=== PATIENT | female | born 1980 | race Caucasian/White ===

== ENCOUNTER 2024-11-29 12:34 | Emergency (ER) | payer OTHER, SELFPAY ==
[2024-11-29 12:44] VITALS: BP 145/87; PULSE 89; RESP 20; TEMP 36.3; O2SAT 100
--- NOTE | 2024-11-29 12:49 | ED.ABDPAIN ---
HPI - Abdominal Pain General Chief Complaint: Abdominal Pain Stated Complaint: Back pain, constipation, vomiting Source: patient and RN notes reviewed Mode of arrival: ambulatory Limitations: no limitations History of Present Illness HPI narrative: [age] old with a history of Crohn's disease presented for complaint nausea vomiting, and LLQ abdominal pain; onset today. Describes the LLQ pain as stabbing. Also reports constipation which she described as small hard BMs over the past few days. Endorses pressure to the mid low back and stomach burning sensation. Pt was diagnosed with cyclical vomiting in Sep, which she says has improved for about 2 weeks. During that time she has had little appetite. Did not try Zofran today, stating it no longer works and everything makes her vomit. Unable to keep any food down today. Pt has hx lumbar fusion for DDD with anterior approach (2016). Has been taking Percocet over the past few days for back pain after moving. Related Data Allergies Allergy/AdvReac Type Severity Reaction Status Date / Time prochlorperazine Allergy Intermediate RACING Verified 11/29/24 12:50 HEART, JITTERY, ANXIETY sulfasalazine Allergy Intermediate RACING Verified 11/29/24 12:50 HEART, SOB Review of Systems Review of Systems: CONSTITUTIONAL: Denies body aches, fever, chills ENT: Denies rhinorrhea, congestion CARDIOVASCULAR: Denies chest pain, palpitations, or edema. RESPIRATORY: Denies cough or dyspnea. GASTROINTESTINAL: Endorses LLQ abdominal pain, nausea, vomiting, constipation. Denies diarrhea, hematochezia, melena, hematemesis GENITOURINARY: Denies dysuria, hematuria, or CVA tenderness. MUSCULOSKELETAL: reports low back pain, denies joint pain, or myalgia. NEUROLOGIC: Denies headache, numbness, tingling, or weakness. All systems reviewed & are unremarkable except as noted in HPI and below PMFSH Past Medical History Medical History (Updated 11/29/24 @ 13:16 by Bev Crook, BHAKTI) Fusion of lumbar spine Rheumatoid arthritis Crohn disease Comments At time of signature, I have reviewed and agree with nursing past medical, surgical, social and family history unless otherwise noted. Please see nursing chart for further information. There is no relevant family history pertinent to the presenting complaint Exam Narrative: GENERAL: ill-appearing, nontoxic and in no acute distress. ENT: Mucous membranes pink and moist. CHEST: No respiratory distress. Clear to auscultation. HEART: Regular rate and rhythm. No murmur appreciated. Normal peripheral pulses. ABDOMEN: abd soft, nondistended, decreased bowel sounds. Body habitus limits exam. Tender abdomen LLQ; No guarding, rebound tenderness, asymmetry EXTREMITIES: Normal range of motion. No edema. SKIN: Warm, dry, no rash. Capillary refill normal. Normal skin turgor. NEURO: No focal deficits. Alert and oriented x3. PSYCH: Normal affect. Course Course Emergency Course: Patient is aware of diagnosis, understands and agrees to treatment plan. Anticipatory guidance given. Patient agrees to follow-up as directed and is aware of reasons to seek care at the emergency department. Portions of this record may have been created with voice recognition software Level of Care: Express Care Visit Vital Signs Vital signs: Vital Signs Temperature 97.4 F L 11/29/24 12:44 Pulse Rate 89 11/29/24 12:44 Respiratory Rate 20 11/29/24 12:44 Blood Pressure 145/87 H 11/29/24 12:44 Pulse Oximetry 100 11/29/24 12:44 Oxygen Delivery Room Air 11/29/24 12:44 Temperature 97.4 F L 11/29/24 12:44 Pulse Rate 89 11/29/24 12:44 Respiratory Rate 20 11/29/24 12:44 Blood Pressure 145/87 H 11/29/24 12:44 Pulse Oximetry 100 11/29/24 12:44 Oxygen Delivery Room Air 11/29/24 12:44 Transfer Transfered to: [facility] Transportation: Other (Private vehicle) Transfer rationale: Pt is agreeable to transfer. Requests transfer to [facility] via private vehicle. Risks of transportation reviewed with pt including injury, worsening of condition and . v/u. Mother will be driving pt; Report called to hospital, spoke with Dr Carrasco, accepting physician. Pt is in stable condition at time of transfer. Advised to remain NPO and go directly to the hospital. MDM - Abdominal Pain MDM Narrative Medical decision making narrative: Pt presented with n/v, constipation and LLQ abdominal pain. Pt with frequent dry heaves in clinic. Offered Zofran, pt declined stating it no longer works and everything makes her vomit. Advised ER transfer. Requests [facility]. Differential Diagnosis Differential diagnosis: Likely abdominal pain, acute appendicitis, calculus of kidney, constipation, diverticulitis, gastroenteritis, pancreatitis and small bowel obstruction Discharge Plan Discharge Clinical Impression: Vomiting Patient Disposition: Acute Care Hospital Condition: Stable Patient Language: Italian Follow-up/Referrals: UNKNOWN,DOCTOR [Primary Care Provider] - Time of Disposition: 13:05
--- NOTE | 2024-11-29 13:10 | PC.NURSE ---
PT REPORTS SHE IS UNABLE TO TAKE ZOFRAN IT DOESN'T WORK, IT MAKES ME PUKE.
== END 2024-11-29 13:15 | disposition short-term general hospital (02) ==
PROVIDERS: Emergency Provider Nurse Practitioner Family
DX: R11.10 Vomiting, unspecified (principal); K50.90 Crohn's disease, unspecified, without complications; M06.9 Rheumatoid arthritis, unspecified; M51.369 Other intervertebral disc degeneration, lumbar region without mention of lumbar back pain or lower extremity pain
CPT/HCPCS: 99202; 99213; G0463

== ENCOUNTER 2024-11-29 13:38 | Emergency (ER) | payer OTHER, SELFPAY ==
--- NOTE | ~2024-11-29 | CT_ITS ---
EXAMINATION: CT abdomen pelvis w con DATE: 11/29/2024 16:21 INDICATION: n/v/constipation. hx crohns TECHNIQUE: Computed tomography (CT) of the abdomen and pelvis was performed with 100 mL Omnipaque-350 intravenous contrast. Automated exposure control and iterative reconstruction technique were employe d. The dose-length product was 1432.13 mGy-cm. COMPARISON: 02/09/2019. FINDINGS: Lower thorax: Unremarkable Liver: Normal. Biliary/Gallbladder: Gallbladder is normal. No bile duct dilation. Pancreas: No mass or duct dilation. Spleen: Normal. Adrenals:No mass. Kidneys: No suspicious mass, obstructing stone, or hydronephrosis. Punctate bilateral nonobstructing calcifications. GI tract: Large hiatal hernia containing approximately two thirds of the stomach, with organoaxial po sitioning. No abnormal wall thickening, pneumatosis, significant gastric distention, or surrounding i nflammatory change/fluid. No small or large bowel dilation. Normal appendix. Mesentery/Peritoneum: No ascites, mass, or free air. Retroperitoneum: No mass. Pelvis: Normal urinary bladder. IUD, the left limb extends to the uterine margin which is focally out pouching. Exophytic fundal uterine fibroid. Normal bilateral ovaries. Soft Tissues: Small uncomplicated acute fat-containing umbilical hernia Bones: No acute osseous finding. Uncomplicated appearing anterior lumbar fusion hardware. IMPRESSION: Large hiatal hernia containing two thirds of the stomach, no CT evidence of gastric inflammation, obs truction, or ischemia to suggest gastric volvulus. Punctate bilateral nephrolithiasis without evidence of obstructive uropathy. IUD with near perforation at the tip of the left limb. Reviewed, dictated and finalized at location K. IMPRESSION: Large hiatal hernia containing two thirds of the stomach, no CT evidence of gas tric inflammation, obstruction, or ischemia to suggest gastric volvulus. Punctate bilateral nephrolithiasis without evidence of obstructive uropathy. IUD with near perforation at the tip of the left limb.
[2024-11-29 13:40] VITALS: BP 146/84; PULSE 86; RESP 20; TEMP 36.5; O2SAT 100
[2024-11-29 14:42] VITALS: BP 143/86; PULSE 84; RESP 20; O2SAT 97
[2024-11-29 14:45] LABS: BEDSIDEPREGUCG Negative (Negative)
[2024-11-29 14:56] LABS: Basophils Percent Auto 0.4 % (0.2-1.2); Eosinophils Percent Auto 0.2 % (0-4.4); Hematocrit 25.8 % (37.0-47.0); Hemoglobin 7.2 g/dL (12.0-15.0); Immature Granulocyte Absolute 0.05 K/mm3 (0.00-0.031); Immature Granulocyte Percent A 0.5 % (0-0.5); Lymphocytes Absolute Auto 0.98 K/mm3 (0.9-3.2); Lymphocytes Percent Auto 9.3 % (18.3-44.2); Mean Corpuscular HGB Conc 27.9 g/dl (32-36); Mean Corpuscular Hemoglobin 21.8 pg (26-34); Mean Corpuscular Volume 77.9 fl (80-100); Mean Platelet Volume 11.9 fl (7.4-10.4); Monocytes Absolute Auto 0.4 K/mm3 (0.1-0.6); Monocytes Percent Auto 3.3 % (2.6-8.5); Neutrophils Absolute Auto 9.1 K/mm3 (1.3-6.7); Neutrophils Percent Auto 86.3 % (45.5-73.1); Platelet Count Result 297 k/mm3 (150-375); Red Blood Count 3.31 M/mm3 (4.2-5.4); Red Cell Distribution Width 19.3 % (11.5-14.5); White Blood Count 10.5 K/mm3 (4.5-10.0)
[2024-11-29 15:00] LABS: Add Urine Microscopic? YES; Appearance Urine Cloudy (Clear); Bacteria Urine None Seen /hpf; Bilirubin Urine Negative (Negative); Blood Urine Negative (Negative); Color Urine Yellow (Yellow); Glucose Urine UA Negative (Negative); Ketones Urine 3+ mg/dL (Negative); Leukocyte Esterase Ur Negative LEU/UL (Negative); Nitrate Urine Negative (Negative); Non Pathogenic Casts 0-2; Protein Urine Trace mg/dL (Negative); RBC Urine 0-2 /hpf (0-2); Squamous Epithelial Cell Urine None Seen /hpf (Few); Urobilinogen Urine 0.2 mg/dL (<2.0); WBC Urine 0-5 /hpf (0-3); pH Urine 7.5 (5.0-9.0)
[2024-11-29 15:13] LABS: Alanine Aminotransferase 20 U/L (6-35); Albumin Level 4.5 g/dL (3.5-5.1); Alkaline Phosphatase 87 U/L (38-126); Anion Gap 14 mmol/L (4-12); Aspartate Amino Transferase 33 U/L (14-36); Bilirubin,Total 0.6 mg/dL (0.2-1.3); Blood Urea Nitrogen 12 mg/dL (7-17); Carbon Dioxide 22 mmol/L (22-30); Chloride 105 mmol/L (98-107); Estimated CRCL calculation 114 ml/min; Estimated Glomerular Filt Rate > 60; Glucose 145 mg/dL (65-110); Lipase 50 U/L (23-300); Potassium 4.4 mmol/L (3.4-5.0); Sodium 141 mmol/L (137-145)
[2024-11-29 15:27] LABS: Platelet Estimate Adequate (Adequate); Schistocytes None Seen
[2024-11-29 15:28] LABS: Anisocytosis 3+; Hypochromasia 1+
--- NOTE | 2024-11-29 15:28 | ED_ITS ---
HPI - Abdominal Pain General Chief Complaint: Abdominal Pain Stated Complaint: Abdominal, Back pain/constipation and vomiting Time Seen by Provider: 11/29/24 14:30 History of Present Illness HPI narrative: 44-year-old female with a past medical history including Crohn's, rheumatoid arthritis, cyclic vomiting syndrome. Patient has had multiple evaluations by GI in the past and has had imaging studies and multiple biologic agent treatments. She has been stating she has had nausea vomiting for several days and not able to tolerate p.o. intake. She states she has been down with some chronic back pain, took Percocet at home for this and had a last bowel movement yesterday. Reports nausea vomiting and retching today. Denies any fever, chills, chest pain, shortness a breath. No injury or trauma. Was otherwise in her normal state of health. Related Data Allergies Allergy/AdvReac Type Severity Reaction Status Date / Time prochlorperazine Allergy Intermediate RACING Verified 11/29/24 14:44 HEART, JITTERY, ANXIETY sulfasalazine Allergy Intermediate RACING Verified 11/29/24 14:44 HEART, SOB Review of Systems 2 Review of Systems: As reviewed above in HPI [facility] Past Medical History Medical History Fusion of lumbar spine Rheumatoid arthritis Crohn disease Exam 2 Narrative: GENERAL: Retching and vomiting, not any acute physical distress, answering questions appropriately HEAD: [Normocephalic, atraumatic.] EYES: [PERRLA and EOMI.] ENT: Nares clear, no rhinorrhea or epistaxis. Mucous membranes moist. NECK: Supple. CHEST: [Clear to auscultation. No respiratory distress.] HEART: [Regular rate and rhythm]. No murmur heard. [Normal peripheral pulses.] ABDOMEN: Obese but nondistended, [nontender], [No rigidity or guarding] EXTREMITIES: Normal range of motion. [No edema.] SKIN: Warm, dry, no rash. NEURO: [No focal deficits]. Alert and oriented [x3.] PSYCH: [Normal mood and affect.] Course Vital Signs Vital signs: Vital Signs Temperature 36.5 C 11/29/24 13:40 Pulse Rate 86 11/29/24 13:40 Respiratory Rate 20 11/29/24 13:40 Blood Pressure 146/84 H 11/29/24 13:40 Pulse Oximetry 100 11/29/24 13:40 Oxygen Delivery Room Air 11/29/24 13:40 Temperature 36.5 C 11/29/24 13:40 Pulse Rate 92 11/29/24 18:24 Respiratory Rate 25 H 11/29/24 18:24 Blood Pressure 148/85 H 11/29/24 18:24 Pulse Oximetry 99 11/29/24 18:24 Oxygen Delivery Room Air 11/29/24 13:40 MDM - Abdominal Pain MDM Narrative Medical decision making narrative: 44-year-old female with a past medical history including cyclic vomiting syndrome, Crohn's disease, rheumatoid arthritis. She is on several a biologic agents and has had 3 episodes of cyclic vomiting since this last year. She has not had any antiemetic therapy at home. Endorses some constipation but last bowel movement was yesterday. She has an obese abdomen that is soft and nontender, retching throughout the examination with spit up without any vomiting. States this feels like her normal cyclic vomiting syndrome. Has had multiple GI evaluations previously. She is not any acute distress. Has a otherwise reassuring set of vitals with stable hypertension. Considerations presently are for gastroenteritis, gastritis, cyclic vomiting syndrome, cannabis hyperemesis, less likely intra-abdominal process such as bowel obstruction or Crohn's flare. Workup was ordered this time including CBC, CMP, lipase, test, urinalysis. A CT of the abdomen pelvis was ordered she was given a fluid bolus with D5 LR, Haldol and Benadryl was ordered for vomiting. Patient was frequent re-evaluated with significant improvement her nausea and vomiting. She states she was no longer nauseous or retching but had some restless legs likely secondary to the Haldol. She is given Atarax additional Benadryl which resolved this. Patient's workup shows no leukocytosis, anemia 7.2 which is largely worse than her baseline but not severe. Not requiring blood transfusion. Normal platelet count. No active bleeding. Electrolytes show no derangements, normal renal function, normal glucose and LFTs. Normal lipase. Urinalysis shows some ketones likely secondary to starvation ketosis from her nausea vomiting. No signs of infection the urine. Negative test. CT scan shows a large hiatal hernia containing 2/3 of the stomach, patient knows that she has a hiatal hernia but did not notice this severe. No evidence of gastric inflammation obstruction or ischemia. There is also evidence of an IUD with left limb extending to the uterine margin concerning for focal outpouching. I discussed the CT findings with the OBGYN on-call Dr. Mazariegos who was not concerned based on the imaging and the read and patient can follow- up outpatient with either her her regular OBGYN for removal. Patient was made aware of the diagnosis here as well as the CT findings. She has been symptomatic improved and hemodynamically stable. She is safe and comfortable for discharge home at this time with regular PCP follow-up. She will be sent home with OBGYN and PCP follow-up. Medical Records Attestation: I reviewed the patient's medical records. Lab Data Attestation: I reviewed the patient's lab results. 11/29/24 14:45 11/29/24 14:45 Labs: Lab Results 11/29/24 11/29/24 Range/Units 14:42 14:45 WBC 10.5 H (4.5-10.0) K/mm3 RBC 3.31 L (4.2-5.4) M/mm3 Hgb 7.2 L (12.0-15.0) g/dL Hct 25.8 L (37.0-47.0) % MCV 77.9 L (80-100) fl MCH 21.8 L (26-34) pg MCHC 27.9 L (32-36) g/dl RDW 19.3 H (11.5-14.5) % Plt Count 297 (150-375) k/mm3 MPV 11.9 H (7.4-10.4) fl Immature Gran % (Auto) 0.5 (0-0.5) % Neut % (Auto) 86.3 H (45.5-73.1) % Lymph % (Auto) 9.3 L (18.3-44.2) % [place] % (Auto) 3.3 (2.6-8.5) % Eos % (Auto) 0.2 (0-4.4) % Baso % (Auto) 0.4 (0.2-1.2) % Lymph # (Auto) 0.98 (0.9-3.2) K/mm3 [place] # (Auto) 0.4 (0.1-0.6) K/mm3 Eos # (Auto) 0.0 (0-0.3) K/mm3 Baso # (Auto) 0.0 (0.0-0.1) K/mm3 Abs Immat Gran (auto) 0.05 H (0.00-0.031) K/mm3 Absolute Neuts (auto) 9.1 H (1.3-6.7) K/mm3 Absolute Nucleated RBC 0.000 (0.0-0.012) K/mm3 Band Neutrophils % 0 (0-6) % Nucleated RBC % 0.0 (0.0-0.2) % Platelet Estimate Adequate (Adequate) Clumped Platelets Present Hypochromasia 1+ Anisocytosis 3+ Microcytosis 1+ (NORMAL) Schistocytes None seen Sodium 141 (137-145) mmol/L Potassium 4.4 (3.4-5.0) mmol/L Chloride 105 (98-107) mmol/L Carbon Dioxide 22 (22-30) mmol/L Anion Gap 14 H (4-12) mmol/L BUN 12 (7-17) mg/dL Creatinine 0.73 (0.7-1.0) mg/dL Estim Creat Clear Calc 114 ml/min Estimated GFR > 60 (59 - ) Glucose 145 H (65-110) mg/dL Calcium 9.0 (8.4-10.2) mg/dL Total Bilirubin 0.6 (0.2-1.3) mg/dL AST 33 (14-36) U/L ALT 20 (6-35) U/L Alkaline Phosphatase 87 (38-126) U/L Total Protein 8.0 (6.3-8.2) g/dL Albumin 4.5 (3.5-5.1) g/dL Lipase 50 (23-300) U/L Urine Color Yellow (Yellow) Urine Appearance Cloudy H (Clear) Urine pH 7.5 (5.0-9.0) Ur Specific [place] 1.020 (1.001-1.035) Urine Protein Trace (Negative) mg/dL Urine Glucose (UA) Negative (Negative) mg/dL Urine Ketones 3+ H (Negative) mg/dL Ur Blood (Man) Negative (Negative) Urine Nitrate Negative (Negative) Urine Bilirubin Negative (Negative) Urine Urobilinogen 0.2 (<2.0) mg/dL Leukocyte Esterase Rfl Negative (Negative) IVAN/UL Urine RBC 0-2 (0-2) /hpf Urine WBC 0-5 (0-3) /hpf Ur Squamous Epith Cells None seen (Few) /hpf Urine Bacteria None seen /hpf Urine Casts 0-2 POC Urine HCG, Qual Negative (Negative) Imaging Data Attestation: I personally reviewed and interpreted this imaging study as follows: My impression: Impressions Abdomen/Pelvis CT 11/29/24 16:29 IMPRESSION: Large hiatal hernia containing two thirds of the stomach, no CT evidence of gastric inflammation, obstruction, or ischemia to suggest gastric volvulus. Punctate bilateral nephrolithiasis without evidence of obstructive uropathy. IUD with near perforation at the tip of the left limb. Radiologist's impression: ITS Impressions Abdomen/Pelvis CT 11/29/24 16:29 IMPRESSION: Large hiatal hernia containing two thirds of the stomach, no CT evidence of gastric inflammation, obstruction, or ischemia to suggest gastric volvulus. Punctate bilateral nephrolithiasis without evidence of obstructive uropathy. IUD with near perforation at the tip of the left limb. Discharge Plan Discharge Clinical Impression: Cyclic vomiting syndrome, Large hiatal hernia, Malpositioned IUD Patient Disposition: Home, Self-Care Condition: Stable Instructions: Antibiotic Form, Hiatal Hernia (DC), Cyclic Vomiting Syndrome (ED) Additional Instructions: Your CT scan shows a large hiatal hernia containing 2/3 of your stomach which is likely worsening your cyclic vomiting syndrome. Will refer you to a general surgeon to evaluate you outpatient for this and potentially offer treatment regimens or surgery to fix this. Your IUD is also malposition and which requires removal on outpatient basis. We have provided you an OBGYN they can call and see on a short-term basis or follow-up with your regular OBGYN for this. Return if you have any new or worsening concerns such as intractable nausea, vomiting abdominal or pelvic pain, fever chills or any other concerns. We will head you home with some medications to control cyclic vomiting if it recurs at home. Patient Language: [place] Prescriptions: New metoclopramide HCl [Reglan] 10 mg tablet 10 mg PO Q6H PRN (Reason: nausea and vomiting) Qty: 20 0RF diphenhydramine HCl 50 mg capsule 50 mg PO HS PRN (Reason: nausea and vomiting) Qty: 20 0RF Follow-up/Referrals: Prelutskdemarcus,Len Harrison [Other] Neisha Mazariegos MD [Physician] - 3 Days (IUD removal) Kelby Echavarria DO [Physician] - 1 Week (Hiatal hernia eval for surgery) Time of Disposition: 19:05
[2024-11-29 15:30] LABS: Microcytosis 1+ (NORMAL)
[2024-11-29 15:31] LABS: Band Neutrophils Percent 0 % (0-6); Platelet Clumps Present
[2024-11-29] MEDS: diphenhydrAMINE HCl INJ 50 MG/ML VIAL 25 MG IV PUSH ×2 (15:34→18:24)
[2024-11-29] MEDS: HALOPERIDOL LACTATE 5 MG/ML VIAL IV PUSH (15:36)
[2024-11-29] MEDS: DEXTROSE 5%/LACTATED RINGERS 1,000 ML 1000 ML IV CONT (15:38)
[2024-11-29 15:40] VITALS: BP 146/89; PULSE 83; RESP 24; O2SAT 97
--- OUTSIDE RECORDS SUMMARY | 2024-11-29 15:43 | XMS_ITS | Patient Health Summary ---
Author Organization 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 This disclosure is being madepursuant to the Care Everywhere program and may not contain all information available regarding this patient. Last updated 18.[facility] Allergies * Cosyntropin(Unknown) * Sulfa Drugs * Sulfasalazine(Dizziness,Palpitations,Unknown) -Low Criticality * Wasp Venom Protein(Swelling) -Medium Criticality Medications * Be aware that medications may not be up to date on this document. Alwaysverify current medications with the patient. * acetaZOLAMIDE ER 12hr (Diamox Sequel) 500 MG capsule(Started 11/06/2022) TAKE 1 CAPSULE(500 MG) BY MOUTH TWICE DAILY * adalimumab (Humira Pen) 40 MG/0.4ML injection(Started 11/11/2022) INJECT 0.4 ML (40 MG) UNDER THE SKIN EVERY 14 DAYS * albuterol HFA (Proventil; Ventolin; Proair) 108 (90 Base) MCG/ACT inhaler (Started 02/19/2023) Inhale 2 (two) puffs by mouth every 6 hours as needed * amitriptyline (Elavil) 100 MG tablet(Started 05/18/2023) Take 1 (one) tablet by mouth at bedtime * ARIPiprazole (Abilify) 5 MG tablet(Started 05/19/2023) Take 1 (one) tablet by mouth every morning * azaTHIOprine (Imuran) 50 MG tablet(Started 10/02/2022) Take 2 tabs po qam and 1 tab po qpm. * EPINEPHrine (Epipen) 0.3 MG/0.3ML auto-injector pen Inject 0.3 mL into muscle once daily as needed * FLUoxetine (PROzac) 60 MG tablet(Started 04/28/2023) Take 1 (one) tablet by mouth once daily * gabapentin (Neurontin) 600 MG tablet(Started 11/06/2022) Take 1 (one) tablet by mouth at bedtime * gabapentin (Neurontin) 300 MG capsule(Started 11/06/2022) Take 1 (one) capsule by mouth 2 times daily * haloperidol (Haldol) 2 MG tablet(Started 02/17/2022) Take 1 (one) tablet by mouth every 6 hours as needed * levonorgestrel (Mirena) 20 MCG/DAY IUD(Started 04/02/2022) * methylphenidate CR (Metadate Cd) 20 MG capsule(Started 05/24/2023) * mirabegron ER 24hr (Myrbetriq) 25 MG tablet(Started 04/30/2023) Take 1 (one) tablet by mouth once daily 2 refills remaining * omeprazole (PriLOSEC) 20 MG capsule Take 2 (two) capsules by mouth once daily * ondansetron, disintegrating, (Zofran ODT) 8 MG tablet(Started 02/18/2022) 1 tablet on the tongue and allow to dissolve as needed Orally Once a day for 6 day(s) * traMADol (Ultram) 50 MG tablet 1 tablet as needed Orally every 6 hrs * meloxicam (Mobic) 15 MG tablet(Started 05/22/2023) Take 1 (one) tablet by mouth once daily 11 refills remaining Social History Tobacco Use Types Packs/Day Years Used Date Smoking Tobacco: Former Smokeless Tobacco: Never Tobacco Cessation:Counseling Given: Not Answered Alcohol Use Standard Drinks/Week Comments Not Currently 0 (1 standard drink = 0.6 oz pur e alcohol) Sex and Gender Information Value Date Recorded Sex Assigned at Female 04/02/2023 4:35 PM CDT Gender Identity Female 04/02/2023 4:35 PM CDT Sexual Orientation Bisexual 04/02/2023 4: 35 PM CDT Last Filed Vital Signs Vital Sign Reading Time Taken Comments Blood Pressure 126/86 06/02/2023 1:03 PM CDT Pulse 79 05/09/2023 10:50 PM CDT Temperature 36.6 C (97.8 F) 05/09/2023 10:50 PM CDT Respiratory Rate 20 05/09/2023 10:50 PM CDT Oxygen Saturation 98% 05/09/2023 11:32 PM CDT Inhaled Oxygen Concentration - - Weight 124.7 kg (275 lb) 06/02/2023 1:03 PM CDT Height 167.6 cm (5' 6 ) 06/02/2023 1:03 PM CDT Body Mass Index 44.39 06/02/2023 1:03 PM CDT Procedures * PAP IMAGE-GUIDED W HPV(Performed 06/02/2023) Performed for Encounter for gynecological examination with abnormal finding * HPV DETECTION HIGH RISK SHELDON(Performed 06/02/2023) Performed for Encounter for gynecological examination with abnormal finding * US PELVIS W TRANSVAG W DOP NON OB(Performed 05/09/2023) Performed for LLQ pain * URINE MICROSCOPIC ONLY(Performed 05/09/2023) * HCG URINE QUALITATIVE(Performed 05/09/2023) * URINALYSIS REFLEX TO MICROSCOPIC NO CULTURE(Performed 05/09/2023) * COMPREHENSIVE METABOLIC PANEL(Performed 05/09/2023) * CBC W AUTO DIFFERENTIAL(Performed 05/09/2023) * INFLUENZA A+B - POINT OF CARE (AMB)(Performed 10/25/2017) Performed for Acute nasopharyngitis * CYTOLOGY SMEAR PAP THIN PREP(Performed 08/23/1998) * CYTOLOGY SMEAR PAP THIN PREP(Performed 04/18/1998) Results * HPV DETECTION HIGH RISK SHELDON (06/02/2023 1:51 PM CDT) High Risk Human Papilloma Result Not detected Not detected 06/04/2023 11:19 AM CDT [facility] High Risk Human Papilloma Interp 06/04/2023 11:19 AM CDT [facility] Comment:High Risk Human Gianni lloma Virus was Not Detected. Pathology/Cytolo gy MISCELLANEOUS SAMPLES / Unknown 06/02/2023 1:51 PM CDT 06/03/2023 12:36 PM CDT [facility] - 06/04/2023 11:19 AM CDT Nucleic acid isolated from the specimen was analyzed with a nucleic acid amplification test (FDA approved Gen-Probe HPV Assay) to detect high risk human papilloma virus (Types: 16, 18, 31, 33, 35, 39, 45, 51, 52, 56, 58, 59, 66, and 68). The reference range is Not Detected . Comment: These test results should not be used as the sole basis for clinical assessment and treatment of patients. These results should always be correlated with other available data (cytology, histology, and clinical information). Roya Kimble MD LAB - MICROB IOLOGY ORDERABLES [facility] [address] [phone] * PAP IMAGE-GUIDED W HPV (06/02/2023 1:51 PM CDT) Case Report Gynecologic Cytology Report Case: [id number] Authorizing Provider: Roya Kimble, Collected: 06/02/2023 01:51 PM Ordering Location: [facility] - Received: 06/03/2023 12:36 PM [facility] Screen: Kwame Traore Specimen: THINPREP - IMAGE GUIDED, Cervix/Endocervix 06/06/2023 3:22 PM CDT [facility] LMP iud 06/06/2023 3:22 PM CDT [facility] Menstrual Status IUD 06/06/20 3:22 PM CDT [facility] Specimen Adequacy Satisfactory for evaluation, endocervical/trans formation zone component absent. 06/06/2023 3:22 PM CDT [facility] Categorization Negative for intraepithelial lesion or malignancy. 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 06/06/2023 3:22 PM CDT [facility] Pap Footnote The Pap Smear is a screening test. False positive and false negative results occur. Negative results do not preclude abnormalities, thus clinical correlation is required. This specimen was evaluated by the [employer] System along with an additional manual rescreening by a motor vehicle parts interpreter and/or pathologist. 06/06/2023 3:22 PM CDT [facility] Embedded Images 3:22 PM CDT [facility] Pathology/Cytolo gy MISCELLANEOUS SAMPLES / Unknown 06/02/2023 1:51 PM CDT 06/03/2023 12:36 PM CDT Roya Kimble MD LAB - PATHOL OGY/CYTOLOGY ORDERABLES Performing Organization Address City/State/[facility] Co de Phone Number [facility] [address] [phone] * US PELVIS W/TRANSVAG & DOPPLER (NON OB) (05/09/2023 6:54 PM CDT) Anatomical Region Laterality Modality Pelvis Ultrasound 05/09/2023 6:58 PM CDT Impressions 05/09/2023 7:00 PM CDT IMPRESSION: 1. Possible IUD seen within the uterus. 2. Likely pedunculated fibroid along the uterine fundus, follow-up could be obtained. 3. No evidence of torsion. > Interpreting Provider: Chadwick Randall MD on 05/09/2023 7:00 PM Narrative 05/09/2023 7:00 PM CDT PROCEDURE: US PELVIS W TRANSVAG W DOP NON OB DATE/TIME OF EXAM: 05/09/2023 6:54 PM CLINICAL INFORMATION: None relevant/not provided if blank. Indication: R10.32: Left lower quadrant pain N83.202: Unspecified ovarian cyst, left side Additional History: COMPARISON: None. TECHNIQUE: Real time transabdominal and transvaginal pelvic ultrasound was performed by the leather etcher with DICOM image capture. Grayscale images were obtained; additionally, Color Doppler and pulse wave Spectral Doppler interrogation was performed and interpreted. FINDINGS: Uterus measures 7.9 x 4.2 x 5.4 cm. A fibroid is seen in the uterus. There is an IVC be suggested in the region of the cervix and the endometrial stripe measures up to 5.6 mm. Complex appearing right ovarian cyst is noted measuring 3.2 x 2.8 x 2.7 cm. There is also no evidence of torsion. The right ovary measures 4.8 x 3.4 x 3.8 cm. The left ovary measures 2.0 x 1.0 x 1.3 cm. Procedure Note Chadwick Randall MD - 05/09/2023 PROCEDURE: US PELVIS W TRANSVAG W DOP NON OB DATE/TIME OF EXAM: 05/09/2023 6:54 PM CLINICAL INFORMATION: None relevant/not provided if blank. Indication: R10.32: Left lower quadrant pain N83.202: Unspecified ovarian cyst, left side Additional History: COMPARISON: None. TECHNIQUE: Real time transabdominal and transvaginal pelvic ultrasound wasperformed by the leather etcher with DICOM image capture. Grayscale images were obtained; additionally, Color Doppler and pulse wave Spectral Doppler interrogation was performed and interpreted. FINDINGS: Uterus measures 7.9 x 4.2 x 5.4 cm. A fibroid is seen in the uterus.There is an IVC be suggested in the region of the cervix and the endometrial stripe measures up to 5.6 mm. Complex appearing right ovarian cyst isnoted measuring 3.2 x 2.8 x 2.7 cm. There is also no evidence of torsion. The right ovary measures 4.8 x 3.4 x 3.8 cm. The left ovary measures 2.0 x1.0 x 1.3 cm. IMPRESSION: 1. Possible IUD seen within the uterus. 2. Likely pedunculated fibroid along the uterine fundus, follow-up couldbe obtained. 3. No evidence of torsion. > Interpreting Provider: Chadwick Randall MD on 05/09/2023 7:00 PM Bree London PA-C US ORDERABLES * (ABNORMAL) URINALYSIS REFLEX TO MICROSCOPIC NO CULTURE (05/09/2023 5:44 PM CDT) Color UA Yellow Straw, Yellow 05/09/2023 5:[address] [facility] Clarity UA Slt Cloudy(A) Clear 05/09/2023 5:[address] [facility] Glucose UA Negative Negative 05/09/2023 5:[address] [facility] Bilirubin UA Negative Negative 05/09/2023 5:[address] [facility] Ketone UA Negative Negative 05/09/2023 5:[address] [facility] Specific Polk UA 1.006 1.005 - 1.030 05/09/2023 5:[address] [facility] Blood UA 1+(A) Negative 05/09/2023 5:[address] [facility] pH UA 6.0 5.0 - 8.0 pH 05/09/2023 5:[address] [facility] Protein UA Negative Negative 05/09/2023 5:[address] [facility] Urobilinogen UA Negative Negative mg/dL 05/09/2023 5:[address] [facility] Nitrite UA Negative Negative 05/09/2023 5:[address] [facility] Leukocyte UA Negative Negative 05/09/2023 5:[address] [facility] Urine Microscopy Urine microscopy to follow 05/09/2023 5:[address] [facility] Urine URINE SPECIMEN OBTAINED BY CLEAN CATCH PROCEDURE / Unknown Collection / Unknown 05/09/2023 5:44 PM CDT 05/09/2023 5:[address] [facility] - 05/09/2023 5:51 PM CDT Bree London PA-C LAB - URINALYSIS O RDVICTORINA Performing Organization Address City/State/[facility] Co de Phone Number [facility] [address] [place] [address] * HCG URINE QUALITATIVE (05/09/2023 5:44 PM CDT) hCG Qualitative Urine Negative Negative 05/09/2023 5:[address] [facility] Urine URINE / Unknown Collection / Unknown 05/09/2023 5:44 PM CDT 05/09/2023 5:46 PM CDT Bree London PA-C LAB - URINALYSIS O RDERABLES Performing Organization Address [facility]/ZIP Co de Phone Number [facility] [address] [place], [place] [phone] * URINE MICROSCOPIC ONLY (05/09/2023 5:44 PM CDT) RBC UA 0-2 0 - 5 # /hpf 05/09/2023 5:[address] [facility] WBC UA 0-5 0 - 5 # /hpf 05/09/2023 5:[address] [facility] Bacteria UA None Seen None Seen 05/09/2023 5:[address] [facility] Squamous Epithelial Cells 3-5 0 - 5 /hpf 05/09/2023 5:[address] [facility] Urine URINE SPECIMEN OBTAINED BY CLEAN CATCH PROCEDURE / Unknown Collection / Unknown 05/09/2023 5:44 PM CDT 05/09/2023 5:[address] [facility] - 05/09/2023 5:55 PM CDT Bree London PA-C LAB - URINALYSIS O RDERABLES Performing Organization Address [facility] Co de Phone Number [facility] [address] [place], [place] [phone] * CBC W AUTO DIFFERENTIAL (05/09/2023 5:29 PM CDT) WBC 8.7 4.4 - 10.7 x10E9/L 05/09/2023 5:[address] [facility] WBC Corrected 05/09/2023 5:[address] [facility] RBC 4.32 3.80 - 5.20 x10E12/L 05/09/2023 5:[address] [facility] Hemoglobin 13.3 12.0 - 15.6 gm/dL 05/09/2023 5:[address] [facility] Hematocrit 40.9 35.9 - 45.5 % 05/09/2023 5:[address] [facility] MCV 94.7 80.7 - 98.3 fl 05/09/2023 5:[address] [facility] MCH 30.8 26.7 - 34.0 pg 05/09/2023 5:[address] [facility] MCHC 32.5 30.8 - 35.9 gm/dL 05/09/2023 5:[address] [facility] Platelet Count 271 153 - 416 x10E9/L 05/09/2023 5:[address] [facility] RDW-CV 13.1 12.1 - 14.9 % 05/09/2023 5:[address] [facility] MPV 9.5 9.4 - 12.9 fl 05/09/2023 5:[address] [facility] Neutrophils % 70.4 44.0 - 73.0 % 05/09/2023 5:[address] [facility] Lymphocytes % 22.5 20.0 - 43.0 % 05/09/2023 5:[address] [facility] Monocytes % 5.6 5.0 - 13.0 % 05/09/2023 5:[address] [facility] Eosinophils % 0.7 0.0 - 6.0 % 05/09/2023 5:[address] [facility] Basophils % 0.6 0.0 - 2.0 % 05/09/2023 5:[address] [facility] Immature Granulocytes 0.2 0 - 1 % 05/09/2023 5:[address] [facility] Neutrophil Absolute 6.12 2.01 - 7.14 x10E9/L 05/09/2023 5:[address] [facility] Lymphocytes Absolute 1.96 1.07 - 3.94 x10E9/L 05/09/2023 5:[address] [facility] Monocytes Absolute 0.49 0.26 - 1.07 x10E9/L 05/09/2023 5:[address] [facility] Eosinophils Absolute 0.06 0 - 0.47 x10E9/L 05/09/2023 5:[address] [facility] Basophils Absolute 0.05 0 - 0.08 x10E9/L 05/09/2023 5:[address] [facility] Immature Granulocytes Absolute 0.02 0.00 - 0.06 x10E9/L 05/09/2023 5:[address] [facility] nRBC Auto 0 /100 WBC 05/09/2023 5:[address] [facility] Blood BLOOD SPECIMEN / Unknown Venipuncture / Unknown 05/09/2023 5:29 PM CDT 05/09/2023 5:34 PM CDT Bree London PA-C LAB - HEMATOLOGY O RDERABLES [facility] [address] [place], [place] [phone] * (ABNORMAL) COMPREHENSIVE METABOLIC PANEL (05/09/2023 5:29 PM CDT) Glucose 114(H) 70 - 105 mg/dL 05/09/2023 5:[address] [facility] Sodium 137 136 - 145 mmol/L 05/09/2023 5:[address] [facility] Potassium 3.6 3.5 - 5.1 mmol/L 05/09/2023 5:[address] [facility] Chloride 107 98 - 107 mmol/L 05/09/2023 5:[address] [facility] CO2 19(L) 22 - 29 mmol/L 05/09/2023 5:[address] [facility] Calcium 9.2 8.4 - 10.4 mg/dL 05/09/2023 5:[address] [facility] Anion Gap 11 6 - 16 mmol/L 05/09/2023 5:[address] [facility] BUN 5(L) 5.3 - 18.7 mg/dL 05/09/2023 5:[address] [facility] Creatinine 0.90 0.57 - 1.11 mg/dL 05/09/2023 5:[address] [facility] Alkaline Phosphatase 86 40 - 150 U/L 05/09/2023 5:[address] [facility] ALT 18 0 - 55 U/L 05/09/2023 5:[address] [facility] AST 21 5 - 34 U/L 05/09/2023 5:[address] [facility] Protein Total 8.3 6.4 - 8.3 gm/dL 05/09/2023 5:[address] [facility] Albumin 4.1 3.4 - 5.0 gm/dL 05/09/2023 5:[address] [facility] Bilirubin Total 0.6 0.2 - 1.2 mg/dL 05/09/2023 5:[address] [facility] eGFR by CKD-EPI 82(L) >=90 mL/min/1.7 3 m2 05/09/2023 5:[address] [facility] Blood BLOOD SPECIMEN / Unknown Venipuncture / Unknown 05/09/2023 5:29 PM CDT 05/09/2023 5:34 PM CDT Bree London PA-C LAB - CHEMISTRY OR DERABLES 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 Result CASE NUMBER [id number] Comment: ORDERING PHYSICIAN DENISE SANTO SPECIMEN TYPE PAP Smear Date 08/23/1998 Procedure Cervical/Endocervical, 1 Vial for Thin Prep Received Specimen Adequacy Satisfactory for Evaluation Categorization Within Normal Limits Snomed. 09/04/1998 1627 <1> Resource Economist Milena Luis(ASCP) Pathologist. Chan Martínez M.D. PAP Footnote The PAP smear is only a screening procedure to aid in the detection of cervical cancer and its precursors. It is not a diagnostic procedure and should not be used as the sole means to detect cervical cancer. Both false negative and false positive results have been experienced. 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
--- OUTSIDE RECORDS SUMMARY | 2024-11-29 15:43 | XMS_ITS | Clinical Summary ---
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 Prn Active omeprazole (PriLOSEC) 20 mg Capsule, Delayed Release(E.C.) Take 40 mg by mouth daily . Active EPINEPHrine (EPIPEN) 0.3 mg/0.3 mL Auto-Injector Inject 0.3 mg by intramuscular injection 1 time daily as needed for Anaphylaxis. Active ondansetron HCl (ZOFRAN ORAL) Take 4 mg by mouth. Active FLUoxetine (PROzac) 20 mg capsule Take 3 Capsules (60 mg) by mouth daily. 90 Capsule 0 Active ALPRAZolam (XANAX) 0.5 mg tabletIndicati ons:Family history of breast cancer in mother Take 1 Tablet (0.5 mg) by mouth nightly as needed for Anxiety. 30 Tablet 0 Active gabapentin (NEURONTIN) 300 mg capsule Take 300 mg by mouth 3 times daily. Active methylphenidat e HCl (RITALIN) 10 mg tablet Take 10 mg by mouth 2 times daily. Active haloperidoL (HALDOL) 2 mg tablet Take 1 Tablet (2 mg) by mouth every 6 hours as needed (vomiting). 10 Tablet 2 Active ARIPiprazole 5 mg tablet Take 5 mg by mouth daily. Active amitriptyline (ELAVIL) 50 mg tablet Take 50 mg by mouth daily at bedtime. 1 Active azaTHIOprine (IMURAN) 50 mg tablet 3 Active adalimumab (Humira,CF, Pen) 40 mg/0.4 mL Pen Injector Kit Inject 40 mg by subcutaneous injection. 3 Active Active Problems Patient Care Coordination No te Formatting of this note migh t be different from the original. Primary Care: Len Tran MD (General) Referring Provider: Marjorie Jeffrey MD [address] [facility] [address] [place] [address] Other: Problem Noted Date Diagnosed Date Intractable nausea and vomiting 02/18/2022 Leukocytosis (leucocytosis) 02/18/2022 Hypokalemia 02/18/2022 Moderate episode of recurrent major depressive d isorder 02/17/2020 Tobacco use 09/03/2019 Family history of BRCA1 gene positive 05/24/2015 Lump of breast, left 05/23/2015 Depression 03/06/2010 Crohn disease Arthritis Overview (03/06/2010): Secondary to Crohn's Marijuana use Resolved Problems Problem Noted Date Diagnosed Date Resolved Date Psychiatric disorder 010 Encounters Date Type Department Care Team Description 11/29/2024 External Device Data [facility] ABSTRACTION Provider, Abstract 11/09/2024 Telephone [facility] [address] [facility] [address] [place] [address] Francisco Javier Curry MD Missed Call 09/28/2024 External Device Data [facility] ABSTRACTION Provider, Abstract from Last 3 Months Family History Medical History Relation Name Comments No Known Problems Father Other Maternal Aunt 1 BRCA 1 Posit carolyn Other Maternal Aunt 2 BRCA 1 posit carolyn Breast Cancer Maternal Grandmother 55 Breast Cancer Maternal Uncle 37, BRCA pos itive No Known Problems Mother Arthritis-rheumatoid Sister and Sjo gren Colon Cancer Neg Hx Ovarian Cancer Neg Hx Relation Name Status Comments Father Alive Maternal Aunt 1 Maternal Aunt 2 Maternal Grandmother Maternal Uncle Mother Alive Sister Social History Tobacco Use Types Packs/Day Years Used Date Smoking Tobacco: Former Cigarettes Q uit: 10/09/1999 Smokeless Tobacco: Never Tobacco Cessation:Counseling Given: Not Answered Comments:quit sep 2018 Alcohol Use Standard Drinks/Week Comments Not Currently 0 (1 standard drink = 0.6 oz pur e alcohol) rarely Feeling Safe Answer Date Recorded Within the last year, have y ou been afraid of your partner or ex-partner? No 11/19/2019 Within the last year, have y ou been humiliated or emotionally abused in other ways by your partner or ex-partner? No Within the last year, have y ou been kicked, hit, slapped, or otherwise physically hurt by your partner or ex-partner? No 11/19/2019 Within the last year, have y ou been raped or forced to have any kind of sexual activity by your partner or ex-partner? No 11/19/2019 Social Connections Answer Date Recorded In a typical week, how many times do you talk on the phone with family, friends, or neighbors? More than three times a week 11/19/2019 How often do you get togethe r with friends or relatives? More than three times a week 11/19/2019 How often do you attend chur or alevism services? Never 11/19/2019 Do you belong to any clubs o r organizations such as mandaen groups, unions, fraternal or athletic groups, or school groups? No 11/19/2019 How often do you attend meet ings of the clubs or organizations you belong to? Never 11/19/2019 Are you , , di vorced, , never , or living with a partner? 11/19/2019 Financial Resource Strain Answer Date R ecorded How hard is it for you to pa y for the very basics like food, housing, medical care, and heating? Not very hard 11/19/2019 Food Insecurity Answer Date Recorded Within the past 12 months, y ou worried that your food would run out before you got the money to buy more. Never true 11/19/19 20 Within the past 12 months, t he food you bought just didn't last and you didn't have money to get more. Never true 11/19/2019 Transportation Needs Answer Date Record ed In the past 12 months, has l ack of transportation kept you from medical appointments or from getting medications? No 10/24 In the past 12 months, has l ack of transportation kept you from meetings, work, or from getting things needed for daily living? No 11/19/2019 Education Answer Date Recorded What is the highest level of school you have completed or the highest degree you have received? 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 Respiratory Rate 16 11/13/2022 10:20 AM EMANATIONS ANALYSIS TECHNICIAN Oxygen Saturation 100% 11/13/2022 10:20 AM EMANATIONS ANALYSIS TECHNICIAN Inhaled Oxygen Concentration - - Weight 125.2 kg (276 lb) 03/17/2023 3:56 PM CDT Height 167.6 cm (5' 6 ) 03/17/2023 3:56 PM CDT Body Mass Index 44.55 03/17/2023 3:56 PM CDT Plan of Treatment Health Maintenance Due Date Last Done Comments DTAP/TDAP/TD VACCINES (1 - Tdap) 1999 HEPATITIS B VACCINES (1 of 3 - 19+ 3-dose series) 1999 BREAST CANCER SCREENING 2020 05/24/20 15, 03/08/2010 INFLUENZA VACCINE (#1) 2024 9, 07/25/2017 CERVICAL CANCER SCREENING 06/02/2026 06/02/2023 HPV VACCINES Aged Out No longer eligi ble based on patient's age to complete this topic Medical Devices Implanted Type Area Powder Mixer Device Identifier Shelf Expiration Date Model / Serial / Lot Plate Clav Lcp 3.5mm Lt 083 - Sload Number [id number] Implanted:Qty: 1 on 09/16/2019 by Arie Price DO at [facility] Plate Left: Clavicle SYNTHES STRATEC 08 3S / LOAD NUMBER [id number] / STERILIZE D 9 Description:This Synthes natalie te only was processed on requisition [id number]. Screw St 3.5x12mm 204.812 - Sload Number [id number] Implanted:Qty: 3 on 09/16/2019 by Arie Price DO at [facility] Screw Left: Clavicle SYNTHES STRATEC 204.812 / LOAD NUMBER 205 / STERILIZE D 12/[id number] Screw St 3.5x14mm 204.814 - Sload Number [id number] Implanted:Qty: 1 on 09/16/2019 by Arie Price DO at [facility] Screw Left: Clavicle SYNTHES STRATEC 204.814 / LOAD NUMBER 205 / STERILIZE D 12/[id number] Screw St 3.5x16mm 204.816 - Sload Number [id number] Implanted:Qty: 1 on 09/16/2019 by Arie Price DO at [facility] Screw Left: Clavicle SYNTHES STRATEC 204.816 / LOAD NUMBER 205 / STERILIZE D 12/[id number] Screw St 3.5x20mm 204.820 - Sload Number 205 Implanted:Qty: 1 on 09/16/2019 by Arie Price DO at [facility] Screw Left: Clavicle SYNTHES STRATEC 204.820 / LOAD NUMBER 205 / STERILIZE D 12/[id number] Procedures Procedure Name Priority Date/Time Associated Diagnosis Comments MAMMO 3D MILTON DIAGNOSTIC BILAT W OR WO CAD Routine 05/24/2015 10:14 AM CDT Lump of breast, left Mass of right breast Family history of BRCA1 gene positive from Last 3 Months or Most Recently Relevant to Health Maintenance Results * MAMMO DIG DIAG BILAT W 3D MILTON (05/24/2015 10:14 AM CDT) Anatomical Region Laterality Modality Breast Bilateral Mammography 05/24/2015 10:0 3 AM CDT Narrative 05/25/2015 3:21 PM CDT DIAGNOSTIC MAMMOGRAM BILATERAL WITH CAD WITH 3D TOMOSYNTHESIS AND BILATERAL BREAST ULTRASOUND COMPLETE HISTORY: 2 maternal great grandmothers with breast cancer. Dr. Parson felt an area in the right breast. Patient sees discoloration and indentation of the skin on the left breast. Family history of BRCA1 positive TECHNIQUE: Diagnostic mammograms of both breasts were performed using full-field digital mammography. Low Dose full field Digital Breast tomosynthesis examination was performed with 2D and 3D acquisitions. Examination is read in conjunction with computer aided detection. Comparison is made with prior studies dated March 2010 BREAST COMPOSITION: Heterogeneously dense, which lowers the sensitivity of mammography. FINDINGS: A radiopaque skin marker is placed near the patient's area of clinical concern bilaterally. No mammographic abnormality is identified in these regions. No dominant masses, areas of asymmetry or suspicious clustered calcifications are identified within either breast. CAD was utilized. Bilateral breast ultrasound was performed. Scanning of the upper-outer, upper inner, lower inner, lower-outer and retroareolar regions of both breasts was performed. This reveals no solid or cystic lesions within either breast. Overall assessment: BI-RADS category 1. Negative. Recommendation: Clinical followup is recommended for patient's clinical symptoms which have no mammographic or ultrasound correlate. Dictated from [facility] Procedure Note Elizabeth Borrego MD - 05/25/2015 DIAGNOSTIC MAMMOGRAM BILATERAL WITH CAD WITH 3D TOMOSYNTHESIS AND BILATERAL BREAST ULTRASOUND COMPLETE HISTORY: 2 maternal great grandmothers with breast cancer. Dr. Parson felt an area in the right breast. Patient sees discoloration and indentation of the skin on the left breast. Family history of BRCA1 positive TECHNIQUE: Diagnostic mammograms of both breasts were performed using full-field digital mammography. Low Dose full field Digital Breast tomosynthesis examination was performed with 2D and 3D acquisitions. Examination is read in conjunction with computer aided detection. Comparison is made with prior studies dated March 2010 BREAST COMPOSITION: Heterogeneously dense, which lowers the sensitivity of mammography. FINDINGS: A radiopaque skin marker is placed near the patient's area of clinical concern bilaterally. No mammographic abnormality is identified in these regions. No dominant masses, areas of asymmetry or suspicious clustered calcifications are identified within either breast. CAD was utilized. Bilateral breast ultrasound was performed. Scanning of the upper-outer, upper inner, lower inner, lower-outer and retroareolar regions of both breasts was performed. This reveals no solid or cystic lesions within either breast. Overall assessment: BI-RADS category 1. Negative. Recommendation: Clinical followup is recommended for patient's clinical symptoms which have no mammographic or ultrasound correlate. Dictated from [facility] Hope Parson MD MAMMO ORDERABLES Final Result from Last 3 Months or Most Recently Relevant to Health Maintenance Insurance [employer] OPEN ACCESS [employer] OPEN [employer]ESS H[employer] Advance Directives For more information, please contact: [phone] * Full Code (Latest Code Status on File) Date Activated Date Inactivated Comments 11/13/2022 7:18 AM 11/13/2022 1:07 PM * Full Code Date Activated Date Inactivated Comments 02/18/2022 5:57 PM 02/21/2022 8:14 PM * Full Code Date Activated Date Inactivated Comments 09/16/2019 6:02 AM 09/16/2019 2:58 PM * Full Code Date Activated Date Inactivated Comments 05/19/2019 9:58 AM 05/19/2019 2:13 PM * Full Code Date Activated Date Inactivated Comments 04/16/2012 8:57 AM 04/16/2012 12:29 PM Care Teams Can Closing Machine Tender Relationship Specialty Start Date End Date Len Tran MD [address] [place] [id number] PCP - General 09/07/15
--- OUTSIDE RECORDS SUMMARY | 2024-11-29 15:43 | XMS_ITS | Referral Summary ---
Author Organization [facility] al Address [address] [place] [address] Care Team Providers Care Respiratory Supervisor Name Role Phone Len Tran MD Primary Care Provider [phone] Murphy Osorio MD Unavailable [phone] Eli Phillips NP Unavailable [phone] Barron Rico DO Unavailable [phone] Judie Starks Unavailable Brenda Loomis MD Unavailable Francisco Javier Curry MD Unavailable Unique Dupont MD Unavailable Adina Taylor DNP Unavailable [phone] Encounters Date Type Department Care Team Description 11/24/2024 Orders Only [facility] [address] [place] [phone] Judie Starks PA 11/24/2024 Telephone [facility] [address] [place] [phone] Sukhdev Diaz Script Error 11/12/2024 Telephone [facility] [address] [place] [phone] Sukhdev Diazira denied 11/09/2024 Results Follow-Up [facility] [address] [place] [phone] Murphy Osorio MD 11/08/2024 Telephone [facility] [address] [place] [phone] Judie Starks PA 11/08/2024 8:30 AM MANAGER TECHNOLOGY Office Visit [facility] [address] [place] [phone] Judie Starks PA 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) (Primary Dx); Encounter for long-term (current) use of medications; Nausea and vomiting, unspecified vomiting type 10/13/2024 6:02 PM MANAGER TECHNOLOGY - 10/13/2024 11:25 PM [facility] Emergency Department [address] [place] [address] Muna John MD Vomiting and diarrhea (Primary Dx); Anemia, unspecified type Discharge Disposition: Discharge to home or self care 10/05/2024 Orders Only [facility] [address]th [place] [address] Tracey Stovall MD Idiopathic intracranial hypertension (Primary Dx); 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; Papilledema 09/06/2024 Telephone [facility] Neuro Sleep [address] [facility] [address] [place] [address] Adina Taylor DNP 09/06/2024 Orders Only [facility] Neuro Sleep [address] [facility] 6[address] [place] [address] Adina Taylor DNP JENNIFER (obstructive sleep apnea) (Primary Dx) from Last 3 Months Allergies Active Allergy Reactions Criticality Noted Date Comments Cosyntropin Unknown 12/21/2017 Other reaction(s): Unknown Hymenoptera Allergenic Extract Swelling Medium 09/16/2019 Sulfasalazine Palpitations,Unknown Low 10/16/2012 Medications albuterol sulfate 90 mcg/actuation aerosol [facility] breath activated Inhale 2 puffs every 6 (six) hours as needed Active EPINEPHrine 0.3 mg/0.3 mL auto-injection syringe Inject 0.3 mL (0.3 mg total) into the muscle as instructed daily as needed Active ondansetron ODT (ZOFRAN-ODT) 4 mg disintegrating tablet Take 1 tablet (4 mg total) by mouth every 8 (eight) hours as needed 0 03/06/20 19 Active traMADol (ULTRAM) 50 mg tablet Take 1 tablet (50 mg total) by mouth every 6 (six) hours as needed prn 5 04/05/20 19 Active FLUoxetine (PROzac) 60 mg tablet Take 1 tablet (60 mg total) by mouth daily 12/02/19 21 Active methylphenidate CD (METADATE CD) 20 mg CR capsule Take 1 capsule (20 mg total) by mouth 2 (two) times a day Morning and 1pm 11/03/19 21 Active gabapentin (NEURONTIN) 300 mg capsule Take 1 capsule (300 mg total) by mouth 2 (two) times a day Active ARIPiprazole (ABILIFY) 5 mg tablet Take 1 tablet (5 mg total) by mouth every morning 03/14/20 22 Active gabapentin (NEURONTIN) 600 mg tablet Take 1 tablet (600 mg total) by mouth nightly at bedtime. 11/06/19 23 Active amitriptyline (ELAVIL) 100 mg tablet Take 1 tablet (100 mg total) by mouth daily 05/18/20 23 Active vibegron (Gemtesa) 75 mg tablet Take 75 mg by mouth daily Active FeroSuL 325 mg (65 mg iron) tablet TAKE 1 TABLET BY MOUTH EVERY DAY WITH BREAKFAST 90 tablet 08/17/20 24 Active meloxicam (MOBIC) 15 mg tablet TAKE 1 TABLET(15 MG) BY MOUTH DAILY 30 tablet 1 08/17/20 24 Active azaTHIOprine (IMURAN) 50 mg tablet Take 2 tablets (100 mg total) by mouth daily 100 mg daily, 50 mg nightly Active azaTHIOprine (IMURAN) 50 mg tablet Take 1 tablet (50 mg total) by mouth nightly Active topiramate (TOPAMAX) 25 mg tablet Take 1 tablet (25 mg total) by mouth daily Active pantoprazole DR (PROTONIX) 40 mg EC tablet Take 1 tablet (40 mg total) by mouth daily Active adalimumab-adaz 40 mg/0.4 mL pen injector Inject 40 mg under the skin every 7 days 1.6 mL 2 11/25/19 25 Active adalimumab (HUMIRA, CF, SYRINGE) 40 mg/0.4 mL syringe kit Inject 0.4 mL (40 mg total) under the skin every 7 days 025 Discontin ued(Dupli baylee order) adalimumab-adaz 40 mg/0.4 mL pen injector Inject 40 mg under the skin every 14 (fourteen) days 2 mL 3 11/17/19 25 025 Discontin ued(Dupli baylee order) Active Problems Problem Noted Date Diagnosed Date Nausea and vomiting 11/08/2024 Assessment & Plan (11/08/2024 9:00 AM MANAGER TECHNOLOGY): Advised pt to contact her gi and let him know about her symptoms. Sees pcp for this also. Check amylase and lipase. Hold imuran rt now. Severe obstructive sleep apnea 09/01/2024 Acute left-sided low back pain with left-sided s ciatica 04/14/2024 Assessment & Plan (04/14/2024 4:54 PM CDT): Lbp radiating to lt lower leg down to foot with occ nt time involuntary loss of control of urine. Has had previous disc herniation repair. Will check lumbar mri. Start PT. If this is worse to er. Start meloxicam 15 mg po every day with food. Other fatigue 04/14/2024 Class 3 severe obesity due t o excess calories with serious comorbidity and body mass index (BMI) of 40.0 to 44.9 in adult 05/23/2023 Acute right-sided low back pain with right-sided sciatica 05/22/2023 Assessment & Plan (06/20/2023 4:28 PM CDT): Has hx of l4-l5 herniation and had back surgeyr 2019, today symptoms appear to be more from L5-S1. Has not started PT, advised her to start it. Will continue meloxicam 15 mg po and refer her for a lumbar mri wo contrast. Lumbar xray 06/19/2023: Five nonrib-bearing lumbar vertebrae are seen. Anterior fusion hardware is again noted extending from L4 to L5 and L5-S1 with spacers seen at those levels. Bony alignment is maintained and shows no subluxation. No anterior wedge compression deformities or fractures are evident. No pars defects are noted. A T-shaped IUD is present in the pelvis. every Assessment & Plan (05/22/2023 4:23 PM CDT): Has hx of l4-l5 herniation and had back surgeyr 2019, today symptoms appear to be more from L5-S1. Will start PT, check lumbar xray, start meloxicam 15 mg po every day and f/u in 1 month to re-evaluate. If symptoms do not improve will get lumbar mri next. Rash 05/22/2023 Assessment & Plan (05/22/2023 4:24 PM CDT): Scaly rash on bilat heels, will refer to dr patino to r/o psoriasis . Vitamin D deficiency 05/01/2023 Acute pain of left knee 03/05/2023 Assessment & Plan (03/05/2023 2:04 PM CDT): Onset about 7 days ago after wearing different shoes to work. Improvement of pain and swelling the past 2 days. TTP over medial joint line suggesting meniscal tear. Pain appears mechanical so will start with PT. Previous XR was unremarkable. If no benefit with PT, then get MRI L knee. Recommend topical analgesics like voltaren or biofreeze, otc ibuprofen and tylenol arthritis, and alternating ice/heat. F/u at next scheduled visit. Daytime sleepiness 11/19/2022 Low back pain at multiple sites 11/04/2022 Assessment & Plan (11/04/2022 5:31 PM MANAGER TECHNOLOGY): Start PT. Osteoarthritis of both knees 11/04/2022 Assessment & Plan (11/04/2022 5:32 PM MANAGER TECHNOLOGY): Check bilat knee xrays. Start PT. Discussed trying bilat knee steroid inj under US if PT does not help and xrays show OA changes. Idiopathic intracranial hypertension 11/04/2022 Overview (02/28/2023): Establishing Diagnosis of Idiopathic Intracranial Hypertension (IIH): - Symptoms of positional headaches, pulsatile tinnitus, and binocular diplopia. - Papilledema noted 09/17/2022. - Potential Triggers: BMI >40. Reported slow weight gain over several years. History of rekha deficiency anemia. Pertinent negatives: no exposure to vitamin A derivatives or tetracycline antibiotics. - Neuroimaging: MRI brain w/wo contrast was normal other than radiographic signs of intracranial hypertension (empty sella, trace posterior globe flattening and optic nerve sheath tortuosity OU) (09/25/2022). 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 - LP OP 28 cm H2O. Position not documented, but presumably prone (fluoroscopically-guided). CSF contents bland (11/04/2022). Disease Monitoring/ Course/ Intervention Hx: - Peak papilledema was Frisen grade 1 OU, OCT RNFL 164 microns OD, 184 microns OS on 10/22/2022. - Ganglion cell complex has remained normal OU (indicating that there is no optic nerve damage). Iron deficiency anemia 08/26/2022 Assessment & Plan (09/30/2022 7:47 AM MANAGER TECHNOLOGY): H/H 9.6-31.1. Her ferritin and iron are low, haptoglobin elevated and soluble transferrin is elevated. She was advised to discuss this with pcp, she might need to see heme or pcp for iron infusion. Diet is poor and does not eat much meat. Discussed ways to improve diet, increase iron rich foods. She has started on oral iron. Assessment & Plan (08/26/2022 1:50 PM MANAGER TECHNOLOGY): H/H 9.6-31.1 Will check anemia panel. Has no menses (has IUD) and denies blood in stool. Diet is poor and does not eat much meat. Discussed ways to improve diet, increase iron rich foods. 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 Moderate synovial thickening in the 2nd and 3rd PIP joints. No significant joint effusions appreciated on US examination. Assessment & Plan (11/08/2024 8:56 AM MANAGER TECHNOLOGY): Low cdai. Greatly improved since we changed to weekly humira, will continue it. She has not been taking her azathioprine since she has been dealing with cyclical vomiting. Her pcp is addressing this but will check amylase and lipase today also. States that her nausea and vomiting is related to stress at her work. Her Crohn's disease is still in remission. Seen with Dr. Osorio today. Continue humira and once nausea/vomiting resolves we can restart her azathioprine if her joints worsen. She also has a + anti cardiolipin IgG but no hx of clots, she has stopped smoking 3 yrs ago and is on IUD (progesterone) not estrogen contraception. Will observe. In past she failed remicade, cimzia. Her TPMT was normal. Serologies and imaging: [facility] 07/2022:Anti thyroglobulin. Anti cardiolipin IgG Cxr 08/21---clear lungs but 9cm hiatal hernia suspected. Mild sclerotic change rt SI joint. Small lt heel bone spur. Normal bilat hand and bilat knee xrays. US right hand/wrist (09/13/22): Moderate synovial thickening in the 4th MCP and 2nd and 3rd PIP joints. Grade 2 power Doppler in the radial/scaphoid joint and ulnar styloid. Grade 1 power Doppler in the wrist. Assessment & Plan (04/14/2024 9:04 AM CDT): Low cdai. Greatly improved since we changed to weekly humira, will continue it. If she continues to flare up in futre we can increase her imuran from 150mg every day to 200mg every day (100mg bid) or even add plauquenil next. Her Crohn's disease is under control. She also symptoms of a CTD/SLE (dry eyes, dry mouth, hair thinning, pleurisy, nose and gu ulcers) but no serologies for this. 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 She also has a + anti cardiolipin IgG but no hx of clots, she has stopped smoking 3 yrs ago and is on IUD (progesterone) not estrogen contraception. Will observe. In past she failed remicade, cimzia. Her TPMT was normal. Serologies and imaging: [facility] 07/2022:Anti thyroglobulin. Anti cardiolipin IgG Cxr 08/21---clear lungs but 9cm hiatal hernia suspected. Mild sclerotic change rt SI joint. Small lt heel bone spur. Normal bilat hand and bilat knee xrays. US right hand/wrist (09/13/22): Moderate synovial thickening in the 4th MCP and 2nd and 3rd PIP joints. Grade 2 power Doppler in the radial/scaphoid joint and ulnar styloid. Grade 1 power Doppler in the wrist. Assessment & Plan (01/15/2024 9:56 AM CDT): Low cdai. Greatly improved since we changed to weekly humira, will continue it. If she continues to flare up in futre we can increase her imuran from 150mg every day to 200mg every day (100mg bid) or even add plauquenil next. Her Crohn's disease is under control. She also symptoms of a CTD/SLE (dry eyes, dry mouth, hair thinning, pleurisy, nose and gu ulcers) but no serologies for this. 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 She also has a + anti cardiolipin IgG but no hx of clots, she has stopped smoking 3 yrs ago and is on IUD (progesterone) not estrogen contraception. Will observe. In past she failed remicade, cimzia. Her TPMT was normal. Serologies and imaging: [facility] 07/2022:Anti thyroglobulin. Anti cardiolipin IgG Cxr 08/21---clear lungs but 9cm hiatal hernia suspected. Mild sclerotic change rt SI joint. Small lt heel bone spur. Normal bilat hand and bilat knee xrays. US right hand/wrist (09/13/22): Moderate synovial thickening in the 4th MCP and 2nd and 3rd PIP joints. Grade 2 power Doppler in the radial/scaphoid joint and ulnar styloid. Grade 1 power Doppler in the wrist. Assessment & Plan (10/16/2023 10:13 AM MANAGER TECHNOLOGY): Mod cdai. Having more joint pain since last visit, will see if insurance will approve humira weekly. Today she was given 2 boxes of humira to use one injection weekly. She was informed of increased risk of infection with humira weekly. F/u in 1 month to re-evaluate. If she continues to flare up in [facility] we can increase her imuran from 150mg every day to 200mg every day (100mg bid) or even add plauquenil next. Her Crohn's disease is under control. Repeat rt hand US. She also symptoms of a CTD/SLE (dry eyes, dry mouth, hair thinning, pleurisy, nose and gu ulcers) but no serologies for this. 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 She also has a + anti cardiolipin IgG but no hx of clots, she has stopped smoking 3 yrs ago and is on IUD (progesterone) not estrogen contraception. Will observe. In past she failed remicade, cimzia. Her TPMT was normal. Serologies and imaging: [facility] 07/2022:Anti thyroglobulin. Anti cardiolipin IgG Cxr 08/21---clear lungs but 9cm hiatal hernia suspected. Mild sclerotic change rt SI joint. Small lt heel bone spur. Normal bilat hand and bilat knee xrays. US right hand/wrist (09/13/22): Moderate synovial thickening in the 4th MCP and 2nd and 3rd PIP joints. Grade 2 power Doppler in the radial/scaphoid joint and ulnar styloid. Grade 1 power Doppler in the wrist. Assessment & Plan (08/01/2023 8:40 AM MANAGER TECHNOLOGY): Low cdai. Not worse since last visit. Has improved on humira and imuran. If she flares up in [facility] we can increase her imuran from 150mg every day to 200mg every day (100mg bid). Continue humira. Her Crohn's disease is under control. She also symptoms of a CTD/SLE (dry eyes, dry mouth, hair thinning, pleurisy, nose and gu ulcers) but no serologies for this. 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 She also has a + anti cardiolipin IgG but no hx of clots, she has stopped smoking 3 yrs ago and is on IUD (progesterone) not estrogen contraception. Will observe. In past she failed remicade, cimzia and and stopped humira due to pain with injection. Her TPMT was normal. Serologies and imaging: [facility] 07/2022:Anti thyroglobulin. Anti cardiolipin IgG Cxr 08/21---clear lungs but 9cm hiatal hernia suspected. Mild sclerotic change rt SI joint. Small lt heel bone spur. Normal bilat hand and bilat knee xrays. US right hand/wrist (09/13/22): Moderate synovial thickening in the 4th MCP and 2nd and 3rd PIP joints. Grade 2 power Doppler in the radial/scaphoid joint and ulnar styloid. Grade 1 power Doppler in the wrist. Assessment & Plan (06/20/2023 4:29 PM CDT): Low cdai. Not worse since last visit. Has improved on humira and imuran. If she flares up in futre we can increase her imuran from 150mg every day to 200mg every day (100mg bid). Continue humira. Her Crohn's disease is under control. She also symptoms of a CTD/SLE (dry eyes, dry mouth, hair thinning, pleurisy, nose and gu ulcers) but no serologies for this. 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 She also has a + anti cardiolipin IgG but no hx of clots, she has stopped smoking 3 yrs ago and is on IUD (progesterone) not estrogen contraception. Will observe. In past she failed remicade, cimzia and and stopped humira due to pain with injection. Her TPMT was normal. Serologies and imaging: [facility] 07/2022:Anti thyroglobulin. Anti cardiolipin IgG Cxr 08/21---clear lungs but 9cm hiatal hernia suspected. Mild sclerotic change rt SI joint. Small lt heel bone spur. Normal bilat hand and bilat knee xrays. US right hand/wrist (09/13/22): Moderate synovial thickening in the 4th MCP and 2nd and 3rd PIP joints. Grade 2 power Doppler in the radial/scaphoid joint and ulnar styloid. Grade 1 power Doppler in the wrist. Assessment & Plan (05/22/2023 2:35 PM CDT): Low cdai. Has improved on humira and imuran. If she flares up in futre we can increase her imuran from 150mg every day to 200mg every day (100mg bid). Continue humira. Her Crohn's disease is under control. She also symptoms of a CTD/SLE (dry eyes, dry mouth, hair thinning, pleurisy, nose and gu ulcers) but no serologies for this. 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 She also has a + anti cardiolipin IgG but no hx of clots, she has stopped smoking 3 yrs ago and is on IUD (progesterone) not estrogen contraception. Will observe. In past she failed remicade, cimzia and and stopped humira due to pain with injection. Her TPMT was normal. Serologies and imaging: [facility] 07/2022:Anti thyroglobulin. Anti cardiolipin IgG Cxr 08/21---clear lungs but 9cm hiatal hernia suspected. Mild sclerotic change rt SI joint. Small lt heel bone spur. Normal bilat hand and bilat knee xrays. US right hand/wrist (09/13/22): Moderate synovial thickening in the 4th MCP and 2nd and 3rd PIP joints. Grade 2 power Doppler in the radial/scaphoid joint and ulnar styloid. Grade 1 power Doppler in the wrist. Assessment & Plan (05/01/2023 3:57 PM CDT): Low cdai. Has improved on humira and imuran. If she flares up in futre we can increase her imuran from 150mg every day to 200mg every day (100mg bid). Continue humira. Her Crohn's disease is under control. She also symptoms of a CTD/SLE (dry eyes, dry mouth, hair thinning, pleurisy, nose and gu ulcers) but no serologies for this. 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 She also has a + anti cardiolipin IgG but no hx of clots, she has stopped smoking 3 yrs ago and is on IUD (progesterone) not estrogen contraception. Will observe. In past she failed remicade, cimzia and and stopped humira due to pain with injection. Her TPMT was normal. Serologies and imaging: [facility] 07/2022:Anti thyroglobulin. Anti cardiolipin IgG Cxr 08/21---clear lungs but 9cm hiatal hernia suspected. Mild sclerotic change rt SI joint. Small lt heel bone spur. Normal bilat hand and bilat knee xrays. US right hand/wrist (09/13/22): Moderate synovial thickening in the 4th MCP and 2nd and 3rd PIP joints. Grade 2 power Doppler in the radial/scaphoid joint and ulnar styloid. Grade 1 power Doppler in the wrist. Assessment & Plan (03/05/2023 2:01 PM CDT): Stable with humira. On flares. No obvious synovitis or tenderness noted on peripheral exam today. Continue Humira and AZA. Suspect left knee pain is mechanical and will do PT. Assessment & Plan (02/13/2023 5:01 PM CDT): Mod cdai. Had bronchitis 10 d ago and flared up since. Due to burden of disease will give her 100 mg of triamcinolone IM today, discussed risks and se of systemic steroids, she is to watch carbs in diet for the next 2 weeks. She has no hx of DM2. If she does not improve we can increase her imuran from 150mg every day to 200mg every day (100mg bid). To let us know if she does not improve in 2 weeks, otherwise f/u in 3 months and PRN. Continue humira. Her Crohn's disease is under control. She also symptoms of a CTD/SLE (dry eyes, dry mouth, hair thinning, pleurisy, nose and gu ulcers) but no serologies for this. 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 She also has a + anti cardiolipin IgG but no hx of clots, she has stopped smoking 3 yrs ago and is on IUD (progesterone) not estrogen contraception. Will observe. In past she failed remicade, cimzia and and stopped humira due to pain with injection. Her TPMT was normal. Serologies and imaging: [facility] 07/2022:Anti thyroglobulin. Anti cardiolipin IgG Cxr 08/21---clear lungs but 9cm hiatal hernia suspected. Mild sclerotic change rt SI joint. Small lt heel bone spur. Normal bilat hand and bilat knee xrays. US right hand/wrist (09/13/22): Moderate synovial thickening in the 4th MCP and 2nd and 3rd PIP joints. Grade 2 power Doppler in the radial/scaphoid joint and ulnar styloid. Grade 1 power Doppler in the wrist. Assessment & Plan (01/09/2023 3:12 PM CDT): Low cdai but flared up recently. Today she is on 60mg every day of prednisone which most likely improved her joints and made CDAI score lower. Seen with Dr. Osorio. Increase imuran to 100mg in am and 50mg pm. F/u in 1 month to recheck las. Continue humira, only had 3 injections so far, we have to give it longer to work. Her Crohn's disease is under control. She also symptoms of a CTD/SLE (dry eyes, dry mouth, hair thinning, pleurisy, nose and gu ulcers) but no serologies for this. 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 She also has a + anti cardiolipin IgG but no hx of clots, she has stopped smoking 3 yrs ago and is on IUD (progesterone) not estrogen contraception. Will observe. In past she failed remicade, cimzia and and stopped humira due to pain with injection. Her TPMT was normal. Serologies and imaging: [facility] 07/2022:Anti thyroglobulin. Anti cardiolipin IgG Cxr 08/21---clear lungs but 9cm hiatal hernia suspected. Mild sclerotic change rt SI joint. Small lt heel bone spur. Normal bilat hand and bilat knee xrays. US right hand/wrist (09/13/22): Moderate synovial thickening in the 4th MCP and 2nd and 3rd PIP joints. Grade 2 power Doppler in the radial/scaphoid joint and ulnar styloid. Grade 1 power Doppler in the wrist. Assessment & Plan (11/04/2022 5:30 PM MANAGER TECHNOLOGY): High cdai. Failing stelara. Will stop it and change to humira. It does not have preservative anymore and should not be painful for her. seen with dr osorio. Tolerating imuran 50mg bid. She also symptoms of a CTD/SLE (dry eyes, dry mouth, hair thinning, pleurisy, nose and gu ulcers) but no serologies for this. 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 She also has a + anti cardiolipin IgG but no hx of clots, she has stopped smoking 3 yrs ago and is on IUD (progesterone) not estrogen contraception. Will observe. In past she failed remicade, cimzia and and stopped humira due to pain with injection. Her TPMT was normal. Serologies and imaging: [facility] 07/2022:Anti thyroglobulin. Anti cardiolipin IgG Cxr 08/21---clear lungs but 9cm hiatal hernia suspected. Mild sclerotic change rt SI joint. Small lt heel bone spur. Normal bilat hand and bilat knee xrays. US right hand/wrist (09/13/22): Moderate synovial thickening in the 4th MCP and 2nd and 3rd PIP joints. Grade 2 power Doppler in the radial/scaphoid joint and ulnar styloid. Grade 1 power Doppler in the wrist. Assessment & Plan (09/30/2022 9:47 AM MANAGER TECHNOLOGY): Moderate CDAI. Tolerating imuran 50mg po every day. Increase it to 50mg bid, chck cbc/cmp in 2 weeks and f/u in 1 month. She also symptoms of a CTD/SLE (dry eyes, dry mouth, hair thinning, pleurisy, nose and gu ulcers) but no serologies for this. 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 She also has a + anti cardiolipin IgG but no hx of clots, she has stopped smoking 3 yrs ago and is on IUD (progesterone) not estrogen contraception. Will observe. In past she failed remicade, cimzia and humira. Continue Stelara. Her TPMT was normal. Serologies and imaging: [facility] 07/2022:Anti thyroglobulin. Anti cardiolipin IgG Cxr 08/21---clear lungs but 9cm hiatal hernia suspected. Mild sclerotic change rt SI joint. Small lt heel bone spur. Normal bilat hand and bilat knee xrays. US right hand/wrist (09/13/22): Moderate synovial thickening in the 4th MCP and 2nd and 3rd PIP joints. Grade 2 power Doppler in the radial/scaphoid joint and ulnar styloid. Grade 1 power Doppler in the wrist. Assessment & Plan (08/26/2022 3:07 PM MANAGER TECHNOLOGY): Low moderate CDAI today. Has previous diagnosis of RA but her symptoms and serologies are more compatible with an enteropathic arthritis associated with Crohn's disease. She also symptoms of a CTD/SLE (dry eyes, dry mouth, hair thinning, pleurisy, nose and gu ulcers) but no serologies for this. 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 She also has a + anti cardiolipin IgG but no hx of clots, she has stopped smoking 3 yrs ago and is on IUD (progesterone) not estrogen contraception. Will observe. Seen with Dr. Osorio. In past she failed remicade, cimzia and humira. Will consider adding imuran to her present Stelara. She used to be on it when she was younger and tolerated it. Her TPMT was normal. Start 50mg po every day, check cbc/cmp in 2 weeks and f/u in 1 month. Discussed potential se including pancreatitis, bone marrow suppression, fever/chills/malaise, diarrhea, low wbc. Serologies and imaging: [facility] 07/2022:Anti thyroglobulin. Anti cardiolipin IgG Cxr 08/21---clear lungs but 9cm hiatal hernia suspected. Mild sclerotic change rt SI joint. Small lt heel bone spur. Normal bilat hand and bilat knee xrays. US right hand/wrist (09/13/22): Moderate synovial thickening in the 4th MCP and 2nd and 3rd PIP joints. Grade 2 power Doppler in the radial/scaphoid joint and ulnar styloid. Grade 1 power Doppler in the wrist. Assessment & Plan (08/12/2022 12:49 PM MANAGER TECHNOLOGY): Low moderate CDAI. Has previous hx of RA but most likely she has an enteropathic arthritis associated with Crohn's disease. She also symptoms of a CTD/SLE (dry eyes, dry mouth, hair thinning, pleurisy, nose and gu ulcers). Will check HLA B51 for possible Behcet's. Previously negative for HLA B27. Check serologies, xrays and rt hand US and re-evaluate in [address] Osorio today. 1 h spent with pt between Dr. Osorio and myself. In pas tshe failed remicade, cimzia and humira. Will consider adding imuran to her present Stelara. Encounter for long-term (current) use of medicat ions 08/12/2022 Assessment & Plan (11/08/2024 7:25 AM MANAGER TECHNOLOGY): HLA B27 neg 11/2020 HLA B51 negative 07/2022 Heb B negative 07/2022 Hep C Ab + but confirmatory Heb C RNA PCR negative 07/2022 [facility] 07/2022:Anti thyroglobulin. Anti cardiolipin IgG Quant gold neg 07/2022 TPTM wnl 16 on 07/2022 Cxr 08/21---clear lungs but 9cm hiatal hernia suspected. In past she failed remicade, cimzia and and stopped humira due to pain with injection but can now tolerate it since it is preservative free. Failed stelara, stopped 11/04/2022. Assessment & Plan (04/14/2024 9:04 AM CDT): HLA B27 neg 11/2020 HLA B51 negative 07/2022 Heb B negative 07/2022 Hep C Ab + but confirmatory Heb C RNA PCR negative 07/2022 [facility] 07/2022:Anti thyroglobulin. Anti cardiolipin IgG Quant gold neg 07/2022 TPTM wnl 16 on 07/2022 Cxr 08/21---clear lungs but 9cm hiatal hernia suspected. In past she failed remicade, cimzia and and stopped humira due to pain with injection but can now tolerate it since it is preservative free. Failed stelara, stopped 11/04/2022. Assessment & Plan (01/15/2024 7:31 AM CDT): HLA B27 neg 11/2020 HLA B51 negative 07/2022 Heb B negative 07/2022 Hep C Ab + but confirmatory Heb C RNA PCR negative 07/2022 [facility] 07/2022:Anti thyroglobulin. Anti cardiolipin IgG Quant gold neg 07/2022 TPTM wnl 16 on 07/2022 Cxr 08/21---clear lungs but 9cm hiatal hernia suspected. In past she failed remicade, cimzia and and stopped humira due to pain with injection but can now tolerate it since it is preservative free. Failed stelara, stopped 11/04/2022. Assessment & Plan (10/16/2023 10:14 AM MANAGER TECHNOLOGY): HLA B27 neg 11/2020 HLA B51 negative 07/2022 Heb B negative 07/2022 Hep C Ab + but confirmatory Heb C RNA PCR negative 07/2022 [facility] 07/2022:Anti thyroglobulin. Anti cardiolipin IgG Quant gold neg 07/2022 TPTM wnl 16 on 07/2022 Cxr 08/21---clear lungs but 9cm hiatal hernia suspected. In past she failed remicade, cimzia and and stopped humira due to pain with injection but can now tolerate it since it is preservative free. Failed stelara, stopped 11/04/2022. Assessment & Plan (08/01/2023 8:40 AM MANAGER TECHNOLOGY): HLA B27 neg 11/2020 HLA B51 negative 07/2022 Heb B negative 07/2022 Hep C Ab + but confirmatory Heb C RNA PCR negative 07/2022 [facility] 07/2022:Anti thyroglobulin. Anti cardiolipin IgG Quant gold neg 07/2022 TPTM wnl 16 on 07/2022 Cxr 08/21---clear lungs but 9cm hiatal hernia suspected. In past she failed remicade, cimzia and and stopped humira due to pain with injection. Failed stelara, stopped 11/04/2022. Assessment & Plan (06/20/2023 8:59 AM CDT): HLA B27 neg 11/2020 HLA B51 negative 07/2022 Heb B negative 07/2022 Hep C Ab + but confirmatory Heb C RNA PCR negative 07/2022 [facility] 07/2022:Anti thyroglobulin. Anti cardiolipin IgG Quant gold neg 07/2022 TPTM wnl 16 on 07/2022 Cxr 08/21---clear lungs but 9cm hiatal hernia suspected. In past she failed remicade, cimzia and and stopped humira due to pain with injection. Failed stelara, stopped 11/04/2022. Assessment & Plan (05/22/2023 2:35 PM CDT): HLA B27 neg 11/2020 HLA B51 negative 07/2022 Heb B negative 07/2022 Hep C Ab + but confirmatory Heb C RNA PCR negative 07/2022 [facility] 07/2022:Anti thyroglobulin. Anti cardiolipin IgG Quant gold neg 07/2022 TPTM wnl 16 on 07/2022 Cxr 08/21---clear lungs but 9cm hiatal hernia suspected. In past she failed remicade, cimzia and and stopped humira due to pain with injection. Failed stelara, stopped 11/04/2022. Assessment & Plan (05/01/2023 8:20 AM CDT): HLA B27 neg 11/2020 HLA B51 negative 07/2022 Heb B negative 07/2022 Hep C Ab + but confirmatory Heb C RNA PCR negative 07/2022 [facility] 07/2022:Anti thyroglobulin. Anti cardiolipin IgG Quant gold neg 07/2022 TPTM wnl 16 on 07/2022 Cxr 08/21---clear lungs but 9cm hiatal hernia suspected. In past she failed remicade, cimzia and and stopped humira due to pain with injection. Failed stelara, stopped 11/04/2022. Assessment & Plan (03/05/2023 1:31 PM CDT): HLA B27 neg 11/2020 HLA B51 negative 07/2022 Heb B negative 07/2022 Hep C Ab + but confirmatory Heb C RNA PCR negative 07/2022 [facility] 07/2022:Anti thyroglobulin. Anti cardiolipin IgG Quant gold neg 07/2022 TPTM wnl 16 on 07/2022 Cxr 08/21---clear lungs but 9cm hiatal hernia suspected. In past she failed remicade, cimzia and and stopped humira due to pain with injection. Failed stelara, stopped 11/04/2022. Assessment & Plan (02/13/2023 2:46 PM CDT): HLA B27 neg 11/2020 HLA B51 negative 07/2022 Heb B negative 07/2022 Hep C Ab + but confirmatory Heb C RNA PCR negative 07/2022 [facility] 07/2022:Anti thyroglobulin. Anti cardiolipin IgG Quant gold neg 07/2022 TPTM wnl 16 on 07/2022 Cxr 08/21---clear lungs but 9cm hiatal hernia suspected. In past she failed remicade, cimzia and and stopped humira due to pain with injection. Failed stelara, stopped 11/04/2022. Assessment & Plan (01/09/2023 2:53 PM CDT): HLA B27 neg 11/2020 HLA B51 negative 07/2022 Heb B negative 07/2022 Hep C Ab + but confirmatory Heb C RNA PCR negative 07/2022 [facility] 07/2022:Anti thyroglobulin. Anti cardiolipin IgG Quant gold neg 07/2022 TPTM wnl 16 on 07/2022 Cxr 08/21---clear lungs but 9cm hiatal hernia suspected. In past she failed remicade, cimzia and and stopped humira due to pain with injection. Failed stelara, stopped 11/04/2022. Assessment & Plan (11/04/2022 5:30 PM MANAGER TECHNOLOGY): HLA B27 neg 11/2020 HLA B51 negative 07/2022 Heb B negative 07/2022 Hep C Ab + but confirmatory Heb C RNA PCR negative 07/2022 [facility] 07/2022:Anti thyroglobulin. Anti cardiolipin IgG Quant gold neg 07/2022 TPTM wnl 16 on 07/2022 Cxr 08/21---clear lungs but 9cm hiatal hernia suspected. In past she failed remicade, cimzia and and stopped humira due to pain with injection. Failed stelara, stopped 11/04/2022. Assessment & Plan (09/30/2022 7:53 AM MANAGER TECHNOLOGY): HLA B27 neg 11/2020 HLA B51 negative 07/2022 Heb B negative 07/2022 Hep C Ab + but confirmatory Heb C RNA PCR negative 07/2022 [facility] 07/2022:Anti thyroglobulin. Anti cardiolipin IgG Quant gold neg 07/2022 TPTM wnl 16 on 07/2022 Cxr 08/21---clear lungs but 9cm hiatal hernia suspected. Assessment & Plan (08/26/2022 10:08 AM MANAGER TECHNOLOGY): HLA B27 neg 11/2020 HLA B51 negative 07/2022 Heb B negative 07/2022 Hep C Ab + but confirmatory Heb C RNA PCR negative 07/2022 [facility] 07/2022:Anti thyroglobulin. Anti cardiolipin IgG Quant gold neg 07/2022 TPTM wnl 16 on 07/2022 Cxr 08/21---clear lungs but 9cm hiatal hernia suspected. Assessment & Plan (08/12/2022 8:18 AM MANAGER TECHNOLOGY): HLA B27 neg 11/2020 Crohn's disease with complication 08/12/2022 Assessment & Plan (04/14/2024 9:04 AM CDT): Her Crohn's disease is under control. Assessment & Plan (06/20/2023 8:59 AM CDT): Her Crohn's disease is under control. Assessment & Plan (05/22/2023 2:35 PM CDT): Her Crohn's disease is under control. Assessment & Plan (05/01/2023 8:21 AM CDT): Her Crohn's disease is under control. Assessment & Plan (03/05/2023 2:01 PM CDT): Stable with Humira. Assessment & Plan (02/13/2023 8:32 AM CDT): Her Crohn's disease is under control. Assessment & Plan (01/09/2023 3:12 PM CDT): Her Crohn's disease is under control. Assessment & Plan (08/26/2022 9:53 AM MANAGER TECHNOLOGY): Seekrystian jama on Stelara. Assessment & Plan (08/12/2022 12:49 PM MANAGER TECHNOLOGY): Gt jama on Stelara. Intranasal ulcers 08/12/2022 Assessment & Plan (08/12/2022 12:50 PM MANAGER TECHNOLOGY): Check serologies. Chronic pain of both knees 08/12/2022 Assessment & Plan (09/30/2022 7:43 AM MANAGER TECHNOLOGY): Normal bilat knee xrays. If symptoms worse will start PT and consider MRI. Assessment & Plan (08/26/2022 1:54 PM MANAGER TECHNOLOGY): Normal bilat knee xrays. If symptoms worse will start PT and consider MRI. Assessment & Plan (08/12/2022 12:50 PM MANAGER TECHNOLOGY): Check bilat knee Xrays. Arthritis 04/02/2022 Overview (04/02/2022): Secondary to Crohn's Marijuana use 04/02/2022 Hypokalemia 02/18/2022 Intractable nausea and vomiting 02/18/2022 Leukocytosis (leucocytosis) 02/18/2022 Moderate episode of recurrent major depressive d isorder 02/17/2020 Spinal instabilities, lumbar region 12/22/2018 Overview (12/22/2018): Added automatically from request for surgery [id number] Assessment & Plan (09/30/2019 11:12 AM MANAGER TECHNOLOGY): Assessment Healing fusion L4-5 and L5-S1 Plan Observation. It appears fused radiographically and she is stable. She is to call or come back as needed Assessment & Plan (06/23/2019 11:10 AM CDT): Healing anterior lumbar interbody fusion L4-5 and L5-S1 on February 01, 2019 Recommended treatment as follow-up in September for final x-rays hopefully. She is to continue to monitor symptoms and is to call us if she has any difficulty in the meantime. I feel that some of her healing status is due to her Crohn's and her rheumatoid arthritis and the medication is that she has to be on. I would hope by September her x-rays would be well healed enough that we would not need regular follow-up. I offered physical therapy but she declined at this point. Spinal instabilities, lumbosacral region 019 Overview (12/22/2018): Added automatically from request for surgery [id number] Assessment & Plan (04/21/2019 11:34 AM CDT): Recommended treatment is for the patient follow-up in 8 weeks for re-evaluation and hopefully final x-ray. I am checking her vitamin-D level I will call her with regard to the results. She is to continue her postoperative restrictions and at the next visit we will determine whether not she is ready to start yoga and other exercise activities. Assessment & Plan (03/03/2019 10:52 AM CDT): Assessment Healing fusion L4-S1 Plan I talked her about do's and don'ts. She is to return in 2 months for an x-ray Assessment & Plan (01/13/2019 9:36 AM CDT): Assessment Segmental instability L4-5 and L5-S1 with disc protrusion L4-5 and L5-S1. Failed conservative treatment. Plan anterior retroperitoneal approach diskectomy and fusion at L4-5 and L5-S1. I went over the procedure with her and her mother present outlining risks nature and expectation using anatomical models. They understand and wish to proceed Herniated nucleus pulposus, L4-5 12/22/2018 Overview (12/22/2018): Added automatically from request for surgery [id number] Herniated nucleus pulposus, L5-S1 12/22/2018 Overview (12/22/2018): Added automatically from request for surgery [id number] Former smoker 11/18/2018 Other intervertebral disc displacement, lumbar r egion 11/18/2018 Assessment & Plan (11/18/2018 9:58 AM MANAGER TECHNOLOGY): Assessment Segmental instability L4-5 L5-S1 central disc protrusion L5-S1 and larger protrusion L4-5 failed conservative treatment of several years duration Plan She is to undergo an anterior retroperitoneal approach diskectomy and fusion to remove the disc protrusion and deal with her segmental instability on no procedure with her in detail outlined the risks nature and expectations 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 so she is going to return in the spring to plan surgery Rheumatoid arthritis involving multiple sites Mixed anxiety and depressive disorder 11/02/2018 Depression 03/06/2010 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 Resolved Problems Problem Noted Date Diagnosed Date Resolved Date Tobacco use disorder 04/22/2018 019 Immunizations Immunization Administration Dates Next Due Hep A, Adult 06/22/2003,11/10/2002 Influenza, Quadrivalent, Spl it, Preservative Free, Intramuscular 07/25/2017 Pneumococcal Polysaccharide PPV23 10/23/2009 Social History Tobacco Use Types Packs/Day Years Used Date Smoking Tobacco: Former Cigarettes Q uit: 2018 Smokeless Tobacco: Never Tobacco Cessation:Counseling Given: Not Answered Alcohol Use Standard Drinks/Week Comments No 0 (1 standard drink = 0.6 oz pur e alcohol) Humiliation, Afraid, Rape, and Kick questionnair e Answer Date Recorded Within the last year, have y ou been afraid of your partner or ex-partner? No 12/05/2020 Within the last year, have y ou been humiliated or emotionally abused in other ways by your partner or ex-partner? No Within the last year, have y ou been kicked, hit, slapped, or otherwise physically hurt by your partner or ex-partner? No 12/05/2020 Within the last year, have y ou been raped or forced to have any kind of sexual activity by your partner or ex-partner? No 12/05/2020 AUDIT-C Answer Date Recorded Q1: How often do you have a drink containing alc ohol? Monthly or less 06/03/2023 Average Number of Drinks Not on file 023 Frequency of Binge Drinking Not on file 05/23 PHQ-2 Answer Date Recorded PHQ-2 Score 2 05/14/2019 Personal Safety Answer Date Recorded Have you ever been in or are you currently in a harmful physical or emotional relationship or is someone making you feel afraid or unsafe? Denies 10/13/2024 Comments No Sex and Gender Information Value Date Recorded Sex Assigned at Not on file Legal Sex Female 7:58 PM MANAGER TECHNOLOGY Gender Identity Female 09/25/2022 5:40 PM MANAGER TECHNOLOGY Sexual Orientation Bisexual 09/25/2022 5: 40 PM MANAGER TECHNOLOGY Last Filed Vital Signs Vital Sign Reading Time Taken Comments Blood Pressure 122/84 11/08/2024 8:36 AM MANAGER TECHNOLOGY Pulse 78 11/08/2024 8:36 AM MANAGER TECHNOLOGY Temperature 36.4 C (97.6 F) 10/13/2024 5:55 PM MANAGER TECHNOLOGY Respiratory Rate 18 10/13/2024 11:20 PM MANAGER TECHNOLOGY Oxygen Saturation 97% 11/08/2024 8:36 AM MANAGER TECHNOLOGY Inhaled Oxygen Concentration - - Weight 127 kg (280 lb) 11/08/2024 8:36 AM MANAGER TECHNOLOGY Height 167.6 cm (5' 6 ) 11/08/2024 8:36 AM MANAGER TECHNOLOGY Body Mass Index 45.19 11/08/2024 8:36 AM MANAGER TECHNOLOGY Plan of Treatment Not on file Medical Devices Implanted Type Area Tele Rn Device Identifier Shelf Expiration Date Model / Serial / Lot Medtronic Sofamor Danek [id number] Infuse 18mm 26mm Absorbable Sponge Sterile Water Syringe Needle - [id number] Implanted:Qty: 1 on 02/01/2019 by Len Dorantes MD at [facility] N/A: Spine Lumbar Med[employer]onic Sofamor Danek 09/21/2020 [id number] / / [id number] Medtronic Sofamor Danek [id number] Infuse 14mm 23mm Absorbable Sponge Sterile Water Syringe Needle - [id number] Implanted:Qty: 1 on 02/01/2019 by Len Dorantes MD at [facility] N/A: Spine Lumbar Medtronic Sofamor Danek 12/20/2020 [id number] / / [id number] [employer] 60-24 6mm 24mm Spine Lumbar Screw Bone Nonsterile - [id number] Implanted:Qty: 8 on 02/01/2019 by Len Dorantes MD at [facility] N/A: Spine Lumbar [employer] 2560-24 / / [employer] [id number] Contact [id number] 8d Spacer Spinal Peek Sterile Latex Free - [id number] Implanted:Qty: 1 on 02/01/2019 by Len Dorantes MD at [facility] N/A: Spine Lumbar [employer] [id number] 07/10/2023 34-A30-10- 8 / / [id number] Description:L5 - S1 [employer] 25-Lp-34 34mm Spine Lumbar Anterior Plate Bone Nonsterile - [id number] Implanted:Qty: 1 on 02/01/2019 by Len Dorantes MD at [facility] N/A: Spine Lumbar [employer] 25-LP-34 / / Description:L5 - S1 [employer] [id number] Contact Option Vbr [id number] Lordosis Back Cutting Teeth - [id number] Implanted:Qty: 1 on 02/01/2019 by Len Dorantes MD at [facility] N/A: Spine Lumbar [employer] [id number] 07/10/2023 34-A30-12- 4 / / [id number] Description:L 4-L5 [employer] 25-Lp-36 36mm Spine Lumbar Anterior Plate Bone Nonsterile - [id number] Implanted:Qty: 1 on 02/01/2019 by Len Dorantes MD at [facility] N/A: Lumbar-Sac ral Spine [employer] 25-LP-36 / / Procedures Procedure Name Priority Date/Time Associated Diagnosis Comments LIPASE Routine 11/08/2024 9:06 AM MANAGER TECHNOLOGY AMYLASE Routine 11/08/2024 9:06 AM MANAGER TECHNOLOGY COMPREHENSIVE METABOLIC PANEL Routine 11/08/2024 9:06 AM MANAGER TECHNOLOGY 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) Encounter for long-term (current) use of medications CRP (ACUTE PHASE) Routine 11/08/2024 9:0 6 AM MANAGER TECHNOLOGY 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) Encounter for long-term (current) use of medications CBC WITH AUTO DIFFERENTIAL Routine 11/08/2024 9:06 AM MANAGER TECHNOLOGY 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) Encounter for long-term (current) use of medications ERYTHROCYTE SEDIMENTATION RATE Routine 11/08/2024 9:06 AM MANAGER TECHNOLOGY 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) Encounter for long-term (current) use of medications URINALYSIS, MICROSCOPIC ONLY STAT 10/13/2024 10:04 PM MANAGER TECHNOLOGY URINALYSIS AND REFLEX TO MICROSCOPIC AND CULTURE STAT 10/13/2024 10:04 PM MANAGER TECHNOLOGY POCT HCG, URINE Routine 10/13/2024 10:[address] ABDOMEN PELVIS W CONTRAST ED 10/13/2024 8:16 PM MANAGER TECHNOLOGY EGFR STAT 10/13/2024 6:04 PM MANAGER TECHNOLOGY DIFFERENTIAL AUTO STAT 10/13/2024 6:0 4 PM MANAGER TECHNOLOGY COMPREHENSIVE METABOLIC PANEL STAT 10/13/2024 6:04 PM MANAGER TECHNOLOGY CBC WITH AUTO DIFFERENTIAL STAT 10/13/2024 6:04 PM MANAGER TECHNOLOGY PAP AND HIGH RISK HPV, REFLEX TO GENOTYPING Routine 12/05/2020 3:07 PM CDT Routine gynecological examination from Last 3 Months or Most Recently Relevant to Health Maintenance Results * (ABNORMAL) CBC with auto differential (11/08/2024 9:06 AM MANAGER TECHNOLOGY) WBC 4.9 3.8 - 10.8 Thousand/u L [facility] RBC, POC 4.05 3.80 - 5.10 Million/uL [facility] Hgb 9.1(L) 11.7 - 15.5 g/dL [facility] Hct 32.7(L) 35.0 - 45.0 % [facility] MCV 80.7 80.0 - 100.0 fL [facility] MCH 22.5(L) 27.0 - 33.0 pg [facility] MCHC 27.8(L) 32.0 - 36.0 g/dL [facility] Comment: For adults, a slight decrease in the calculated MCHC value (in the range of 30 to 32 g/dL) is most likely not clinically significant; however, it should be interpreted with caution in correlation with other red cell parameters and the patient's clinical condition. Rdw 15.9(H) 11.0 - 15.0 % [facility] Platelets 299 140 - 400 Thousand/u L [facility] MPV 11.8 7.5 - 12.5 fL [facility] Neutrophils, abs 2,881 1,500 - 7,800 cells/uL [facility] Lymphocytes, abs 1,519 850 - 3,900 cells/uL [facility] Monocyte abs 402 200 - 950 cells/uL [facility] Eosinophils, abs 69 15 - 500 cells/uL [facility] Basophils, abs 29 0 - 200 cells/uL [facility] Neutrophils 58.8 % [facility] Lymphocyte pct 31.0 % [facility] Monocytes 8.2 % [facility] Eosinophils 1.4 % [facility] Basophils 0.6 % [facility] Blood 11/08/2024 9:06 AM MANAGER TECHNOLOGY 11/08/2024 9:09 AM MANAGER TECHNOLOGY Judie REYNOLDS LAB BLOOD ORDERAB LES Final Result Performing Organization Address [facility] Co de Phone Number [facility] [address] [facility] [place] [address] * Erythrocyte sedimentation rate (11/08/2024 9:06 AM MANAGER TECHNOLOGY) Erythrocyte sedimentation rate 11 < OR = 20 mm/h [facility] Blood 11/08/2024 9:06 AM MANAGER TECHNOLOGY 11/08/2024 9:09 AM MANAGER TECHNOLOGY Judie REYNOLDS LAB BLOOD ORDERAB LES Final Result Performing Organization Address [facility] de Phone Number [facility] [address] [facility] [place] [address] * CRP (acute phase) (11/08/2024 9:06 AM MANAGER TECHNOLOGY) C-RP <3.0 <8.0 mg/L [facility] Blood 11/08/2024 9:06 AM MANAGER TECHNOLOGY 11/08/2024 9:09 AM MANAGER TECHNOLOGY Judie REYNOLDS LAB BLOOD ORDERAB LES Final Result Performing Organization Address [facility] Co de Phone Number [facility] [address] [facility] [address] * Lipase (11/08/2024 9:06 AM MANAGER TECHNOLOGY) LIPASE 21 7 - 60 U/L [facility] 11/08/2024 9:06 AM MANAGER TECHNOLOGY 11/08/2024 9:09 AM MANAGER TECHNOLOGY Judie REYNOLDS LAB BLOOD ORDERAB LES Final Result Performing Organization Address City/[facility]/ZIP Co de Phone Number [facility] [address] [place] [address] * (ABNORMAL) Amylase (11/08/2024 9:06 AM MANAGER TECHNOLOGY) Pathologist [facility] Amylase 15(L) 21 - 101 U/L [facility] 11/08/2024 9:06 AM MANAGER TECHNOLOGY 11/08/2024 9:09 AM MANAGER TECHNOLOGY us Judie REYNOLDS LAB BLOOD ORDERAB LES Final Result Performing Organization Address [facility] [facility] Co de Phone Number [facility] [address] [place] [address] * (ABNORMAL) Comprehensive metabolic panel (11/08/2024 9:06 AM MANAGER TECHNOLOGY) Glucose 100(H) 65 - 99 mg/dL [facility] Comment: Fasting reference interval For someone without known diabetes, a glucose value between 100 and 125 mg/dL is consistent with prediabetes and should be confirmed with a follow-up test. BUN 5(L) 7 - 25 mg/dL [facility] Creatinine 0.70 0.50 - 0.99 mg/dL [facility] eGFR 109 > OR = 60 mL/min/1.7 3m2 [facility] BUN/creat ratio 7 6 - 22 (calc) [facility] Sodium 139 135 - 146 mmol/L [facility] Potassium, pl 4.0 3.5 - 5.3 mmol/L [facility] Chloride 103 98 - 110 mmol/L [facility] CO2 30 20 - 32 mmol/L [facility] Calcium 9.0 8.6 - 10.2 mg/dL [facility] Protein, sr 6.5 6.1 - 8.1 g/dL [facility] Albumin 4.3 3.6 - 5.1 g/dL [facility] GLOBULIN 2.2 1.9 - 3.7 g/dL (calc) [facility] Alb/glob ratio 2.0 1.0 - 2.5 (calc) [facility] Bilirubin, total 0.4 0.2 - 1.2 mg/dL [facility] Alk phos 87 31 - 125 U/L [facility] AST 18 10 - 30 U/L [facility] ALT (SGPT) 22 6 - 29 U/L [facility] Blood 11/08/2024 9:06 AM MANAGER TECHNOLOGY 11/08/2024 9:09 AM MANAGER TECHNOLOGY us Judie REYNOLDS LAB BLOOD ORDERAB LES Final Result [employer] [place] [address] [address] [address] * (ABNORMAL) Urinalysis reflex to microscopic and culture Urine (10/13/2024 10:04 PM MANAGER TECHNOLOGY) Color, ur Straw Yellow Clarity, ur Clear Clear [facility] Specific gravity, ur 1.023 1.003 - 1.030 [facility] pH, urine 7.5 [facility] Comment: Interpretive Data U rine pH is affected by diet, medications, systemic acid-base disturbances, and renal tubular function. pH may affect urinary stone formation. For example, urine pH below 6.0 may help reduce the tendency for calcium phosphate stones and pH greater than 6.0 may reduce the tendency for uric acid stone formation. Source: [facility] Current Interpretive Data was last revised on 2017 Protein, ur ql Negative Negative [facility] Glucose, ur ql Trace(A) Negative [facility] Ketones, ur 1+(A) Negative [facility] Bilirubin, ur Negative Negative [facility] Blood, ur Trace(A) Negative [facility] Urobilinogen, ur <2.0 <2.0 mg/dL [facility] Nitrite, ur Negative Negative [facility] Leukocyte esterase, ur Negative Negative [facility] UA reflex comment Reflex to microscopic UA will be performed. [facility] Urine 10/13/2024 10:0 4 PM MANAGER TECHNOLOGY 10/13/2024 10:04 PM MANAGER TECHNOLOGY Muna John MD LAB MICROBIOLOGY - GENERAL ORDERABLES Final Result Performing Organization Address [facility] Co de Phone Number [facility] [address] [facility] [place] [address] * Urinalysis, microscopic only (10/13/2024 10:04 PM MANAGER TECHNOLOGY) WBC, ur 0-5 0 - 5 /HPF RBC, ur 0-2 0 - 2 /HPF [facility] Epithelial cells, squamous, ur 1-5 0 - 5 /HPF [facility] Culture Reflex Comment Reflex conditions for urine culture (WBC >10) not met. [facility] Urine 10/13/2024 10:0 4 PM MANAGER TECHNOLOGY 10/13/2024 10:22 PM MANAGER TECHNOLOGY Result [facility] Yared Kim MD LAB URINE ORDERABLES Final R esult Performing Organization Address [facility] de Phone Number [facility] [address] [place] [address] * POCT hCG, urine (10/13/2024 10:01 PM MANAGER TECHNOLOGY) HCG, ur, POC Negative Negative Lot Number [id number] QC Backgroud Clear Acceptable QC Control Line Acceptable Urine 10/13/2024 10:0 1 PM MANAGER TECHNOLOGY Result [facility] Muna John MD POINT OF CARE TEST ORDERAB LES Final Result * CT Abdomen Pelvis W Contrast (10/13/2024 8:16 PM MANAGER TECHNOLOGY) Anatomical Region Laterality Modality Body N/A Computed Tomogra phy 10/13/2024 8:10 PM MANAGER TECHNOLOGY Impressions 10/14/2024 6:17 AM MANAGER TECHNOLOGY 1. Completely collapsed colon with resultant wall prominence. No definite CT evidence of acute colitis 2. Moderate to large hiatal hernia 3. Subacute to chronic anterior left 6th rib fracture For the purposes of quality improvement coordinator (rn), this study was initially interpreted by teleradiology. There is no significant discrepancy. Electronically signed by: Caryl Zhu M.D. Narrative 10/14/2024 6:17 AM MANAGER TECHNOLOGY EXAM: CT abdomen and pelvis with contrast HISTORY: Nausea and vomiting with diarrhea COMPARISON: None available. FINDINGS: CT abdomen and pelvis was performed with 96 mL Optiray 350 intravenous contrast. Lung bases are clear. Liver is normal. Gallbladder is present with no bile duct dilatation. Pancreas is normal. Spleen is normal. Adrenal glands are normal. Kidneys, ureters and urinary bladder are normal. Urinary bladder is incompletely distended. IUD is within the uterine cavity. There is a physiologic cyst in the right ovary. There is a moderate to large hiatal hernia. The entire colon is completely collapsed with resultant wall prominence. There is no surrounding soft tissue stranding to suggest acute colitis however. The appendix is normal. Small bowel loops are normal. There is no ascites or lymphadenopathy. The aorta is of normal caliber. There is normal perfusion of the portal venous system. There is a small fat-containing umbilical hernia. Inguinal regions are normal. There are changes of ventral fusion and discectomy at L4-L5 and L5-S1. There is no acute bone abnormality. There is a subacute to chronic anterior left 6th rib fracture. Correlate for point tenderness. Procedure Note Caryl Zhu MD - 10/14/2024 EXAM: CT abdomen and pelvis with contrast HISTORY: Nausea and vomiting with diarrhea COMPARISON: None available. FINDINGS: CT abdomen and pelvis was performed with 96 mL Optiray 350 intravenous contrast. Lung bases are clear. Liver is normal. Gallbladder is present with no bile duct dilatation. Pancreas is normal. Spleen is normal. Adrenal glands are normal. Kidneys, ureters and urinary bladder are normal. Urinary bladder is incompletely distended. IUD is within the uterine cavity. There is a physiologic cyst in the right ovary. There is a moderate to large hiatal hernia. The entire colon is completely collapsed with resultant wall prominence. There is no surrounding soft tissue stranding to suggest acute colitis however. The appendix is normal. Small bowel loops are normal. There is no ascites or lymphadenopathy. The aorta is of normal caliber. There is normal perfusion of the portal venous system. There is a small fat-containing umbilical hernia. Inguinal regions are normal. There are changes of ventral fusion and discectomy at L4-L5 and L5-S1. There is no acute bone abnormality. There is a subacute to chronic anterior left 6th rib fracture. Correlate for point tenderness. IMPRESSION: 1. Completely collapsed colon with resultant wall prominence. No definite CT evidence of acute colitis 2. Moderate to large hiatal hernia 3. Subacute to chronic anterior left 6th rib fracture For the purposes of quality improvement coordinator (rn), this study was initially interpreted by teleradiology. There is no significant discrepancy. Electronically signed by: Caryl Zhu M.D. Muna John MD IMG CT PROCEDURES Final Re sult * eGFR (10/13/2024 6:04 PM MANAGER TECHNOLOGY) eGFR >90 >=60 mL/min/1. 73 m2 Comment: Interpretive Data Reference Interval Normal >/= 90 mL/min/1.73m2 Mildly decreased* 60 - 89 mL/min/1.73m2 Mildly to moderately decreased 45 - 59 mL/min/1.73m2 Moderately to severely decreased 30 - 44 mL/min/1.73m2 Severely decreased 15 - 29 mL/min/1.73m2 Kidney Failure < 15 mL/min/1.73m2 *Relative to young adult level Estimated glomerular filtration rate is determined by the 2020 CKD-EPI equation recommended by the National Kidney Foundation (A Unifying Approach to GFR Estimation: Recommendations of the NKF-ASK Task Force on Reassessing the Inclusion of Race in Diagnosing Kidney Disease, JASN 202). The CKD-EPI equation should not be used for patients with unstable renal function and has not been validated in children and those over 70. Current interpretive data was last reviewed 2021. Blood 10/13/2024 6:04 PM MANAGER TECHNOLOGY 10/13/2024 6:42 PM MANAGER TECHNOLOGY Muna John MD LAB BLOOD ORDERABLES Final Result [facility] [address] Department [place] [address] * (ABNORMAL) Differential, auto (10/13/2024 6:04 PM MANAGER TECHNOLOGY) Neutrophil abs 7.0(H) 1.5 - 6.5 K/cumm Imm gran abs 0.0 0.0 - 0.1 K/cumm [facility] Lymphocyte abs 0.8 0.8 - 3.3 K/cumm [facility] Monocyte abs 0.3 0.2 - 0.8 K/cumm [facility] Eosinophil abs 0.0 0.0 - 0.5 K/cumm [facility] Basophil abs 0.0 0.0 - 0.1 K/cumm [facility] Neutrophil pct 85.9 % [facility] Comment: Interpretive Data Percent cell count reference ranges are not reported, since discordance with absolute values may lead to misinterpretation of CBC data. Current Interpretive Data was last revised on 2017. Imm gran pct 0.2 % [facility] Comment: Interpretive Data Percent cell count reference ranges are not reported, since discordance with absolute values may lead to misinterpretation of CBC data. Current Interpretive Data was last revised on 2017. Lymphocyte pct 9.8 % [facility] Comment: Interpretive Data Percent cell count reference ranges are not reported, since discordance with absolute values may lead to misinterpretation of CBC data. Current Interpretive Data was last revised on 2017. Monocyte pct 3.5 % [facility] Comment: Interpretive Data Percent cell count reference ranges are not reported, since discordance with absolute values may lead to misinterpretation of CBC data. Current Interpretive Data was last revised on 2017. Eosinophil pct 0.1 % [facility] Comment: Interpretive Data Percent cell count reference ranges are not reported, since discordance with absolute values may lead to misinterpretation of CBC data. Current Interpretive Data was last revised on 2017. Basophil pct 0.5 % [facility] Comment: Interpretive Data Percent cell count reference ranges are not reported, since discordance with absolute values may lead to misinterpretation of CBC data. Current Interpretive Data was last revised on 2017. Blood 10/13/2024 6:04 PM MANAGER TECHNOLOGY 10/13/2024 6:42 PM MANAGER TECHNOLOGY us Muna John MD LAB BLOOD ORDERABLES Final Result Performing Organization Address [facility]/ZIP Co de Phone Number [facility] [address] [place] [address] * (ABNORMAL) CBC with auto differential (10/13/2024 6:04 PM MANAGER TECHNOLOGY) Pathologist [facility] WBC 8.2 3.8 - 9.9 K/cumm Hgb 8.8(L) 11.9 - 15.5 g/dL [facility] Hct 31.2(L) 35.6 - 45.5 % [facility] Plt 342 150 - 400 K/cumm [facility] MPV 10.5 9.1 - 12.3 fL [facility] RBC 3.64(L) 3.90 - 5.20 M/cumm [facility] MCV 85.7 81.3 - 96.4 fL [facility] MCH 24.2(L) 27.1 - 33.3 pg [facility] MCHC 28.2(L) 32.3 - 35.7 g/dL [facility] RDW CV 17.4(H) 11.1 - 14.9 % [facility] RDW SD 53.9(H) 35.7 - 48.1 fL [facility] NRBC abs 0.00 0.00 - 0.01 K/cumm [facility] Blood Venous blood specimen / Unknown 10/13/2024 6:04 PM MANAGER TECHNOLOGY 10/13/2024 6:42 PM MANAGER TECHNOLOGY Muna John MD LAB BLOOD ORDERABLES Final Result [facility] [address] [place] [address] * (ABNORMAL) Comprehensive metabolic panel (10/13/2024 6:04 PM MANAGER TECHNOLOGY) Pathologist [facility] Sodium 142 135 - 145 mmol/L Potassium, pl 4.3 3.3 - 4.9 mmol/L [facility] Chloride 107 97 - 110 mmol/L [facility] CO2 23 22 - 32 mmol/L [facility] Anion gap 12 2 - 15 mmol/L [facility] BUN 6 6 - 25 mg/dL [facility] Creatinine 0.64 0.60 - 1.10 mg/dL [facility] Glucose 145 70 - 199 mg/dL [facility] Comment: Interpretive Data Fasting glucose >/= 126 mg/dl is diagnostic for diabetes. Fasting is defined as no caloric intake for at least 8 hours. Fasting glucose between 100 mg/dl to 125 mg/dl is diagnostic of prediabetes. In a patient with classic symptoms of hyperglycemia or hyperglycemic crisis, a random glucose >/= 200 mg/dl is diagnostic for diabetes. In the absence of unequivocal hyperglycemia, results should be confirmed by repeat testing. The classification and Diagnosis of Diabetes Diabetes Care 2021; 46: S19-S40. Current interpretive data was last revised 2022. Calcium 8.4(L) 8.5 - 10.3 mg/dL [facility] Bilirubin, total 0.2 0.1 - 1.2 mg/dL [facility] Protein, pl 7.5 6.5 - 8.5 g/dL [facility] Albumin 4.3 3.5 - 5.0 g/dL [facility] Alk phos 113 40 - 130 Units/L [facility] ALT 20 7 - 45 Units/L [facility] AST 31 10 - 45 Units/L [facility] Comment:Slightly Hemolyzed S pecimen Blood Venous blood specimen / Unknown 10/13/2024 6:04 PM MANAGER TECHNOLOGY 10/13/2024 6:42 PM MANAGER TECHNOLOGY us Muna John MD LAB BLOOD ORDERABLES Final Result [facility] [address] Department of [place] [address] * Pap and High Risk HPV, reflex to Genotyping (12/05/2020 3:07 PM CDT) Swab (Pap test) 12/05/2020 3 :07 PM CDT 12/07/2020 12:53 PM CDT Narrative [facility] - 12/08/2020 12:08 PM CDT [facility] results best viewed via link to PDF [address] [address] Tele: Bernadette Jama MD - Industrial Maintenance Repairer CYTOLOGY REPORT Patient Name: ANTONIA ARANDA Address: [address] [place] [address] Gender: F : 1980 (Age: 40) Service: Laboratory [facility]: [id number] Patient Type: [facility] Lab Taken: 12/05/2020 Reported: 12/08/2020 Physician(s): Marjorie Reza M.D. FINAL DIAGNOSIS: Specimen Type: - ThinPrep Pap and HPV w/ reflex Genotyping Statement of Specimen Adequacy: Source: Cervical/Endocervical - Satisfactory for interpretation - Endocervical /Transformation Zone component present - Case screened using computer assisted imaging technology General Categorization: - Negative for intraepithelial lesion or malignancy j/12/08/2020 12:08 ROMINA Sosa (ASCP) Report Reviewed and Electronically Signed By ROMINA Sosa (ASCP) Clerical Data Follow A; G0145 DIAGNOSIS COMMENT: Ancillary Testing: HPV High Risk Group (16, 18, 31, 33, 35, 39, 45, 51, 52, 56, 58, 59, 66 and 68) - Not Detected Reference Range: Not Detected This test was performed using the FINA 4800 CLINICAL DIAGNOSIS AND HISTORY Last Menstrual Period: 09/2020 Menstrual History: Irregular Cycles REPORT IMAGES AND/OR SCANNED DOCUMENTS ONLY VIEWABLE IN PDF FORMAT The Pap test is a screening test used to aid in the detection of cervical cancer and its precursors. It should not be the sole means by which malignant and premalignant lesions are diagnosed. Both false negative and false positive results may occur. It also has poor sensitivity for the detection of endometrial lesions and should not be used to evaluate suspected endometrial abnormalities. For these reasons it is most important to obtain Pap tests at regular intervals, as recommended by your physician or nurse practitioner. us Marjorie Reza MD LAB CYTOLOGY ORDERABLES F inal Result PATHOLOGY [facility] Laboratory Receiving [address] [place] [address] from Last 3 Months or Most Recently Relevant to Health Maintenance Insurance [employer]NA OPEN ACCESS CIGNA CIGNA OPEN ACCESS [employer] Advance Directives For more information, please contact: [phone] * Full Code (Latest Code Status on File) Date Activated Date Inactivated Comments 02/01/2019 1:47 PM 02/02/2019 3:38 PM Care Teams Respiratory Supervisor Relationship Specialty Start Date End Date Len Tran MD [address] [place] [address] PCP - General 12/06/16 Murphy Osorio MD [address] [place] [address] Consulting Physician Rheumatology 07/16/22 Eli Phillips NP [address] [place] [address] Nurse Practitioner 10/03/22 Barron Rico DO [address] [place] [address] Primary Eye Care Provider Optometry 10/22/22 Judie Starks PA [address] [place] [address] Physician Weld Inspector Rheumatology 10/22/22 Brenda Loomis MD [address] [place] [address] Plug Stitcher Hematology 10/22/22 Francisco Javier Curry MD [address] [place], [place] [id number] Wildlife Manager Gastroenterology 11/05/22 [place] [address] [address] [address] [place] [address] Consulting Physician Pain Management 01/20/24 Adina Taylor DNP [address] [place] [address] Nurse Practitioner Neurology 07/16/24
--- OUTSIDE RECORDS SUMMARY | 2024-11-29 15:43 | XMS_ITS | Encounter Summary ---
Author Organization [facility] Address [address] [place] [address] Phone Care Team Providers Care Griddle Attendant Name Role Phone Len Tran MD Primary Care Provider [phone] Murphy Osorio MD Unavailable [phone] Eli Phillips NP Unavailable [phone] Barron Rico DO Unavailable [phone] Judie Starks Unavailable Brenda Loomis MD Unavailable Francisco Javier Curry MD Unavailable [phone] Unique Dupont MD Unavailable Adina Taylor DNP Unavailable [phone] Encounter Details Date Type Department Care Team (Late st Contact Info) Description 11/24/2024 Orders Only [facility] [address] [place] [address] Judie Starks PA [address] [place] [address] Social History Tobacco Use Types Packs/Day Years Used Date Smoking Tobacco: Former Cigarettes Q uit: 2018 Smokeless Tobacco: Never Alcohol Use Standard Drinks/Week Comments No 0 [...] on file Legal Sex Female 7:58 PM MEDIA AID Gender Identity Female 09/25/2022 5:40 PM MEDIA AID Sexual Orientation Bisexual 09/25/2022 5: 40 PM MEDIA AID documented as of this encounter Plan of Treatment Not on file documented as of this encounter Visit Diagnoses Not on filedocumented in this encounter Discontinued Medications Medication Sig Discontinue Reason Start Date End Da te adalimumab-adaz 40 mg/0.4 mL pen injector Inject 40 mg under the skin every 14 (fourteen) days Duplicate order 11/17/2024 11/24/2024 documented as of this encounter Care Teams Griddle Attendant Relationship Specialty Start Date End Date PreLen mascorro MD [address] [place] [address] PCP - General 12/06/16 Murphy Osorio MD [address] [place] [address] Consulting Physician Rheumatology 07/16/22 Eli Phillips, ROBI [address] [place] [address] Nurse Practitioner 10/03/22 Barron Rico DO [address] [place] [address] Primary Eye Care Provider Optometry 10/22/22 Judie Starks PA [address] [place] [address] Physician Cryptologic Technician Rheumatology 10/22/22 Brenda Loomis MD [address] [place] [address] Laboratory Associate Hematology 10/22/22 Francisco Javier Curry MD [address] [place] [address] Nnps Gastroenterology 11/05/22 [place] [address] [address] [address] [place] [address] Consulting Physician Pain Management 01/20/24 dAina Taylor DNP [address] [place] [address] Nurse Practitioner Neurology 07/16/24 documented as of this encounter
--- OUTSIDE RECORDS SUMMARY | 2024-11-29 15:43 | XMS_ITS | Encounter Summary ---
Author Organization [facility] Address [address] [place] [address] Phone Care Team Providers Care Pizzamaker Name Role Phone Len Tran MD Primary Care Provider [phone] Murphy Osorio MD Unavailable Eli Phillips BEHAVIORAL ANALYST Unavailable Barron Rico DO Unavailable [phone] Judie Starks Unavailable Brenda Loomis MD Unavailable Francisco Javier Curry MD Unavailable Ca Oliva DPT Unavailable Unique Dupont MD Unavailable Adina Taylor DNP Unavailable [phone] Encounter Details Date Type Department Care Team (Late st Contact Info) Description 11/18/2018 Orders Only [facility] Scanning, Provider Social History Tobacco Use Types Packs/Day Years Used Date Smoking Tobacco: Former Smokeless Tobacco: Never Alcohol Use Standard Drinks/Week Comments No 0 (1 standard drink = 0.6 oz pur e alcohol) Comments Unknown Sex and Gender Information Value Date Recorded Sex Assigned at Not on file Legal Sex Female 7:58 PM HARD CANDY SPINNER Gender Identity Female 09/25/2022 5:40 PM HARD CANDY SPINNER Sexual Orientation Bisexual 09/25/2022 5: 40 PM HARD CANDY SPINNER documented as of this encounter Plan of Treatment Not on file documented as of this encounter Procedures Procedure Name Priority Date/Time Associated Diagnosis Comments SCAN - LABS 11/18/2018 documented in this encounter Results * SCAN - LABS (11/18/2018) us Provider Scanning Final Result documented in this encounter Visit Diagnoses Not on filedocumented in this encounter Additional Health Concerns Infection Onset Date Last Indicated Resolved Time C. difficile suspected 10/13/2024 10/13/202410/14 3:05 AM HARD CANDY SPINNER documented as of this encounter Care Teams Pizzamaker Relationship Specialty Start Date End Date Len Tran MD [address] [place] [address] PCP - General 12/06/16 Murphy Osorio MD [address] [place] [address] Consulting Physician Rheumatology 07/16/22 Eli Phillips NP [address] [place] [address] Nurse Practitioner 10/03/22 Barron Rico DO [address] [place] [address] Primary Eye Care Provider Optometry 10/22/22 Judie Starks PA [address] [place] [address] Physician Reference Assistant Rheumatology 10/22/22 Brenda Loomis MD [address] [place] [address] Ore Buyer Hematology 10/22/22 Francisco Javier Curry MD [address] [place] [address] Elementary Librarian Gastroenterology 11/05/22 Ca Oliva DPT [address] [place], [place] [id number] Physical Therapist Physical Therapy 04/24/23 10/13/23 [place] [address] [address] [address] [place] [address] Consulting Physician Pain Management 01/20/24 Adina Taylor DNP [address] [place] [address] Nurse Practitioner Neurology 07/16/24 documented as of this encounter
--- OUTSIDE RECORDS SUMMARY | 2024-11-29 15:43 | XMS_ITS | Encounter Summary ---
Author Organization [facility] Address [address] [facility] [place] [address] Care Team Providers Care Stripper Printed Circuit Boards Name Role Phone Len Tran MD Primary Care Provider [phone] Reason for Visit * Reason Onset Date Comments Appointment 05/06/2023 Encounter Details Date Type Department Care Team (Late st Contact Info) Description 05/06/2023 Telephone [facility] - WOOL CLEANER [address] [place] [address] Rd [address] [place] [address] Roya Kimble MD [address] [place] [address] Appointment Social History Tobacco Use Types Packs/Day Years Used Date Smoking Tobacco: Former Smokeless Tobacco: Never Sex and Gender Information Value Date Recorded Sex Assigned at Female 04/02/2023 4:35 PM CDT Gender Identity Female 04/02/2023 4:35 PM CDT Sexual Orientation Bisexual 04/02/2023 4: 35 PM CDT documented as of this encounter Miscellaneous Notes * Telephone Encounter - Melania Oviedo - 05/06/2023 4:04 PM CDT Pt called and believes she has a rupturing ovarian cyst that is causing her pain. She has never been seen by our office but is scheduled to see Dr Silva next month. She wants to know if she can come in sooner. documented in this encounter Plan of Treatment Upcoming Encounters Date Type Department Care Team (Late st Contact Info) Description 02/28/2025 2:15 PM CDT Office Visit [facility] - WOOL CLEANER [address] [facility] [address] [place] [address] Roya Kimble MD [address] [place] [address] documented as of this encounter Visit Diagnoses Not on filedocumented in this encounter Care Teams Stripper Printed Circuit Boards Relationship Specialty Start Date End Date Len Tran MD [address] [place] [address] PCP - General Internal Medicine 10/25/17 documented as of this encounter
--- OUTSIDE RECORDS SUMMARY | 2024-11-29 15:43 | XMS_ITS | Clinical Summary ---
Author Organization [facility] Address [address] [facility] [place] [address] Care Team Providers Care Hospitality Services Manager Name Role Phone Len Tran MD Primary Care Provider [phone] Source Comments [facility],non-owned Affiliates and Associated Physician Practices is amultiple site organization consisting of ambulatory clinics and hospital sitesin [place], [place], [place] and [place]. This disclosure is being madepursuant to the Care Everywhere program and may not contain all information available regarding this patient. Last updated 18.[facility] Allergies Active Allergy Reactions Criticality Noted Date Comments Cosyntropin Unknown 12/21/2017 Other reaction(s): Unknown Sulfa Drugs 10/25/2017 Sulfasalazine Dizziness,Palpitatio ns ,Unknown Low 04/08/2012 Wasp Venom Protein Swelling Medium 09/16/2019 Medications * Be aware that medications may not be up to date on this document. Alwaysverify current medications with the patient. Medication Sig Dispensed Refills Start Date End Date Status acetaZOLAMIDE ER 12hr (Diamox Sequel) 500 MG capsule TAKE 1 CAPSULE(500 MG) BY MOUTH TWICE DAILY 11/06/2022 Active adalimumab (Humira Pen) 40 MG/0.4ML injection INJECT 0.4 ML (40 MG) UNDER THE SKIN EVERY 14 DAYS 11/11/2022 Active albuterol HFA (Proventil; Ventolin; Proair) 108 (90 Base) MCG/ACT inhaler Inhale 2 (two) puffs by mouth every 6 hours as needed 02/19/2023 Active amitriptyline (Elavil) 100 MG tablet Take 1 (one) tablet by mouth at bedtime 05/18/2023 Active ARIPiprazole (Abilify) 5 MG tablet Take 1 (one) tablet by mouth every morning 05/19/2023 Active azaTHIOprine (Imuran) 50 MG tablet Take 2 tabs po qam and 1 tab po qpm. 10/02/2022 Active EPINEPHrine (Epipen) 0.3 MG/0.3ML auto-injector pen Inject 0.3 mL into muscle once daily as needed Active FLUoxetine (PROzac) 60 MG tablet Take 1 (one) tablet by mouth once daily 04/28/2023 Active gabapentin (Neurontin) 600 MG tablet Take 1 (one) tablet by mouth at bedtime 11/06/2022 Active gabapentin (Neurontin) 300 MG capsule Take 1 (one) capsule by mouth 2 times daily 11/06/2022 Active haloperidol (Haldol) 2 MG tablet Take 1 (one) tablet by mouth every 6 hours as needed 02/17/2022 Active levonorgestrel (Mirena) 20 MCG/DAY IUD 04/02/2022 04/02/2027 Active methylphenidate CR (Metadate Cd) 20 MG capsule 05/24/2023 Active mirabegron ER 24hr (Myrbetriq) 25 MG tablet Take 1 (one) tablet by mouth once daily 30 tablet 2 04/30/2023 Active omeprazole (PriLOSEC) 20 MG capsule Take 2 (two) capsules by mouth once daily Active ondansetron, disintegrating, (Zofran ODT) 8 MG tablet 1 tablet on the tongue and allow to dissolve as needed Orally Once a day for 6 day(s) 02/18/2022 Active traMADol (Ultram) 50 MG tablet 1 tablet as needed Orally every 6 hrs Active meloxicam (Mobic) 15 MG tablet Take 1 (one) tablet by mouth once daily 30 tablet 11 05/22/2023 Active Family History Medical History Relation Name Comments CVA Maternal Aunt 1 Cancer - Breast Maternal Aunt 2 Cancer Maternal Grandmother BRCA Other - Genetic Mother BRCA Relation Name Status Comments Maternal Aunt 1 Alive Maternal Aunt 2 Alive Maternal Grandmother Mother Social History Tobacco Use Types Packs/Day Years Used Date Smoking Tobacco: Former Smokeless Tobacco: Never Tobacco Cessation:Counseling Given: Not Answered Alcohol Use Standard Drinks/Week Comments Not Currently 0 (1 standard drink = 0.6 oz pur e alcohol) Sex and Gender Information Value Date Recorded Sex Assigned at Female 04/02/2023 4:35 PM CDT Gender Identity Female 04/02/2023 4:35 PM CDT Sexual Orientation Bisexual 04/02/2023 4 :35 PM CDT Last Filed Vital Signs Vital [...] Mass Index 44.39 06/02/2023 1:03 PM CDT Plan of Treatment Upcoming Encounters Date Type Department Care Team (Late st Contact Info) Description 02/28/2025 2:15 PM CDT Office Visit [facility] - 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 [facility] [address] [place] [address] Roya Kimble MD [address] [place] [address] Health Maintenance Due Date Last Done Comments LIPID TESTING 1980 MAMMOGRAM 1980 HIV SCREENING 1995 HEPATITIS C SCREENING 10/03/1998 DTAP/TDAP/TD VACCINES (1 - Tdap) 1999 HEPATITIS B VACCINE (1 of 3 - 19+ 3-dose series) 1999 PNEUMOCOCCAL VACCINE (1 of 2 - PCV) 1999 ZOSTER VACCINE (1 of 2) 1999 DEPRESSION SCREENING 09/22/2024 SCREENING FOR DIABETES 05/09/2026 05/09/2023 PAP SMEAR 06/02/2026 06/02/2023, 08/23/1998, 04/18/1998 COVID-19 VACCINE Completed 07/09/2024, 11/30/2020 INFLUENZA VACCINE Completed 07/09/2024, 07/25/2017 HIB VACCINE Aged Out No longer eligi ble based on patient's age to complete this topic HPV VACCINE Aged Out No longer eligi ble based on patient's age to complete this topic MENINGOCOCCAL (Group B) VACCINE Aged Out No longer eligible b ased on patient's age to complete this topic MENINGOCOCCAL VACCINE Aged Out No william maile eligible based on patient's age to complete this topic Procedures Procedure Name Priority Date/Time Associated Diagnosis Comments PAP IMAGE-GUIDED W HPV Routine 06/02/2023 1:51 PM CDT Encounter for gynecological examination with abnormal finding COMPREHENSIVE METABOLIC PANEL STAT 05/09/2023 5:29 PM CDT from Last 3 Months or Most Recently Relevant to Health Maintenance Results * PAP IMAGE-GUIDED W HPV (06/02/2023 1:51 PM CDT) Case Report Gynecologic Cytology Report Case: [id number] Authorizing Provider: Roya Kimble, Collected: 06/02/2023 01:51 PM Ordering Location: [facility] - Received: 06/03/2023 12:36 PM [facility] Screen: Kwame Traore Specimen: THINPREP - IMAGE GUIDED, Cervix/Endocervix 06/06/2023 3:22 PM CDT [facility] LMP iud 06/06/2023 3:22 PM CDT [facility] Menstrual Status IUD 06/06/20 23 3:22 PM CDT [facility] Specimen Adequacy Satisfactory for evaluation, endocervical/trans formation zone component absent. 06/06/2023 3:22 PM CDT [facility] Categorization Negative for intraepithelial lesion or malignancy. 06/06/2023 3:22 PM CDT [facility] Interpretation LIQUOR CLERK Negative for intraepithelial lesion or malignancy. 06/06/2023 3:22 PM CDT [facility] Pap Footnote The Pap Smear is a screening test. False positive and false negative results occur. Negative results do not preclude abnormalities, thus clinical correlation is required. This specimen was evaluated by the ThinPrep Imaging System along with an additional manual rescreening by a vamp cut out worker and/or pathologist. 06/06/2023 3:22 PM CDT [facility] Embedded Images 3:22 PM CDT [facility] Pathology/Cytolo gy MISCELLANEOUS SAMPLES / Unknown 06/02/2023 1:51 PM CDT 06/03/2023 12:36 PM CDT Roya Kimble MD LAB - PATHOL OGY/CYTOLOGY ORDERABLES [facility] [address] [phone] * (ABNORMAL) COMPREHENSIVE METABOLIC PANEL (05/09/2023 5:29 PM CDT) Glucose 114(H) 70 - 105 mg/dL 05/09/2023 5:52 PM CDT [facility] Sodium 137 136 - 145 mmol/L 05/09/2023 5:52 PM CDT [facility] Potassium 3.6 3.5 - 5.1 mmol/L 05/09/2023 5:52 PM CDT [facility] Chloride 107 98 - 107 mmol/L 05/09/2023 5:52 PM CDT [facility] CO2 19(L) 22 - 29 mmol/L 05/09/2023 5:52 PM CDT [facility] Calcium 9.2 8.4 - 10.4 mg/dL 05/09/2023 5:52 PM CDT [facility] Anion Gap 11 6 - 16 mmol/L 05/09/2023 5:52 PM CDT [facility] BUN 5(L) 5.3 - 18.7 mg/dL 05/09/2023 5:52 PM CDT [facility] Creatinine 0.90 0.57 - 1.11 mg/dL 05/09/2023 5:52 PM CDT [facility] Alkaline Phosphatase 86 40 - 150 U/L 05/09/2023 5:52 PM CDT [facility] ALT 18 0 - 55 U/L 05/09/2023 5:52 PM CDT [facility] AST 21 5 - 34 U/L 05/09/2023 5:52 PM CDT [facility] Protein Total 8.3 6.4 - 8.3 gm/dL 05/09/2023 5:52 PM CDT [facility] Albumin 4.1 3.4 - 5.0 gm/dL 05/09/2023 5:52 PM CDT [facility] Bilirubin Total 0.6 0.2 - 1.2 mg/dL 05/09/2023 5:52 PM CDT [facility] eGFR by CKD-EPI 82(L) >=90 mL/min/1.7 3 m2 05/09/2023 5:52 PM CDT [facility] Blood BLOOD SPECIMEN / Unknown Venipuncture / Unknown 05/09/2023 5:29 PM CDT 05/09/2023 5:34 PM CDT Bree London PA-C LAB - CHEMISTRY OR DERABLES Performing Organization Address City/State/[facility] Co de Phone Number [facility] [address] [place] [address] from Last 3 Months or Most Recently Relevant to Health Maintenance Care Teams Hospitality Services Manager Relationship Specialty Start Date End Date PrelutskLen tracy MD [address] [place] [address] PCP - General Internal Medicine 10/25/17
--- OUTSIDE RECORDS SUMMARY | 2024-11-29 15:43 | XMS_ITS | Encounter Summary ---
Author Organization [facility] Address [address] [place] [address] Phone Care Team Providers Care Manual Winder Name Role Phone Len Tran MD Primary Care Provider [phone] Murphy Osroio MD Unavailable [phone] Eli Phillips NP Unavailable Barron Rico DO Unavailable [phone] Judie Starks Unavailable Brenda Loomis MD Unavailable [phone] Francisco Javier Curry MD Unavailable [phone] Unique Dupont MD Unavailable Adina Taylor DNP Unavailable [phone] Encounter Details Date Type Department Care Team (Late st Contact Info) Description 11/09/2024 Results Follow-Up [facility] [address] [place] [address] Murphy Osorio MD [address] [facility] [address] [place] [address] Social History Tobacco Use Types [...] on file Legal Sex Female 7:58 PM WIRELESS OPERATOR Gender Identity Female 09/25/2022 5:40 PM WIRELESS OPERATOR Sexual Orientation Bisexual 09/25/2022 5: 40 PM WIRELESS OPERATOR documented as of this encounter Plan of Treatment Not on file documented as of this encounter Visit Diagnoses Not on filedocumented in this encounter Care Teams Manual Winder Relationship Specialty Start Date End Date Len Tran MD [address] [place] [address] PCP - General 12/06/16 Murphy Osorio MD [address] [place] [address] Consulting Physician Rheumatology 07/16/22 Eli Phillips NP [address] [place] [address] Nurse Practitioner 10/03/22 Barron Rico DO [address] [place] [address] Primary Eye Care Provider Optometry 10/22/22 Judie Starks PA [address] [place] [address] Physician Cuff Knitter Rheumatology 10/22/22 Brenda Loomis MD [address] [place] [address] Embroiderer Hand Hematology 10/22/22 Francisco Javier Curry MD [address] [place] [address] Nuclear Medicine Tech Gastroenterology 11/05/22 [place] [address] [address] [address] [place] [address] Consulting Physician Pain Management 01/20/24 Adina Taylor DNP [address] [place] [address] Nurse Practitioner Neurology 07/16/24 documented as of this encounter
--- OUTSIDE RECORDS SUMMARY | 2024-11-29 15:43 | XMS_ITS | Referral Summary ---
Author Organization [facility] Address [address] [facility] [place] [address] Care Team Providers Care Systems Operator Name Role Phone Len Tran MD Primary Care Provider [phone] Source Comments [facility],non-owned Affiliates and Associated Physician Practices is amultiple site organization consisting of ambulatory clinics and hospital sitesin [place], [place], [place] and [place]. This disclosure is being madepursuant to the Care Everywhere program and may not contain all information available regarding this patient. 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 [address] [facility] [address] [place] [address] Roya Kimble MD [address] [place] [address] Procedures Procedure Name Priority Date/Time Associated Diagnosis Comments PAP IMAGE-GUIDED W HPV Routine 06/02/2023 1:51 PM CDT Encounter for gynecological examination with abnormal finding COMPREHENSIVE METABOLIC PANEL STAT 05/09/2023 5:29 PM CDT from Last 3 Months or Most Recently Relevant to Health Maintenance Results * PAP IMAGE-GUIDED W HPV (06/02/2023 1:51 PM CDT) Case Report Gynecologic Cytology Report Case: [id number] Authorizing Provider: Roya Kimble, Collected: 06/02/2023 01:51 PM Ordering Location: [facility] - Received: 06/03/2023 12:36 PM [...] 3:22 PM CDT [facility] Interpretation OVERHEAD IRRIGATOR Negative for intraepithelial lesion or malignancy. 06/06/2023 3:22 PM CDT [facility] Pap Footnote The Pap Smear is a screening test. False positive and false negative results occur. Negative results do not preclude abnormalities, thus clinical correlation is required. This specimen was evaluated by the ThinPrep Imaging System along with an additional manual rescreening by a telegraphic instrument supervisor and/or pathologist. 06/06/2023 3:22 PM CDT [facility] Embedded Images 3:22 PM CDT [facility] Pathology/Cytolo gy MISCELLANEOUS SAMPLES / Unknown 06/02/2023 1:51 PM CDT 06/03/2023 12:36 PM CDT Roya Kimble MD LAB - PATHOL OGY/CYTOLOGY ORDERABLES Performing Organization Address City/State/[facility] Co de Phone Number [facility] [address] [phone] * (ABNORMAL) COMPREHENSIVE METABOLIC PANEL (05/09/2023 5:29 PM CDT) Glucose 114(H) 70 - 105 mg/dL 05/09/2023 5:52 PM CDT [facility] Sodium 137 136 - 145 mmol/L [...] - 55 U/L 05/09/2023 5:52 PM CDT [facility] AST 21 5 - 34 U/L 05/09/2023 5:52 PM CDT [facility] Protein Total 8.3 6.4 - 8.3 gm/dL 05/09/2023 5:52 PM CDT [facility] Albumin 4.1 3.4 - 5.0 gm/dL 05/09/2023 5:52 PM CDT [facility] Bilirubin Total 0.6 0.2 - 1.2 mg/dL 05/09/2023 5:52 PM CDT [facility] eGFR by CKD-EPI 82(L) >=90 mL/min/1.7 3 m2 05/09/2023 5:52 PM CDT [facility] Blood BLOOD SPECIMEN / Unknown Venipuncture / Unknown 05/09/2023 5:29 PM CDT 05/09/2023 5:34 PM CDT Bree London PA-C LAB - CHEMISTRY OR DERABLES [facility] [address] [place] [address] from Last 3 Months or Most Recently Relevant to Health Maintenance Care Teams Systems Operator Relationship Specialty Start Date End Date PrelutLen montalvo MD [address] [place] [address] PCP - General Internal Medicine 10/25/17
--- OUTSIDE RECORDS SUMMARY | 2024-11-29 15:43 | XMS_ITS | Clinical Summary ---
Author Organization [facility] Address [address] [place] [address] Care Team Providers Care [employer] Distributor Name Role Phone Len Tran MD Primary Care Provider [phone] Murphy Osorio MD Unavailable Eli Phillips NP Unavailable Barron Rico DO Unavailable [phone] Judie Starks Unavailable Brenda Loomis MD Unavailable Francisco Javier Curry MD Unavailable [phone] Unique Dupont MD Unavailable Adina Taylor DNP Unavailable [phone] Allergies Active Allergy Reactions Criticality Noted Date Comments Cosyntropin Unknown 12/21/2017 Other reaction(s): Unknown Hymenoptera Allergenic Extract Swelling Medium 09/16/2019 Sulfasalazine Palpitations,Unknown Low 10/16/2012 Medications albuterol sulfate 90 mcg/actuation aerosol powdr breath activated Inhale 2 puffs every 6 [...] 11/08/2024 Assessment & Plan (11/08/2024 9:00 AM HEEL SCORER): Advised pt to contact her gi and [...] 11/04/2022 Assessment & Plan (11/04/2022 5:31 PM HEEL SCORER): Start PT. Osteoarthritis of both knees 11/04/2022 Assessment & Plan (11/04/2022 5:32 PM HEEL SCORER): Check bilat knee xrays. Start PT. Discussed [...] 08/26/2022 Assessment & Plan (09/30/2022 7:47 AM HEEL SCORER): H/H 9.6-31.1. Her ferritin and iron are [...] iron. Assessment & Plan (08/26/2022 1:50 PM HEEL SCORER): H/H 9.6-31.1 Will check anemia panel. Has [...] examination. Assessment & Plan (11/08/2024 8:56 AM HEEL SCORER): Low cdai. Greatly improved since we changed [...] wrist. Assessment & Plan (10/16/2023 10:13 AM HEEL SCORER): Mod cdai. Having more joint pain since last visit, will see if insurance will approve humira weekly. Today she was given 2 boxes of humira to use one injection weekly. She was informed of increased risk of infection with humira weekly. F/u in 1 month to re-evaluate. If she continues to flare up in [facility] we can increase her imuran from 150mg [...] wrist. Assessment & Plan (08/01/2023 8:40 AM HEEL SCORER): Low cdai. Not worse since last visit. Has improved on humira and imuran. If she flares up in [facility] we can increase her imuran from 150mg [...] and imuran. [facility] her imuran from 150mg [...] wrist. Assessment & Plan (11/04/2022 5:30 PM HEEL SCORER): High cdai. Failing stelara. Will stop it [...] wrist. Assessment & Plan (09/30/2022 9:47 AM HEEL SCORER): Moderate CDAI. Tolerating imuran 50mg po every [...] wrist. Assessment & Plan (08/26/2022 3:07 PM HEEL SCORER): Low moderate CDAI today. Has previous diagnosis [...] wrist. Assessment & Plan (08/12/2022 12:49 PM HEEL SCORER): Low moderate CDAI. Has previous hx of [...] 08/12/2022 Assessment & Plan (11/08/2024 7:25 AM HEEL SCORER): HLA B27 neg 11/2020 HLA B51 negative [...] 11/04/2022. Assessment & Plan (10/16/2023 10:14 AM HEEL SCORER): HLA B27 neg 11/2020 HLA B51 negative [...] 11/04/2022. Assessment & Plan (08/01/2023 8:40 AM HEEL SCORER): HLA B27 neg 11/2020 HLA B51 negative [...] 11/04/2022. Assessment & Plan (11/04/2022 5:30 PM HEEL SCORER): HLA B27 neg 11/2020 HLA B51 negative [...] 11/04/2022. Assessment & Plan (09/30/2022 7:53 AM HEEL SCORER): HLA B27 neg 11/2020 HLA B51 negative 07/2022 Heb B negative 07/2022 Hep C Ab + but confirmatory Heb C RNA PCR negative 07/2022 Avise 07/2022:Anti thyroglobulin. Anti cardiolipin IgG Quant gold neg 07/2022 TPTM wnl 16 on 07/2022 Cxr 08/21---clear lungs but 9cm hiatal hernia suspected. Assessment & Plan (08/26/2022 10:08 AM HEEL SCORER): HLA B27 neg 11/2020 HLA B51 negative 07/2022 Heb B negative 07/2022 Hep C Ab + but confirmatory Heb C RNA PCR negative 07/2022 Avise 07/2022:Anti thyroglobulin. Anti cardiolipin IgG Quant gold neg 07/2022 TPTM wnl 16 on 07/2022 Cxr 08/21---clear lungs but 9cm hiatal hernia suspected. Assessment & Plan (08/12/2022 8:18 AM HEEL SCORER): HLA B27 neg 11/2020 Crohn's disease with [...] control. Assessment & Plan (08/26/2022 9:53 AM HEEL SCORER): Seekrystian jama on Stelara. Assessment & Plan (08/12/2022 12:49 PM HEEL SCORER): Seekrystian jama on Stelara. Intranasal ulcers 08/12/2022 Assessment & Plan (08/12/2022 12:50 PM HEEL SCORER): Check serologies. Chronic pain of both knees 08/12/2022 Assessment & Plan (09/30/2022 7:43 AM HEEL SCORER): Normal bilat knee xrays. If symptoms worse will start PT and consider MRI. Assessment & Plan (08/26/2022 1:54 PM HEEL SCORER): Normal bilat knee xrays. If symptoms worse will start PT and consider MRI. Assessment & Plan (08/12/2022 12:50 PM HEEL SCORER): Check bilat knee Xrays. Arthritis 04/02/2022 Overview (04/02/2022): Secondary to Crohn's Marijuana use 04/02/2022 Hypokalemia 02/18/2022 Intractable nausea and vomiting 02/18/2022 Leukocytosis (leucocytosis) 02/18/2022 Moderate episode of recurrent major depressive d isorder 02/17/2020 Spinal instabilities, lumbar region 12/22/2018 Overview (12/22/2018): Added automatically from request for surgery [id number] Assessment & Plan (09/30/2019 11:12 AM HEEL SCORER): Assessment Healing fusion L4-5 and L5-S1 Plan [...] (12/22/2018): Added automatically from request for surgery [id number] Assessment & Plan (04/21/2019 11:34 AM CDT): [...] (12/22/2018): Added automatically from request for surgery [id number] Herniated nucleus pulposus, L5-S1 12/22/2018 Overview (12/22/2018): Added automatically from request for surgery [id number] Former smoker 11/18/2018 Other intervertebral disc displacement, lumbar r egion 11/18/2018 Assessment & Plan (11/18/2018 9:58 AM HEEL SCORER): Assessment Segmental instability L4-5 L5-S1 central disc [...] Resolved Date Tobacco use disorder 04/22/2018 019 Encounters Date Type Department Care Team Description 11/24/2024 Orders Only [address] [address] Judie Starks PA 11/24/[address] [address] Sukhdev Diaz Script Error 11/12/[address] [address] Sukhdev Diaz Humira denied 11/09/2024 Results Follow-Up [address] [address] Murphy Osorio MD 11/08/2024 8:30 AM HEEL SCORER Office Visit [address] [address] Judie Starks PA 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 Emergency Department [address] [place] [phone] Muna John MD Vomiting and diarrhea (Primary Dx); Anemia, unspecified type Discharge Disposition: Discharge to home or self care 10/05/2024 Orders Only [facility] Ophthalmology [address] [facility] 6th [place] [phone] Tracey Stovall MD Idiopathic intracranial hypertension (Primary Dx); 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; Papilledema 09/06/2024 Telephone [facility] Neuro Sleep [address] [place] [address] Adina Taylor DNP 09/06/2024 Orders Only [facility] Neuro Sleep [address] [place] [phone] Adina Taylor DNP JENNIFER (obstructive sleep apnea) (Primary Dx) from Last 3 Months Immunizations Immunization Administration Dates Next Due Hep A, Adult 06/22/2003,11/10/2002 Influenza, Quadrivalent, Spl it, Preservative Free, Intramuscular 07/25/2017 Pneumococcal Polysaccharide PPV23 10/23/2009 Surgical History Surgery Date Site/Laterality Comments OVARIAN CYST REMOVAL TYMPANOSTOMY TUBE PLACEMENT SPINAL FUSION 02/01/2019 L4-S1 ALIF CLAVICLE SURGERY 09/16/2019 DIAGNOSTIC LAPAROSCOPY 09/22/2000 - 10/22/2000 dx laparoscopy with Matersons windows and attenuated L uterosaccral ligaments-endometriosis COLPOSCOPY W/ BIOPSY / CURETTAGE 01/13/2001 LGSIL on pap. path: JI 1 CERVIX LESION DESTRUCTION 05/04/2001 cryotherapy for JI 1 COLONOSCOPY W/ BIOPSIES UPPER GASTROINTESTINAL ENDOSCOPY LUMBAR PUNCTURE WO INJECTION , DIAGNOSTIC 11/04/2022 N/A EPIDURAL BLOOD PATCH 11/08/2022 N/A Medical History Medical History Date Comments Crohn disease (HCC) Arthritis Migraines + aura too Obesity (BMI 30.0-34.9) Herniated nucleus pulposus of lumbosacral region Spinal instabilities of lumbosacral region Anxiety and depression GERD (gastroesophageal reflux disease) RA (rheumatoid arthritis) (HCC) Endometriosis determined by laparoscopy Adhd Abnormal Pap smear of cervix Idiopathic intracranial hypertension 11/04/2022 Family History Medical History Relation Name Comments Ovarian cancer Maternal Grandmother Cataracts Mother Colon cancer Neg Hx Thrombophilia Neg Hx Uterine cancer Neg Hx Relation Name Status Comments Maternal Grandmother Mother Mother's Sister Social History Tobacco Use Types Packs/Day [...] on file Legal Sex Female 7:58 PM HEEL SCORER Gender Identity Female 09/25/2022 5:40 PM HEEL SCORER Sexual Orientation Bisexual 09/25/2022 5: 40 PM HEEL SCORER Obstetrics History Para Term AB IAB SAB Ectopic Multiple Livin g Live Births 0 0 0 0 0 0 0 0 0 0 0 Last Filed Vital Signs Vital Sign Reading Time Taken Comments Blood Pressure 122/84 11/08/2024 8:36 AM HEEL SCORER Pulse 78 11/08/2024 8:36 AM HEEL SCORER Temperature 36.4 C (97.6 F) 10/13/2024 5:55 PM HEEL SCORER Respiratory Rate 18 10/13/2024 11:20 PM HEEL SCORER Oxygen Saturation 97% 11/08/2024 8:36 AM HEEL SCORER Inhaled Oxygen Concentration - - Weight 127 kg (280 lb) 11/08/2024 8:36 AM HEEL SCORER Height 167.6 cm (5' 6 ) 11/08/2024 8:36 AM HEEL SCORER Body Mass Index 45.19 11/08/2024 8:36 AM HEEL SCORER Plan of Treatment Health Maintenance Due Date Last Done Comments Breast Cancer Screening-Mammogram 1980 Hepatitis C Screening 1980 DTaP/Tdap/Td Vaccine (1 - Tdap) 1991 Varicella Vaccines (1 of 2 - 13+ 2-dose series) 1993 Zoster Vaccine (1 of 2) 1999 Pneumococcal vaccine <65 (2 of 2 - PCV) 10/23/2010 10/23/2009 Depression Screening 01/14/2020 01/13/2019, 11/18/2018 Covid-19 Vaccine (2 - Jansse n risk series) 12/28/2020 11/30/2020 Cervical Cancer Screening 12/05/2021 12/05/2020 Regular Well Visit/Exam 18-64 12/05/2021 12/05/2020 Influenza Vaccine (#1) 2024 07/25/2017 Hepatitis B Screening Completed 08/12/2022 HPV Vaccines Aged Out No longer eligi ble based on patient's age to complete this topic Medical Devices Implanted Type Area Concert Singer Device Identifier Shelf Expiration Date Model / Serial / Lot Medtronic Sofamor Danek [id number] Infuse 18mm 26mm Absorbable Sponge Sterile Water Syringe Needle - [id number] Implanted:Qty: 1 on 02/01/2019 by Len Dorantes MD at [facility] N/A: Spine Lumbar Medtronic Sofamor Danek 09/21/2020 [id number] / / [id number] Medtronic Sofamor Danek [id number] Infuse 14mm 23mm Absorbable Sponge Sterile Water Syringe Needle - [id number] Implanted:Qty: 1 on 02/01/2019 by Len Dorantes MD at [facility] N/A: Spine Lumbar Medtronic Sofamor Danek 12/20/2020 [id number] / / [id number] [employer] 2560-24 6mm 24mm Spine Lumbar Screw Bone Nonsterile - [id number] Implanted:Qty: 8 on 02/01/2019 by Len Dorantes MD at [facility] N/A: Spine Lumbar [employer] 2560-24 / / [employer] 34-V99-23-1 Contact [id number] 8d Spacer Spinal Peek Sterile Latex Free - [id number] Implanted:Qty: 1 on 02/01/2019 by Len Dorantes MD at [facility] N/A: Spine Lumbar [employer] [id number] 07/10/2023 34-A30-10- 8 / / [id number] Description:L5 - S1 [employer] 25-Lp-34 34mm Spine Lumbar Anterior Plate Bone Nonsterile - [id number] Implanted:Qty: 1 on 02/01/2019 by Len Dorantes MD at [facility] N/A: Spine Lumbar [employer] 25-LP-34 / / Description:L5 - S1 [employer] 34-[id number] Contact Option Vbr [id number] Lordosis Back Cutting Teeth - [id number] Implanted:Qty: 1 on 02/01/2019 by Len Dorantes MD at [facility] N/A: Spine Lumbar [employer] [id number] 07/10/2023 34-A30-12- 4 / / [id number] Description:L 4-L5 [employer] 25-Lp-36 36mm Spine Lumbar Anterior Plate Bone Nonsterile - [id number] Implanted:Qty: 1 on 02/01/2019 by Len Dorantes MD at 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) Encounter for long-term (current) use of medications CBC WITH AUTO DIFFERENTIAL Routine 11/08/2024 9:06 AM HEEL SCORER 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) Encounter for long-term (current) use of medications ERYTHROCYTE SEDIMENTATION RATE Routine 11/08/2024 9:06 AM HEEL SCORER 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) Encounter for long-term (current) use of medications URINALYSIS, MICROSCOPIC ONLY STAT 10/13/2024 10:04 PM HEEL SCORER URINALYSIS AND REFLEX TO MICROSCOPIC AND CULTURE STAT 10/13/2024 10:04 PM HEEL SCORER POCT HCG, URINE Routine 10/13/2024 10:[address] ABDOMEN PELVIS W CONTRAST ED 10/13/2024 8:16 PM HEEL SCORER EGFR STAT 10/13/2024 6:04 PM HEEL SCORER DIFFERENTIAL AUTO STAT 10/13/2024 6:0 4 PM HEEL SCORER COMPREHENSIVE METABOLIC PANEL STAT 10/13/2024 6:04 PM HEEL SCORER CBC WITH AUTO DIFFERENTIAL STAT 10/13/2024 6:04 PM HEEL SCORER PAP AND HIGH RISK HPV, REFLEX TO GENOTYPING Routine 12/05/2020 3:07 PM CDT Routine gynecological examination from Last 3 Months or Most Recently Relevant to Health Maintenance Results * (ABNORMAL) CBC with auto differential (11/08/2024 9:06 AM HEEL SCORER) WBC 4.9 3.8 - 10.8 Thousand/u L [...] [facility] Blood 11/08/2024 9:06 AM HEEL SCORER 11/08/2024 9:09 AM HEEL SCORER Judie REYNOLDS LAB BLOOD ORDERAB LES Final Result Performing Organization Address [facility]/ZIP Co de Phone Number QUEST [facility] [address] [place] [address] * Erythrocyte sedimentation rate (11/08/2024 9:06 AM HEEL SCORER) Erythrocyte sedimentation rate 11 < OR = 20 mm/h [facility] Blood 11/08/2024 9:06 AM HEEL SCORER 11/08/2024 9:09 AM HEEL SCORER Judie REYNOLDS LAB BLOOD ORDERAB LES Final Result Performing Organization Address [facility] Co de Phone Number QUEST [facility] [address] [place] [address] * CRP (acute phase) (11/08/2024 9:06 AM HEEL SCORER) C-RP <3.0 <8.0 mg/L [facility] Blood 11/08/2024 9:06 AM HEEL SCORER 11/08/2024 9:09 AM HEEL SCORER Judie REYNOLDS LAB BLOOD ORDERAB LES Final Result Performing Organization Address [facility] Co de Phone Number QUEST [facility] [address] [place] [address] * Lipase (11/08/2024 9:06 AM HEEL SCORER) LIPASE 21 7 - 60 U/L [facility] 11/08/2024 9:06 AM HEEL SCORER 11/08/2024 9:09 AM HEEL SCORER Judie REYNOLDS LAB BLOOD ORDERAB LES Final Result Performing Organization Address [facility]/ZIP Co de Phone Number QUEST [facility] [address] [place] [address] * (ABNORMAL) Amylase (11/08/2024 9:06 AM HEEL SCORER) Pathologist [facility] Amylase 15(L) 21 - 101 U/L [facility] 11/08/2024 9:06 AM HEEL SCORER 11/08/2024 9:09 AM HEEL SCORER Judie Gabriela REYNOLDS LAB BLOOD ORDERAB LES Final Result Performing Organization Address [facility] de Phone Number QUEST [facility] [address] [place] [address] * (ABNORMAL) Comprehensive metabolic panel (11/08/2024 9:06 AM HEEL SCORER) Pathologist [facility] Glucose 100(H) 65 - 99 mg/dL [facility] [...] [facility] Blood 11/08/2024 9:06 AM HEEL SCORER 11/08/2024 9:09 AM HEEL SCORER us Judie REYNOLDS LAB BLOOD ORDERAB LES Final Result [facility] [address] [address] [facility] [place] [address] * (ABNORMAL) Urinalysis reflex to microscopic and culture Urine (10/13/2024 10:04 PM HEEL SCORER) Color, ur Straw Yellow Clarity, ur Clear Clear [facility] Specific gravity, ur 1.023 1.003 - 1.030 [facility] pH, urine 7.5 [facility] Comment: Interpretive Data U rine pH is affected by diet, medications, systemic acid-base disturbances, and renal tubular function. pH may affect urinary stone formation. For example, urine pH below 6.0 may help reduce the tendency for calcium phosphate stones and pH greater than 6.0 may reduce the tendency for uric acid stone formation. Source: [facility] [place] Current Interpretive Data was last revised on 2017 Protein, ur ql Negative Negative [facility] Glucose, ur ql Trace(A) Negative [facility] Ketones, ur 1+(A) Negative [facility] Bilirubin, ur Negative Negative [facility] Blood, ur Trace(A) Negative [facility] Urobilinogen, ur <2.0 <2.0 mg/dL [facility] Nitrite, ur Negative Negative [facility] Leukocyte esterase, ur Negative Negative [facility] UA reflex comment Reflex to microscopic UA will be performed. [facility] Urine 10/13/2024 10:0 4 PM HEEL SCORER 10/13/2024 10:04 PM HEEL SCORER Result [facility] Muna John MD LAB MICROBIOLOGY - GENERAL ORDERABLES Final Result Performing Organization Address [facility] Co de Phone Number [facility] [address] [place] [address] * Urinalysis, microscopic only (10/13/2024 10:04 PM HEEL SCORER) WBC, ur 0-5 0 - 5 /HPF RBC, ur 0-2 0 - 2 /HPF [facility] Epithelial cells, squamous, ur 1-5 0 - 5 /HPF [facility] Culture Reflex Comment Reflex conditions for urine culture (WBC >10) not met. [facility] Urine 10/13/2024 10:0 4 PM HEEL SCORER 10/13/2024 10:22 PM HEEL SCORER Yared Kim MD LAB URINE ORDERABLES Final R esult Performing Organization Address [facility] Co de Phone Number [facility] [address] [place] [address] * POCT hCG, urine (10/13/2024 10:01 PM HEEL SCORER) HCG, ur, POC Negative Negative Lot Number [id number] QC Backgroud Clear Acceptable QC Control Line Acceptable Urine 10/13/2024 10:0 1 PM HEEL SCORER Result [facility] Muna John MD POINT OF CARE TEST ORDERAB LES Final Result * CT Abdomen Pelvis W Contrast (10/13/2024 8:16 PM HEEL SCORER) Anatomical Region Laterality Modality Body N/A Computed Tomogra phy 10/13/2024 8:10 PM HEEL SCORER Impressions 10/14/2024 6:17 AM HEEL SCORER 1. Completely collapsed colon with resultant wall prominence. No definite CT evidence of acute colitis 2. Moderate to large hiatal hernia 3. Subacute to chronic anterior left 6th rib fracture For the purposes of quality review trainer, this study was initially interpreted by teleradiology. There is no significant discrepancy. Electronically signed by: Caryl Zhu M.D. Narrative 10/14/2024 6:17 AM HEEL SCORER EXAM: CT abdomen and pelvis with contrast [...] rib fracture For the purposes of quality review trainer, this study was initially interpreted by teleradiology. There is no significant discrepancy. Electronically signed by: Caryl Zhu M.D. Muna John MD IMG CT PROCEDURES Final Re sult * eGFR (10/13/2024 6:04 PM HEEL SCORER) eGFR >90 >=60 mL/min/1. 73 m2 Comment: [...] last reviewed 2021. Blood 10/13/2024 6:04 PM HEEL SCORER 10/13/2024 6:42 PM HEEL SCORER Muna John MD LAB BLOOD ORDERABLES Final Result [facility] [address] Department [place] [address] * (ABNORMAL) Differential, auto (10/13/2024 6:04 PM HEEL SCORER) Neutrophil abs 7.0(H) 1.5 - 6.5 K/cumm Imm gran abs 0.0 0.0 - 0.1 K/cumm [facility] Lymphocyte abs 0.8 0.8 - 3.3 K/cumm [facility] Monocyte abs 0.3 0.2 - 0.8 K/cumm [facility] Eosinophil abs 0.0 0.0 - 0.5 K/cumm [facility] Basophil abs 0.0 0.0 - 0.1 K/cumm [facility] Neutrophil pct 85.9 % [facility] Comment: Interpretive Data Percent cell count reference ranges are not reported, since discordance with absolute values may lead to misinterpretation of CBC data. Current Interpretive Data was last revised on 2017. Imm gran pct 0.2 % [facility] Comment: Interpretive Data Percent cell count reference ranges are not reported, since discordance with absolute values may lead to misinterpretation of CBC data. Current Interpretive Data was last revised on 2017. Lymphocyte pct 9.8 % [facility] Comment: Interpretive Data Percent cell count reference ranges are not reported, since discordance with absolute values may lead to misinterpretation of CBC data. Current Interpretive Data was last revised on 2017. Monocyte pct 3.5 % [facility] Comment: Interpretive Data Percent cell count reference ranges are not reported, since discordance with absolute values may lead to misinterpretation of CBC data. Current Interpretive Data was last revised on 2017. Eosinophil pct 0.1 % [facility] Comment: Interpretive Data Percent cell count reference ranges are not reported, since discordance with absolute values may lead to misinterpretation of CBC data. Current Interpretive Data was last revised on 2017. Basophil pct 0.5 % [facility] Comment: Interpretive Data Percent cell count reference ranges are not reported, since discordance with absolute values may lead to misinterpretation of CBC data. Current Interpretive Data was last revised on 2017. Blood 10/13/2024 6:04 PM HEEL SCORER 10/13/2024 6:42 PM HEEL SCORER us Muna John MD LAB BLOOD ORDERABLES Final Result Performing Organization Address City/[facility]/ZIP Co de Phone Number [facility] [address] [employer] [place] [address] * (ABNORMAL) CBC with auto differential (10/13/2024 6:04 PM HEEL SCORER) Pathologist [facility] WBC 8.2 3.8 - 9.9 K/cumm Hgb 8.8(L) 11.9 - 15.5 g/dL [facility] Hct 31.2(L) 35.6 - 45.5 % [facility] Plt 342 150 - 400 K/cumm [facility] MPV 10.5 9.1 - 12.3 fL [facility] RBC 3.64(L) 3.90 - 5.20 M/cumm [facility] MCV 85.7 81.3 - 96.4 fL [facility] MCH 24.2(L) 27.1 - 33.3 pg [facility] MCHC 28.2(L) 32.3 - 35.7 g/dL [facility] RDW CV 17.4(H) 11.1 - 14.9 % [facility] RDW SD 53.9(H) 35.7 - 48.1 fL [facility] NRBC abs 0.00 0.00 - 0.01 K/cumm [facility] Blood Venous blood specimen / Unknown 10/13/2024 6:04 PM HEEL SCORER 10/13/2024 6:42 PM HEEL SCORER us Muna John MD LAB BLOOD ORDERABLES Final Result [facility] [address] [place] [address] * (ABNORMAL) Comprehensive metabolic panel (10/13/2024 6:04 PM HEEL SCORER) Sodium 142 135 - 145 mmol/L Potassium, pl 4.3 3.3 - 4.9 mmol/L [facility] Chloride 107 97 - 110 mmol/L [facility] CO2 23 22 - 32 mmol/L [facility] Anion gap 12 2 - 15 mmol/L [facility] BUN 6 6 - 25 mg/dL [facility] Creatinine 0.64 0.60 - 1.10 mg/dL [facility] Glucose 145 70 - 199 mg/dL [facility] Comment: Interpretive Data Fasting glucose >/= 126 [...] 2022. Calcium 8.4(L) 8.5 - 10.3 mg/dL [facility] Bilirubin, total 0.2 0.1 - 1.2 mg/dL [facility] Protein, pl 7.5 6.5 - 8.5 g/dL [facility] Albumin 4.3 3.5 - 5.0 g/dL [facility] Alk phos 113 40 - 130 Units/L [facility] ALT 20 7 - 45 Units/L [facility] AST 31 10 - 45 Units/L [facility] Comment:Slightly Hemolyzed S pecimen Blood Venous blood specimen / Unknown 10/13/2024 6:04 PM HEEL SCORER 10/13/2024 6:42 PM HEEL SCORER us Muna John MD LAB BLOOD ORDERABLES Final Result [facility] [address] [place] [address] * Pap and High Risk HPV, reflex to Genotyping (12/05/2020 3:07 PM CDT) Swab (Pap test) 12/05/2020 3 :07 PM CDT 12/07/2020 12:53 PM CDT Narrative PATHOLOGY [facility] - 12/08/2020 12:08 PM CDT [facility] results best viewed via link to PDF [address] [address] Tele: Bernadette Jama MD - Client Relationship Consultant CYTOLOGY REPORT Patient Name: ANTONIA ARANDA Address: [address] [place] [address] Gender: F : 1980 (Age: 40) Service: Laboratory Location: Lab Hospital #: [id number] Patient Type: [facility] Lab Taken: 12/05/2020 Reported: 12/08/2020 Physician(s): Marjorie [...] LAB CYTOLOGY ORDERABLES F inal Result PATHOLOGY [facility] Laboratory Receiving [address] [place] [address] from Last 3 Months or Most Recently Relevant to Health Maintenance Insurance [employer] OPEN ACCESS CIGNA CIGNA OPEN ACCESS CIGNA Advance Directives For more information, please contact: [phone] * Full Code (Latest Code Status on File) Date Activated Date Inactivated Comments 02/01/2019 1:47 PM 02/02/2019 3:38 PM Care Teams Oil Distributor Relationship Specialty Start Date End Date PreLen mascorro MD [address] [place] [address] PCP - General 12/06/16 Murphy Osorio MD [address] [place] [address] Consulting Physician Rheumatology 07/16/22 Eli Phillips NP [address] [place] [address] Nurse Practitioner 10/03/22 Barron Rico DO [address] [place] [address] Primary Eye Care Provider Optometry 10/22/22 Judie Starks PA [address] [place] [address] Physician Desktop Support Engineer Rheumatology 10/22/22 Brenda Loomis MD [address] [place] [address] Union Carpenter Hematology 10/22/22 Francisco Javier Curry MD [address] [place] [address] Carpet Cutter Gastroenterology 11/05/22 [place] [address] [address] [address] [place] [address] Consulting Physician Pain Management 01/20/24 Adina Taylor DNP [address] [place] [address] Nurse Practitioner Neurology 07/16/24
--- OUTSIDE RECORDS SUMMARY | 2024-11-29 15:43 | XMS_ITS | Encounter Summary ---
Author Organization [facility] Address [address] [place] [address] Care Team Providers Care Corporate Investigator Name Role Phone Len Tran MD Primary Care Provider [phone] Encounter Details Date Type Department Care Team (Late st Contact Info) Description 11/29/2024 External Device Data [place] ABSTRACTION Provider, Abstract NO ADDRESS ON FILE Social History Tobacco Use Types Packs/Day Years Used Date Smoking Tobacco: Former Cigarettes Q uit: 10/09/1999 Smokeless Tobacco: Never Comments:quit sep 2018 Alcohol Use Standard Drinks/Week [...] week 11/19/2019 How often do you attend [facility] or yarsani services? 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 Gender Identity Not on file Sexual Orientation Not on file Occupation Industry Job Start Date Job End Date Not on file Not on file Not on file Not on file documented as of this encounter Plan of Treatment Not on file documented as of this encounter Visit Diagnoses Not on filedocumented in this encounter Additional Health Concerns Assessment Noted Time PHQ-9 Depression Total Score: 3 12/07/19 20 12:00 PM CDT documented as of this encounter Care Teams Corporate Investigator Relationship Specialty Start Date End Date Len Tran MD [address] [place] [address] PCP - General 09/07/15 documented as of this encounter
[2024-11-29 16:38] VITALS: BP 142/83; PULSE 99; RESP 25; O2SAT 100
--- OUTSIDE RECORDS SUMMARY | 2024-11-29 17:33 | XMS_ITS | Clinical Summary ---
Author Organization [facility] [employer] Address [address] [place] [address] Care Team Providers Care Bookmobile Clerk Name Role Phone Len Tran MD Primary Care Provider [phone] Source Comments [facility] [employer],non-owned Affiliates and Associated Physician Practices is amultiple site organization consisting of ambulatory clinics and hospital sitesin [place], [place], [place] and [place]. This disclosure is being madepursuant to the Care Everywhere program and may not contain all information available regarding this patient. Last updated 18.[facility] [employer] Allergies Active Allergy Reactions Criticality Noted Date [...] Description 02/28/2025 2:15 PM CDT [facility] - TEST DEVELOPMENT ENGINEER [address] [place] [address] Roya Kimble MD [address] [place] [address] Health Maintenance Due Date Last [...] CDT) Case Report Gynecologic Cytology Report Case: [id number] Authorizing Provider: Roya Kimble, Collected: 06/02/2023 01:51 PM Ordering Location: [facility] - Received: 06/03/2023 12:36 PM [...] 3:22 PM CDT [facility] Interpretation STATE FIRE MARSHAL Negative for intraepithelial lesion or malignancy. 06/06/2023 3:22 PM CDT [facility] Pap Footnote The Pap Smear is a screening test. False positive and false negative results occur. Negative results do not preclude abnormalities, thus clinical correlation is required. This specimen was evaluated by the ThinPrep Imaging System along with an additional manual rescreening by a field observer and/or pathologist. 06/06/2023 3:22 PM CDT [facility] Embedded Images 3:22 PM CDT [facility] Pathology/Cytolo gy MISCELLANEOUS SAMPLES / Unknown 06/02/2023 1:51 PM CDT 06/03/2023 12:36 PM CDT Roya Kimble MD LAB - PATHOL OGY/CYTOLOGY ORDERABLES [facility] [address] [phone] * (ABNORMAL) COMPREHENSIVE METABOLIC PANEL (05/09/2023 5:29 [...] - CHEMISTRY OR DERABLES Performing Organization Address City/State/[facility] Co de Phone Number [facility] [address] [place] [address] from Last 3 Months or Most Recently Relevant to Health Maintenance Care Teams Bookmobile Clerk Relationship Specialty Start Date End Date PrelutskLen tracy MD [address] [place] [address] PCP - General Internal Medicine 10/25/17
--- OUTSIDE RECORDS SUMMARY | 2024-11-29 17:33 | XMS_ITS | Encounter Summary ---
Author Organization [facility] Address [address] [place] [address] Phone Care Team Providers Care Enamel Pulverizer Name Role Phone Len Tran MD Primary Care Provider [phone] Murphy Osorio MD Unavailable Eli Phillips NP Unavailable [phone] Barron Rico DO Unavailable [phone] Judie Starks Unavailable Brenda Loomis MD Unavailable [phone] Francisco Javier Curry MD Unavailable [phone] Unique Dupont MD Unavailable Adina Taylor DNP Unavailable [phone] Encounter Details Date Type Department Care Team (Late st Contact Info) Description 11/24/2024 Orders Only [facility] [address] [place] [address] Judie Starks PA [address] [place] [address] Social History Tobacco Use Types [...] on file 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 Gender Identity Female 09/25/2022 5:40 PM PERINATAL BREASTFEEDING ASSISTANT Sexual Orientation Bisexual 09/25/2022 5: 40 PM PERINATAL BREASTFEEDING ASSISTANT documented as of this encounter Plan of Treatment Not on file documented as of this encounter Visit Diagnoses Not on filedocumented in this encounter Discontinued Medications Medication Sig Discontinue Reason Start Date End Da te adalimumab-adaz 40 mg/0.4 mL pen injector Inject 40 mg under the skin every 14 (fourteen) days Duplicate order 11/17/2024 11/24/2024 documented as of this encounter Care Teams Enamel Pulverizer Relationship Specialty Start Date End Date PreLen mascorro MD [address] [place] [address] PCP - General 12/06/16 Murphy Osorio MD [address] [place] [address] Consulting Physician Rheumatology 07/16/22 Eli Phillips, ROBI [address] [place] [address] Nurse Practitioner 10/03/22 Barron Rico DO [address] [place] [address] Primary Eye Care Provider Optometry 10/22/22 Judie Starks PA [address] [place] [address] Physician Lead Pony Rider Rheumatology 10/22/22 Brenda Loomis MD [address] [place] [address] Chamber Walker Hematology 10/22/22 Francisco Javier Curry MD [address] [place] [address] Phys Asst Gastroenterology 11/05/22 [place] [address] [address] [address] [place] [address] Consulting Physician Pain Management 01/20/24 Adina Taylor DNP [address] [place] [address] Nurse Practitioner Neurology 07/16/24 documented as of this encounter
--- OUTSIDE RECORDS SUMMARY | 2024-11-29 17:33 | XMS_ITS | Patient Health Summary ---
Author Organization [facility] [employer] Address [address] [place] [address] Care Team Providers Care Conductor Sleeping Car Name Role Phone Len Tran MD Primary Care Provider [phone] Note from [facility],non-owned Affiliates and Associated Physician Practices is amultiple site organization consisting of ambulatory clinics and hospital sitesin [place], [place], [place] and [place]. This disclosure is being madepursuant to the Care Everywhere program and may not contain all information available regarding this patient. Last updated 18.[facility] Allergies * Cosyntropin(Unknown) * Sulfa Drugs * [...] Human Papilloma Interp 06/04/2023 11:19 AM CDT [facility] Comment:High Risk Human Gianni lloma Virus was Not Detected. Pathology/Cytolo gy MISCELLANEOUS SAMPLES / Unknown 06/02/2023 1:51 PM CDT 06/03/2023 12:36 PM CDT [facility] 06/04/2023 11:19 AM CDT [...] MICROB IOLOGY ORDERABLES [facility] [address] [phone] * PAP IMAGE-GUIDED W HPV (06/02/2023 1:51 PM CDT) Case Report Gynecologic Cytology Report Case: [id number] Authorizing Provider: Roya Kimble, Collected: 06/02/2023 01:51 PM Ordering Location: [facility] - Received: 06/03/2023 12:36 PM [...] 3:22 PM CDT [facility] Interpretation FOUNDRY EQUIPMENT MECHANIC Negative for intraepithelial lesion or malignancy. 06/06/2023 3:22 PM CDT [facility] Pap Footnote The Pap Smear is a screening test. False positive and false negative results occur. Negative results do not preclude abnormalities, thus clinical correlation is required. This specimen was evaluated by the Sina Weibo Imaging System along with an additional manual rescreening by a airplane coverer and/or pathologist. 06/06/2023 3:22 PM CDT [facility] Embedded Images 3:22 PM CDT [facility] Pathology/Cytolo gy MISCELLANEOUS SAMPLES / Unknown 06/02/2023 1:51 PM CDT 06/03/2023 12:36 PM CDT Roya Kimble MD LAB - PATHOL OGY/CYTOLOGY ORDERABLES Performing Organization Address City/State/[facility] Co de Phone Number [facility] [address] [phone] * US PELVIS W/TRANSVAG & DOPPLER (NON [...] transvaginal pelvic ultrasound was performed by the tannery worker with DICOM image capture. Grayscale images were [...] and transvaginal pelvic ultrasound wasperformed by the tannery worker with DICOM image capture. Grayscale images were [...] Yellow Straw, Yellow 05/09/2023 5:51 PM CDT [facility] Clarity UA Slt Cloudy(A) Clear 05/09/2023 5:51 PM CDT [facility] Glucose UA Negative Negative 05/09/2023 5:51 PM CDT [facility] Bilirubin UA Negative Negative 05/09/2023 5:51 PM CDT [facility] Ketone UA Negative Negative 05/09/2023 5:51 PM CDT [facility] Specific [place] UA 1.006 1.005 - 1.030 05/09/2023 5:51 PM CDT [facility] Blood UA 1+(A) Negative 05/09/2023 5:51 PM CDT [facility] pH UA 6.0 5.0 - 8.0 pH 05/09/2023 5:51 PM CDT [facility] Protein UA Negative Negative 05/09/2023 5:51 PM CDT [facility] Urobilinogen UA Negative Negative mg/dL 05/09/2023 5:51 PM CDT [facility] Nitrite UA Negative Negative 05/09/2023 5:51 PM CDT [facility] Leukocyte UA Negative Negative 05/09/2023 5:51 PM CDT [facility] Urine Microscopy Urine microscopy to follow 05/09/2023 5:51 PM CDT [facility] Urine URINE SPECIMEN OBTAINED BY CLEAN CATCH PROCEDURE / Unknown Collection / Unknown 05/09/2023 5:44 PM CDT 05/09/2023 5:46 PM CDT Narrative [facility] - 05/09/2023 5:51 PM CDT Bree London PA-C LAB - URINALYSIS O RDVICTORINA Performing Organization Address City/State/[facility] Co de Phone Number [facility] [address] [place] [address] * HCG URINE QUALITATIVE (05/09/2023 5:44 PM CDT) hCG Qualitative Urine Negative Negative 05/09/2023 5:54 PM CDT [facility] Urine URINE / Unknown Collection / Unknown 05/09/2023 5:44 PM CDT 05/09/2023 5:46 PM CDT Bree London PA-C LAB - URINALYSIS O RDERABLES Performing Organization Address [facility]/ZIP Co de Phone Number [facility] [address] [place], [place] [id number] * URINE MICROSCOPIC ONLY (05/09/2023 5:44 PM CDT) RBC UA 0-2 0 - 5 # /hpf 05/09/2023 5:55 PM CDT [facility] WBC UA 0-5 0 - 5 # /hpf 05/09/2023 5:55 PM CDT [facility] Bacteria UA None Seen None Seen 05/09/2023 5:55 PM CDT [facility] Squamous Epithelial Cells 3-5 0 - 5 /hpf 05/09/2023 5:55 PM CDT [facility] Urine URINE SPECIMEN OBTAINED BY CLEAN CATCH PROCEDURE / Unknown Collection / Unknown 05/09/2023 5:44 PM CDT 05/09/2023 5:46 PM CDT Narrative [facility] - 05/09/2023 5:55 PM CDT Bree London PA-C LAB - URINALYSIS O RDERABLES Performing Organization Address [facility] Co de Phone Number [facility] [address] [place], [place] [id number] * CBC W AUTO DIFFERENTIAL (05/09/2023 5:29 PM CDT) WBC 8.7 4.4 - 10.7 x10E9/L 05/09/2023 5:38 PM CDT [facility] WBC Corrected 05/09/2023 5:38 PM CDT [facility] RBC 4.32 3.80 - 5.20 x10E12/L 05/09/2023 5:38 PM CDT [facility] Hemoglobin 13.3 12.0 - 15.6 gm/dL 05/09/2023 5:38 PM CDT [facility] Hematocrit 40.9 35.9 - 45.5 % 05/09/2023 5:38 PM CDT [facility] MCV 94.7 80.7 - 98.3 fl 05/09/2023 5:38 PM CDT [facility] MCH 30.8 26.7 - 34.0 pg 05/09/2023 5:38 PM CDT [facility] MCHC 32.5 30.8 - 35.9 gm/dL 05/09/2023 5:38 PM CDT [facility] Platelet Count 271 153 - 416 x10E9/L 05/09/2023 5:38 PM CDT [facility] RDW-CV 13.1 12.1 - 14.9 % 05/09/2023 5:38 PM CDT [facility] MPV 9.5 9.4 - 12.9 fl 05/09/2023 5:38 PM CDT [facility] Neutrophils % 70.4 44.0 - 73.0 % 05/09/2023 5:38 PM CDT [facility] Lymphocytes % 22.5 20.0 - 43.0 % 05/09/2023 5:38 PM CDT [facility] Monocytes % 5.6 5.0 - 13.0 % 05/09/2023 5:38 PM CDT [facility] Eosinophils % 0.7 0.0 - 6.0 % 05/09/2023 5:38 PM CDT [facility] Basophils % 0.6 0.0 - 2.0 % 05/09/2023 5:38 PM CDT [facility] Immature Granulocytes 0.2 0 - 1 % 05/09/2023 5:38 PM CDT [facility] Neutrophil Absolute 6.12 2.01 - 7.14 x10E9/L 05/09/2023 5:38 PM CDT [facility] Lymphocytes Absolute 1.96 1.07 - 3.94 x10E9/L 05/09/2023 5:38 PM CDT [facility] Monocytes Absolute 0.49 0.26 - 1.07 x10E9/L 05/09/2023 5:38 PM CDT [facility] Eosinophils Absolute 0.06 0 - 0.47 x10E9/L 05/09/2023 5:38 PM CDT [facility] Basophils Absolute 0.05 0 - 0.08 x10E9/L 05/09/2023 5:38 PM CDT [facility] Immature Granulocytes Absolute 0.02 0.00 - 0.06 x10E9/L 05/09/2023 5:38 PM CDT [facility] nRBC Auto 0 /100 WBC 05/09/2023 5:38 PM CDT [facility] Blood BLOOD SPECIMEN / Unknown Venipuncture / Unknown 05/09/2023 5:29 PM CDT 05/09/2023 5:34 PM CDT Bree London PA-C LAB - HEMATOLOGY O RDERABLES [facility] [address] [place], [place] [id number] * (ABNORMAL) COMPREHENSIVE METABOLIC PANEL (05/09/2023 5:29 PM CDT) Glucose 114(H) 70 - 105 mg/dL 05/09/2023 5:52 PM CDT [facility] Sodium 137 136 - 145 mmol/L 05/09/2023 5:52 PM CDT [facility] Potassium 3.6 3.5 - 5.1 mmol/L 05/09/2023 5:52 PM CDT [facility] Chloride 107 98 - 107 mmol/L 05/09/2023 5:52 PM CDT [facility] CO2 19(L) 22 - 29 mmol/L 05/09/2023 5:52 PM CDT [facility] Calcium 9.2 8.4 - 10.4 mg/dL 05/09/2023 5:52 PM CDT [facility] Anion Gap 11 6 - 16 mmol/L 05/09/2023 5:52 PM CDT [facility] BUN 5(L) 5.3 - 18.7 mg/dL 05/09/2023 5:52 PM CDT [facility] Creatinine 0.90 0.57 - 1.11 mg/dL 05/09/2023 5:52 PM CDT [facility] Alkaline Phosphatase 86 40 - 150 U/L 05/09/2023 5:52 PM CDT [facility] ALT 18 0 - 55 U/L 05/09/2023 5:52 PM CDT [facility] AST 21 5 - 34 U/L 05/09/2023 5:52 PM CDT [facility] Protein Total 8.3 6.4 - 8.3 gm/dL 05/09/2023 5:52 PM CDT [facility] Albumin 4.1 3.4 - 5.0 gm/dL 05/09/2023 5:52 PM CDT [facility] Bilirubin Total 0.6 0.2 - 1.2 mg/dL 05/09/2023 5:52 PM CDT [facility] eGFR by CKD-EPI 82(L) >=90 mL/min/1.7 3 m2 05/09/2023 5:52 PM CDT [facility] Blood BLOOD SPECIMEN / Unknown Venipuncture / Unknown 05/09/2023 5:29 PM CDT 05/09/2023 5:34 PM CDT Bree London PA-C LAB - CHEMISTRY OR DERABLES [facility] [address] [place] [address] * INFLUENZA A+B - POINT OF CARE (AMB) (10/25/2017) Influenza A Antigen Rapid Negative Negative Influenza B Antigen Rapid Negative Negative Influenza Internal Control positive NEGATIVE - POSITIVE Influenza Lot Number [id number] Influenza Expiration Date 07/14/2019 Other NASOPHARYNGEAL SWAB / Unknown 10/25/2017 Ebonie Jj APRN-POWER PLANT INSPECTOR LAB - POINT OF CARE ORDERABLES * CYTOLOGY SMEAR PAP THIN PREP (08/23/1998 11:55 AM HEDGE FUND MANAGER) Only the most recent of2 resultswithin the time period is included. Result CASE NUMBER [id number] Comment: ORDERING PHYSICIAN DENISE SANTO SPECIMEN TYPE PAP Smear Date 08/23/1998 Procedure Cervical/Endocervical, 1 Vial for Thin Prep Received Specimen Adequacy Satisfactory for Evaluation Categorization Within Normal Limits Snomed. 09/04/1998 1627 <1> Cable Operator Milena Luis(ASCP) Pathologist. Chan Martínez M.D. PAP Footnote The PAP smear is only a screening procedure to aid in the detection of cervical cancer and its precursors. It is not a diagnostic procedure and should not be used as the sole means to detect cervical cancer. Both false negative and false positive results have been experienced. MISCELLANEOUS SAMPLES / Unknown 08/23/1998 11:55 AM HEDGE FUND MANAGER 09/01/1998 11:55 AM HEDGE FUND MANAGER Historical Provider LAB - PATHOLOGY/C YTOLOGY ORDERABLES Care Teams Conductor Sleeping Car Relationship Specialty Start Date End Date Len Tran MD [address] [place] [address] PCP - General Internal Medicine 10/25/17
--- OUTSIDE RECORDS SUMMARY | 2024-11-29 17:33 | XMS_ITS | Referral Summary ---
Author Organization [facility] al Address [address] [place] [address] Care Team Providers Care Chief Internal Auditor Name Role Phone Len Tran MD Primary Care Provider [phone] Murphy Osorio MD Unavailable [phone] Eli Phillips NP Unavailable Barron Rico DO Unavailable [phone] Judie Starks Unavailable Brenda Loomis MD Unavailable Francisco Javier Curry MD Unavailable Unique Dupont MD Unavailable Adina Taylor DNP Unavailable [phone] Encounters Date Type Department Care Team Description 11/24/2024 Orders Only [facility] [address] [place] [phone] Judie Starks PA 11/24/2024 Telephone [facility] [address] [place] [phone] Sukhdev Diaz Script Error 11/12/2024 Telephone [facility] [address] [place] [phone] Sukhdev Diazira denied 11/09/2024 Results Follow-Up [facility] [address] [place] [phone] Murphy Osorio MD 11/08/2024 Telephone [facility] [address] [place] [phone] Judie Starks PA 11/08/2024 8:30 AM CLINICAL SAFETY MANAGER Office Visit [facility] [address] [place] [address] Judie Starks PA 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) (Primary Dx); Encounter for long-term (current) use of medications; Nausea and vomiting, unspecified vomiting type 10/13/2024 6:02 PM CLINICAL SAFETY MANAGER - 10/13/2024 11:25 PM [facility] Emergency [facility] Emergency Department [address] [place] [address] Muna John MD Vomiting and diarrhea (Primary Dx); Anemia, unspecified type Discharge Disposition: Discharge to home or self care 10/05/2024 Orders Only [facility] Ophthalmology [facility] [address]th [place] [address] Tracey Stovall MD Idiopathic intracranial hypertension (Primary Dx); 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; Papilledema 09/06/2024 Telephone [facility] Neuro Sleep [address] [facility] 6th [address] [place] [address] Adina Taylor DNP 09/06/2024 Orders Only [facility] Neuro Sleep [address] [facility] [address] [facility] 6th [address] [place] [address] Adina Taylor DNP JENNIFER (obstructive sleep apnea) (Primary Dx) from Last 3 Months Allergies Active Allergy Reactions Criticality Noted Date Comments Cosyntropin Unknown 12/21/2017 Other reaction(s): Unknown Hymenoptera Allergenic Extract Swelling Medium 09/16/2019 Sulfasalazine Palpitations,Unknown Low 10/16/2012 Medications albuterol sulfate 90 mcg/actuation aerosol [facility] breath activated Inhale 2 puffs every 6 [...] 11/08/2024 Assessment & Plan (11/08/2024 9:00 AM CLINICAL SAFETY MANAGER): Advised pt to contact her gi and [...] 11/04/2022 Assessment & Plan (11/04/2022 5:31 PM CLINICAL SAFETY MANAGER): Start PT. Osteoarthritis of both knees 11/04/2022 Assessment & Plan (11/04/2022 5:32 PM CLINICAL SAFETY MANAGER): Check bilat knee xrays. Start PT. Discussed [...] 08/26/2022 Assessment & Plan (09/30/2022 7:47 AM CLINICAL SAFETY MANAGER): H/H 9.6-31.1. Her ferritin and iron are [...] iron. Assessment & Plan (08/26/2022 1:50 PM CLINICAL SAFETY MANAGER): H/H 9.6-31.1 Will check anemia panel. Has [...] examination. Assessment & Plan (11/08/2024 8:56 AM CLINICAL SAFETY MANAGER): Low cdai. Greatly improved since we changed [...] wrist. Assessment & Plan (10/16/2023 10:13 AM CLINICAL SAFETY MANAGER): Mod cdai. Having more joint pain since last visit, will see if insurance will approve humira weekly. Today she was given 2 boxes of humira to use one injection weekly. She was informed of increased risk of infection with humira weekly. F/u in 1 month to re-evaluate. If she continues to flare up in [facility] we can increase her imuran from [...] wrist. Assessment & Plan (08/01/2023 8:40 AM CLINICAL SAFETY MANAGER): Low cdai. Not worse since last visit. Has improved on humira and imuran. If she flares up in [facility] we can increase her imuran from [...] wrist. Assessment & Plan (11/04/2022 5:30 PM CLINICAL SAFETY MANAGER): High cdai. Failing stelara. Will stop it [...] wrist. Assessment & Plan (09/30/2022 9:47 AM CLINICAL SAFETY MANAGER): Moderate CDAI. Tolerating imuran 50mg po every [...] wrist. Assessment & Plan (08/26/2022 3:07 PM CLINICAL SAFETY MANAGER): Low moderate CDAI today. Has previous diagnosis [...] wrist. Assessment & Plan (08/12/2022 12:49 PM CLINICAL SAFETY MANAGER): Low moderate CDAI. Has previous hx of [...] 08/12/2022 Assessment & Plan (11/08/2024 7:25 AM CLINICAL SAFETY MANAGER): HLA B27 neg 11/2020 HLA B51 negative [...] 11/04/2022. Assessment & Plan (10/16/2023 10:14 AM CLINICAL SAFETY MANAGER): HLA B27 neg 11/2020 HLA B51 negative [...] 11/04/2022. Assessment & Plan (08/01/2023 8:40 AM CLINICAL SAFETY MANAGER): HLA B27 neg 11/2020 HLA B51 negative [...] 11/04/2022. Assessment & Plan (11/04/2022 5:30 PM CLINICAL SAFETY MANAGER): HLA B27 neg 11/2020 HLA B51 negative [...] 11/04/2022. Assessment & Plan (09/30/2022 7:53 AM CLINICAL SAFETY MANAGER): HLA B27 neg 11/2020 HLA B51 negative 07/2022 Heb B negative 07/2022 Hep C Ab + but confirmatory Heb C RNA PCR negative 07/2022 Avise 07/2022:Anti thyroglobulin. Anti cardiolipin IgG Quant gold neg 07/2022 TPTM wnl 16 on 07/2022 Cxr 08/21---clear lungs but 9cm hiatal hernia suspected. Assessment & Plan (08/26/2022 10:08 AM CLINICAL SAFETY MANAGER): HLA B27 neg 11/2020 HLA B51 negative 07/2022 Heb B negative 07/2022 Hep C Ab + but confirmatory Heb C RNA PCR negative 07/2022 Avise 07/2022:Anti thyroglobulin. Anti cardiolipin IgG Quant gold neg 07/2022 TPTM wnl 16 on 07/2022 Cxr 08/21---clear lungs but 9cm hiatal hernia suspected. Assessment & Plan (08/12/2022 8:18 AM CLINICAL SAFETY MANAGER): HLA B27 neg 11/2020 Crohn's disease with [...] control. Assessment & Plan (08/26/2022 9:53 AM CLINICAL SAFETY MANAGER): Seekrystian jama on Stelara. Assessment & Plan (08/12/2022 12:49 PM CLINICAL SAFETY MANAGER): Gt jama on Stelara. Intranasal ulcers 08/12/2022 Assessment & Plan (08/12/2022 12:50 PM CLINICAL SAFETY MANAGER): Check serologies. Chronic pain of both knees 08/12/2022 Assessment & Plan (09/30/2022 7:43 AM CLINICAL SAFETY MANAGER): Normal bilat knee xrays. If symptoms worse will start PT and consider MRI. Assessment & Plan (08/26/2022 1:54 PM CLINICAL SAFETY MANAGER): Normal bilat knee xrays. If symptoms worse will start PT and consider MRI. Assessment & Plan (08/12/2022 12:50 PM CLINICAL SAFETY MANAGER): Check bilat knee Xrays. Arthritis 04/02/2022 Overview (04/02/2022): Secondary to Crohn's Marijuana use 04/02/2022 Hypokalemia 02/18/2022 Intractable nausea and vomiting 02/18/2022 Leukocytosis (leucocytosis) 02/18/2022 Moderate episode of recurrent major depressive d isorder 02/17/2020 Spinal instabilities, lumbar region 12/22/2018 Overview (12/22/2018): Added automatically from request for surgery [id number] Assessment & Plan (09/30/2019 11:12 AM CLINICAL SAFETY MANAGER): Assessment Healing fusion L4-5 and L5-S1 Plan [...] (12/22/2018): Added automatically from request for surgery [id number] Assessment & Plan (04/21/2019 11:34 AM CDT): [...] (12/22/2018): Added automatically from request for surgery [id number] Herniated nucleus pulposus, L5-S1 12/22/2018 Overview (12/22/2018): Added automatically from request for surgery [id number] Former smoker 11/18/2018 Other intervertebral disc displacement, lumbar r egion 11/18/2018 Assessment & Plan (11/18/2018 9:58 AM CLINICAL SAFETY MANAGER): Assessment Segmental instability L4-5 L5-S1 central disc [...] on file Legal Sex Female 7:58 PM CLINICAL SAFETY MANAGER Gender Identity Female 09/25/2022 5:40 PM CLINICAL SAFETY MANAGER Sexual Orientation Bisexual 09/25/2022 5: 40 PM CLINICAL SAFETY MANAGER Last Filed Vital Signs Vital Sign Reading Time Taken Comments Blood Pressure 122/84 11/08/2024 8:36 AM CLINICAL SAFETY MANAGER Pulse 78 11/08/2024 8:36 AM CLINICAL SAFETY MANAGER Temperature 36.4 C (97.6 F) 10/13/2024 5:55 PM CLINICAL SAFETY MANAGER Respiratory Rate 18 10/13/2024 11:20 PM CLINICAL SAFETY MANAGER Oxygen Saturation 97% 11/08/2024 8:36 AM CLINICAL SAFETY MANAGER Inhaled Oxygen Concentration - - Weight 127 kg (280 lb) 11/08/2024 8:36 AM CLINICAL SAFETY MANAGER Height 167.6 cm (5' 6 ) 11/08/2024 8:36 AM CLINICAL SAFETY MANAGER Body Mass Index 45.19 11/08/2024 8:36 AM CLINICAL SAFETY MANAGER Plan of Treatment Not on file Medical Devices Implanted Type Area Paleologist Device Identifier Shelf Expiration Date Model / Serial / Lot Medtronic Sofamor Danek [id number] Infuse 18mm 26mm Absorbable Sponge Sterile Water Syringe Needle - [id number] Implanted:Qty: 1 on 02/01/2019 by Len Dorantes MD at [facility] N/A: Spine Lumbar Medtronic Sofamor Danek 09/21/2020 [id number] / / [id number] Medtronic Sofamor Danek [id number] Infuse 14mm 23mm Absorbable Sponge Sterile Water Syringe Needle - [id number] Implanted:Qty: 1 on 02/01/2019 by Len Dorantes MD at [facility] N/A: Spine Lumbar Medtronic Sofamor Danek 12/20/2020 [id number] / / [id number] [employer] 60-24 6mm 24mm Spine Lumbar Screw Bone Nonsterile - [id number] Implanted:Qty: 8 on 02/01/2019 by Len Dorantes MD at [facility] N/A: Spine Lumbar [employer] 2560-24 / / Ne[employer] 34-M29-34-5 Contact [id number] 8d Spacer Spinal Peek Sterile Latex Free - [id number] Implanted:Qty: 1 on 02/01/2019 by Len Dorantes MD at [facility] N/A: Spine Lumbar [employer] [id number] 07/10/2023 34-A30-10- 8 / / [id number] Description:L5 - S1 [employer] 25-Lp-34 34mm Spine Lumbar Anterior Plate Bone Nonsterile - [id number] Implanted:Qty: 1 on 02/01/2019 by Len Dorantes MD at [facility] N/A: Spine Lumbar [employer] 25-LP-34 / / Description:L5 - S1 [employer] 34-Z35-83-4 Contact Option Vbr [id number] Lordosis Back Cutting Teeth - [id number] Implanted:Qty: 1 on 02/01/2019 by Len Dorantes MD at [facility] N/A: Spine Lumbar [employer] [id number] 07/10/2023 34-A30-12- 4 / / [id number] Description:L 4-L5 [employer] 25-Lp-36 36mm Spine Lumbar Anterior Plate Bone Nonsterile - [id number] Implanted:Qty: 1 on 02/01/2019 by Len Dorantes MD at [facility] N/A: Lumbar-Sac ral Spine [employer] 25-LP-36 / / Procedures Procedure Name Priority Date/Time Associated Diagnosis Comments LIPASE Routine 11/08/2024 9:06 AM CLINICAL SAFETY MANAGER AMYLASE Routine 11/08/2024 9:06 AM CLINICAL SAFETY MANAGER COMPREHENSIVE METABOLIC PANEL Routine 11/08/2024 9:06 AM CLINICAL SAFETY MANAGER 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) Encounter for long-term (current) use of medications CRP (ACUTE PHASE) Routine 11/08/2024 9:0 6 AM CLINICAL SAFETY MANAGER 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) Encounter for long-term (current) use of medications CBC WITH AUTO DIFFERENTIAL Routine 11/08/2024 9:06 AM CLINICAL SAFETY MANAGER 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) Encounter for long-term (current) use of medications ERYTHROCYTE SEDIMENTATION RATE Routine 11/08/2024 9:06 AM CLINICAL SAFETY MANAGER 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) Encounter for long-term (current) use of medications URINALYSIS, MICROSCOPIC ONLY STAT 10/13/2024 10:04 PM CLINICAL SAFETY MANAGER URINALYSIS AND REFLEX TO MICROSCOPIC AND CULTURE STAT 10/13/2024 10:04 PM CLINICAL SAFETY MANAGER POCT HCG, URINE Routine 10/13/2024 10:[address] ABDOMEN PELVIS W CONTRAST ED 10/13/2024 8:16 PM CLINICAL SAFETY MANAGER EGFR STAT 10/13/2024 6:04 PM CLINICAL SAFETY MANAGER DIFFERENTIAL AUTO STAT 10/13/2024 6:0 4 PM CLINICAL SAFETY MANAGER COMPREHENSIVE METABOLIC PANEL STAT 10/13/2024 6:04 PM CLINICAL SAFETY MANAGER CBC WITH AUTO DIFFERENTIAL STAT 10/13/2024 6:04 PM CLINICAL SAFETY MANAGER PAP AND HIGH RISK HPV, REFLEX TO GENOTYPING Routine 12/05/2020 3:07 PM CDT Routine gynecological examination from Last 3 Months or Most Recently Relevant to Health Maintenance Results * (ABNORMAL) CBC with auto differential (11/08/2024 9:06 AM CLINICAL SAFETY MANAGER) WBC 4.9 3.8 - 10.8 Thousand/u L [...] [facility] Blood 11/08/2024 9:06 AM CLINICAL SAFETY MANAGER 11/08/2024 9:09 AM CLINICAL SAFETY MANAGER Judie REYNOLDS LAB BLOOD ORDERAB LES Final Result Performing Organization Address [facility] Co de Phone Number [facility] [address] [place] [address] * Erythrocyte sedimentation rate (11/08/2024 9:06 AM CLINICAL SAFETY MANAGER) Erythrocyte sedimentation rate 11 < OR = 20 mm/h [facility] Blood 11/08/2024 9:06 AM CLINICAL SAFETY MANAGER 11/08/2024 9:09 AM CLINICAL SAFETY MANAGER Judie REYNOLDS LAB BLOOD ORDERAB LES Final Result Performing Organization Address [facility] de Phone Number [facility] [address] [facility] [place] [address] * CRP (acute phase) (11/08/2024 9:06 AM CLINICAL SAFETY MANAGER) C-RP <3.0 <8.0 mg/L [facility] Blood 11/08/2024 9:06 AM CLINICAL SAFETY MANAGER 11/08/2024 9:09 AM CLINICAL SAFETY MANAGER Judie REYNOLDS LAB BLOOD ORDERAB LES Final Result Performing Organization Address [facility] Co de Phone Number [facility] [address] [facility] [place] [address] * Lipase (11/08/2024 9:06 AM CLINICAL SAFETY MANAGER) LIPASE 21 7 - 60 U/L [facility] 11/08/2024 9:06 AM CLINICAL SAFETY MANAGER 11/08/2024 9:09 AM CLINICAL SAFETY MANAGER Judie REYNOLDS LAB BLOOD ORDERAB LES Final Result Performing Organization Address City/[facility]/ZIP Co de Phone Number [facility] [address] [place] [address] * (ABNORMAL) Amylase (11/08/2024 9:06 AM CLINICAL SAFETY MANAGER) Pathologist [facility] Amylase 15(L) 21 - 101 U/L [facility] 11/08/2024 9:06 AM CLINICAL SAFETY MANAGER 11/08/2024 9:09 AM CLINICAL SAFETY MANAGER us Judie REYNOLDS LAB BLOOD ORDERAB LES Final Result Performing Organization Address [facility] Co de Phone Number [facility] [address] [place] [address] * (ABNORMAL) Comprehensive metabolic panel (11/08/2024 9:06 AM CLINICAL SAFETY MANAGER) Glucose 100(H) 65 - 99 mg/dL [facility] [...] [facility] Blood 11/08/2024 9:06 AM CLINICAL SAFETY MANAGER 11/08/2024 9:09 AM CLINICAL SAFETY MANAGER us Judie REYNOLDS LAB BLOOD ORDERAB LES Final Result [facility] [place] [address] [address] * (ABNORMAL) Urinalysis reflex to microscopic and culture Urine (10/13/2024 10:04 PM CLINICAL SAFETY MANAGER) Color, ur Straw Yellow Clarity, ur Clear Clear [facility] Specific gravity, ur 1.023 1.003 - 1.030 [facility] pH, urine 7.5 [facility] Comment: Interpretive Data U rine pH is affected by diet, medications, systemic acid-base disturbances, and renal tubular function. pH may affect urinary stone formation. For example, urine pH below 6.0 may help reduce the tendency for calcium phosphate stones and pH greater than 6.0 may reduce the tendency for uric acid stone formation. Source: [facility] Current Interpretive Data was last revised on 2017 Protein, ur ql Negative Negative [facility] Glucose, ur ql Trace(A) Negative [facility] Ketones, ur 1+(A) Negative [facility] Bilirubin, ur Negative Negative [facility] Blood, ur Trace(A) Negative [facility] Urobilinogen, ur <2.0 <2.0 mg/dL [facility] Nitrite, ur Negative Negative [facility] Leukocyte esterase, ur Negative Negative [facility] UA reflex comment Reflex to microscopic UA will be performed. [facility] Urine 10/13/2024 10:0 4 PM CLINICAL SAFETY MANAGER 10/13/2024 10:04 PM CLINICAL SAFETY MANAGER Muna John MD LAB MICROBIOLOGY - GENERAL ORDERABLES Final Result Performing Organization Address [facility] Co de Phone Number [facility] [address] [facility] [place] [address] * Urinalysis, microscopic only (10/13/2024 10:04 PM CLINICAL SAFETY MANAGER) WBC, ur 0-5 0 - 5 /HPF RBC, ur 0-2 0 - 2 /HPF [facility] Epithelial cells, squamous, ur 1-5 0 - 5 /HPF [facility] Culture Reflex Comment Reflex conditions for urine culture (WBC >10) not met. [facility] Urine 10/13/2024 10:0 4 PM CLINICAL SAFETY MANAGER 10/13/2024 10:22 PM CLINICAL SAFETY MANAGER Result [facility] Yared Kim MD LAB URINE ORDERABLES Final R esult Performing Organization Address [facility] de Phone Number [facility] [address] Department [place] [address] * POCT hCG, urine (10/13/2024 10:01 PM CLINICAL SAFETY MANAGER) HCG, ur, POC Negative Negative Lot Number [id number] QC Backgroud Clear Acceptable QC Control Line Acceptable Urine 10/13/2024 10:0 1 PM CLINICAL SAFETY MANAGER Result [facility] uMna John MD POINT OF CARE TEST ORDERAB LES Final Result * CT Abdomen Pelvis W Contrast (10/13/2024 8:16 PM CLINICAL SAFETY MANAGER) Anatomical Region Laterality Modality Body N/A Computed Tomogra phy 10/13/2024 8:10 PM CLINICAL SAFETY MANAGER Impressions 10/14/2024 6:17 AM CLINICAL SAFETY MANAGER 1. Completely collapsed colon with resultant wall prominence. No definite CT evidence of acute colitis 2. Moderate to large hiatal hernia 3. Subacute to chronic anterior left 6th rib fracture For the purposes of quality control specialist, this study was initially interpreted by teleradiology. There is no significant discrepancy. Electronically signed by: Caryl Zhu M.D. Narrative 10/14/2024 6:17 AM CLINICAL SAFETY MANAGER EXAM: CT abdomen and pelvis with contrast [...] rib fracture For the purposes of quality control specialist, this study was initially interpreted by teleradiology. There is no significant discrepancy. Electronically signed by: Caryl Zhu M.D. Muna John MD IMG CT PROCEDURES Final Re sult * eGFR (10/13/2024 6:04 PM CLINICAL SAFETY MANAGER) eGFR >90 >=60 mL/min/1. 73 m2 Comment: [...] last reviewed 2021. Blood 10/13/2024 6:04 PM CLINICAL SAFETY MANAGER 10/13/2024 6:42 PM CLINICAL SAFETY MANAGER Muna John MD LAB BLOOD ORDERABLES Final Result [facility] [address] Department [place] [address] * (ABNORMAL) Differential, auto (10/13/2024 6:04 PM CLINICAL SAFETY MANAGER) Neutrophil abs 7.0(H) 1.5 - 6.5 K/cumm Imm gran abs 0.0 0.0 - 0.1 K/cumm [facility] Lymphocyte abs 0.8 0.8 - 3.3 K/cumm [facility] Monocyte abs 0.3 0.2 - 0.8 K/cumm [facility] Eosinophil abs 0.0 0.0 - 0.5 K/cumm [facility] Basophil abs 0.0 0.0 - 0.1 K/cumm [facility] Neutrophil pct 85.9 % [facility] Comment: Interpretive Data Percent cell count reference ranges are not reported, since discordance with absolute values may lead to misinterpretation of CBC data. Current Interpretive Data was last revised on 2017. Imm gran pct 0.2 % [facility] Comment: Interpretive Data Percent cell count reference ranges are not reported, since discordance with absolute values may lead to misinterpretation of CBC data. Current Interpretive Data was last revised on 2017. Lymphocyte pct 9.8 % [facility] Comment: Interpretive Data Percent cell count reference ranges are not reported, since discordance with absolute values may lead to misinterpretation of CBC data. Current Interpretive Data was last revised on 2017. Monocyte pct 3.5 % [facility] Comment: Interpretive Data Percent cell count reference ranges are not reported, since discordance with absolute values may lead to misinterpretation of CBC data. Current Interpretive Data was last revised on 2017. Eosinophil pct 0.1 % [facility] Comment: Interpretive Data Percent cell count reference ranges are not reported, since discordance with absolute values may lead to misinterpretation of CBC data. Current Interpretive Data was last revised on 2017. Basophil pct 0.5 % [facility] Comment: Interpretive Data Percent cell count reference ranges are not reported, since discordance with absolute values may lead to misinterpretation of CBC data. Current Interpretive Data was last revised on 2017. Blood 10/13/2024 6:04 PM CLINICAL SAFETY MANAGER 10/13/2024 6:42 PM CLINICAL SAFETY MANAGER us Muna John MD LAB BLOOD ORDERABLES Final Result Performing Organization Address City/[facility]/ZIP Co de Phone Number [facility] [address] [employer] [place] [address] * (ABNORMAL) CBC with auto differential (10/13/2024 6:04 PM CLINICAL SAFETY MANAGER) Pathologist [facility] WBC 8.2 3.8 - 9.9 K/cumm Hgb 8.8(L) 11.9 - 15.5 g/dL [facility] Hct 31.2(L) 35.6 - 45.5 % [facility] Plt 342 150 - 400 K/cumm [facility] MPV 10.5 9.1 - 12.3 fL [facility] RBC 3.64(L) 3.90 - 5.20 M/cumm [facility] MCV 85.7 81.3 - 96.4 fL [facility] MCH 24.2(L) 27.1 - 33.3 pg [facility] MCHC 28.2(L) 32.3 - 35.7 g/dL [facility] RDW CV 17.4(H) 11.1 - 14.9 % [facility] RDW SD 53.9(H) 35.7 - 48.1 fL [facility] NRBC abs 0.00 0.00 - 0.01 K/cumm [facility] Blood Venous blood specimen / Unknown 10/13/2024 6:04 PM CLINICAL SAFETY MANAGER 10/13/2024 6:42 PM CLINICAL SAFETY MANAGER Muna John MD LAB BLOOD ORDERABLES Final Result [facility] [address] [place] [address] * (ABNORMAL) Comprehensive metabolic panel (10/13/2024 6:04 PM CLINICAL SAFETY MANAGER) Pathologist [facility] Sodium 142 135 - 145 mmol/L Potassium, pl 4.3 3.3 - 4.9 mmol/L [facility] Chloride 107 97 - 110 mmol/L [facility] CO2 23 22 - 32 mmol/L [facility] Anion gap 12 2 - 15 mmol/L [facility] BUN 6 6 - 25 mg/dL [facility] Creatinine 0.64 0.60 - 1.10 mg/dL [facility] Glucose 145 70 - 199 mg/dL [facility] Comment: Interpretive Data Fasting glucose >/= 126 [...] 2022. Calcium 8.4(L) 8.5 - 10.3 mg/dL [facility] Bilirubin, total 0.2 0.1 - 1.2 mg/dL [facility] Protein, pl 7.5 6.5 - 8.5 g/dL [facility] Albumin 4.3 3.5 - 5.0 g/dL [facility] Alk phos 113 40 - 130 Units/L [facility] ALT 20 7 - 45 Units/L [facility] AST 31 10 - 45 Units/L [facility] Comment:Slightly Hemolyzed S pecimen Blood Venous blood specimen / Unknown 10/13/2024 6:04 PM CLINICAL SAFETY MANAGER 10/13/2024 6:42 PM CLINICAL SAFETY MANAGER us Muna John MD LAB BLOOD ORDERABLES Final Result [facility] [address] Department [place] [address] * Pap and High Risk HPV, reflex to Genotyping (12/05/2020 3:07 PM CDT) Swab (Pap test) 12/05/2020 3 :07 PM CDT 12/07/2020 12:53 PM CDT Narrative PATHOLOGY [facility] - 12/08/2020 12:08 PM CDT [facility] results best viewed via link to PDF [address] [address] Tele: Bernadette Jama MD - [facility] CYTOLOGY REPORT Patient Name: ANTONIA ARANDA Address: [address] [place] [address] 63 Gender: F : 1980 (Age: 40) Service: Laboratory Location: Lab [facility] #: [id number] Patient Type: [facility] Lab Taken: 12/05/2020 Reported: 12/08/2020 Physician(s): Marjorie [...] LAB CYTOLOGY ORDERABLES F inal Result PATHOLOGY [facility] Laboratory Receiving [address] [place] [address] from Last 3 Months or Most Recently Relevant to Health Maintenance Insurance [employer] OPEN ACCESS CIGNA CIGNA OPEN ACCESS [employer] Advance Directives For more information, please contact: [phone] * Full Code (Latest Code Status on File) Date Activated Date Inactivated Comments 02/01/2019 1:47 PM 02/02/2019 3:38 PM Care Teams Chief Internal Auditor Relationship Specialty Start Date End Date Len Tran MD [address] [place] [address] PCP - General 12/06/16 Murphy Osorio MD [address] [place] [address] Consulting Physician Rheumatology 07/16/22 Eli Phillips NP [address] [place] [address] Nurse Practitioner 10/03/22 Barron Rico DO [address] [place] [address] Primary Eye Care Provider Optometry 10/22/22 Judie Starks PA [address] [place] [address] Physician Spotlight Operator Rheumatology 10/22/22 Brenda Loomis MD [address] [place] [address] Sticker Machine Operator Hematology 10/22/22 Francisco Javier Curry MD [address] [place], [place] [id number] Recreational Assistant Gastroenterology 11/05/22 [place] [address] [address] [address] [place] [address] Consulting Physician Pain Management 01/20/24 Adina Taylor DNP [address] [place] [address] Nurse Practitioner Neurology 07/16/24
--- OUTSIDE RECORDS SUMMARY | 2024-11-29 17:33 | XMS_ITS | Encounter Summary ---
Author Organization [facility] Address [address] [place] [address] Phone Care Team Providers Care Section Beamer Name Role Phone Len Tran MD Primary Care Provider [phone] Murphy Osorio MD Unavailable Eli Phillips FLIGHT PARAMEDIC Unavailable [phone] Barron Rico DO Unavailable [phone] Judie Starks Unavailable Brenda Loomis MD Unavailable Francisco Javier Curry MD Unavailable Ca Oliva DPT Unavailable Unique Dupont MD Unavailable Adina Taylor DNP Unavailable [phone] Encounter Details Date Type Department Care [...] on file Legal Sex Female 7:58 PM CURB SETTER HELPER Gender Identity Female 09/25/2022 5:40 PM CURB SETTER HELPER Sexual Orientation Bisexual 09/25/2022 5: 40 PM CURB SETTER HELPER documented as of this encounter Plan of [...] C. difficile suspected 10/13/2024 10/13/202410/14 3:05 AM CURB SETTER HELPER documented as of this encounter Care Teams Section Beamer Relationship Specialty Start Date End Date Len Tran MD [address] [place] [address] PCP - General 12/06/16 Murphy Osorio MD [address] [place] [address] Consulting Physician Rheumatology 07/16/22 Eli Phillips NP [address] [place] [address] Nurse Practitioner 10/03/22 Barron Rico DO [address] [place] [address] Primary Eye Care Provider Optometry 10/22/22 Judie Starks PA [address] [place] [address] Physician Bill Of Materials Clerk Rheumatology 10/22/22 Brenda Loomis MD [address] [place] [address] Cab Station Attendant Hematology 10/22/22 Francisco Javier Curry MD [address] [place] [address] Academic Program Specialist Gastroenterology 11/05/22 Ca Oliva DPT [address] [place], [place] [id number] Physical Therapist Physical Therapy 04/24/23 10/13/23 [place] [address] [address] [address] [place] [address] Consulting Physician Pain Management 01/20/24 Adina Taylor DNP [address] [place] [address] Nurse Practitioner Neurology 07/16/24 documented as of this encounter
--- OUTSIDE RECORDS SUMMARY | 2024-11-29 17:33 | XMS_ITS | Clinical Summary ---
Author Organization [facility] Address [address] [place] [address] Phone Care Team Providers Care District Branch Manager Name Role Phone Len Tran MD Primary Care Provider [phone] Allergies Active Allergy Reactions Criticality Noted Date [...] (General) Referring Provider: Marjorie Jeffrey MD [address] [facility] [address] [place] [address] Other: Problem Noted Date Diagnosed Date Intractable [...] Data STL ABSTRACTION Provider, Abstract 11/09/2024 Telephone [facility] [address] [facility] [address] [place] [address] Francisco Javier Curry MD Missed [...] How often do you attend chur or anglican services? Never 11/19/2019 Do you belong to any clubs o r organizations such as synagogue groups, unions, fraternal or athletic groups, or [...] Master's degree (e.g., MA, MS, Pauly, MEd, HELICOPTER MECHANIC, PRASHANT) 11/19/2019 Comments No Sex and Gender Information Value Date Recorded Sex Assigned at Not on file Legal Sex Female 5:52 AM UNDERWRITING SUPPORT SPECIALIST Gender Identity Not on file Sexual Orientation Not on file Occupation Industry Job Start Date Job End Date Not on file Not on file Not on file Not on file Last Filed Vital Signs Vital Sign Reading Time Taken Comments Blood Pressure 124/82 03/17/2023 3:56 PM CDT Pulse 70 03/17/2023 3:56 PM CDT Temperature 36.4 C (97.6 F) 11/13/2022 9:58 AM UNDERWRITING SUPPORT SPECIALIST Respiratory Rate 16 11/13/2022 10:20 AM UNDERWRITING SUPPORT SPECIALIST Oxygen Saturation 100% 11/13/2022 10:20 AM UNDERWRITING SUPPORT SPECIALIST Inhaled Oxygen Concentration - - Weight 125.2 [...] this topic Medical Devices Implanted Type Area Psychological Operations Officer Device Identifier Shelf Expiration Date Model / Serial / Lot Plate Clav Lcp 3.5mm Lt 083 - Sload Number [id number] Implanted:Qty: 1 on 09/16/2019 by Arie Price DO at [facility] Plate Left: Clavicle SYNTHES STRATEC 08 3S / LOAD NUMBER [id number] / STERILIZE D 9 Description:This Synthes natalie te only was processed on requisition [id number]. Screw St 3.5x12mm 204.812 - Sload Number 205 Implanted:Qty: 3 on 09/16/2019 by Arie Price DO at [facility] Screw Left: Clavicle SYNTHES STRATEC 204.812 / LOAD NUMBER 205 / STERILIZE D 12/[id number] Screw St 3.5x14mm 204.814 - Sload Number 205 Implanted:Qty: 1 on 09/16/2019 by Arie Price DO at [facility] Screw Left: Clavicle SYNTHES STRATEC 204.814 / LOAD NUMBER 205 / STERILIZE D 12/[id number] Screw St 3.5x16mm 204.816 - Sload Number 205 Implanted:Qty: 1 on 09/16/2019 by Arie Price DO at [facility] Screw Left: Clavicle SYNTHES STRATEC 204.816 / LOAD NUMBER 205 / STERILIZE D 12/[id number] Screw St 3.5x20mm 204.820 - Sload Number 205 Implanted:Qty: 1 on 09/16/2019 by Arie Price DO at [facility] Screw Left: Clavicle SYNTHES STRATEC 204.820 / LOAD NUMBER 205 / STERILIZE D 12/[id number] Procedures Procedure Name Priority Date/Time Associated Diagnosis [...] no mammographic or ultrasound correlate. Dictated from [facility] Procedure Note Elizabeth Borrego MD - 05/25/2015 [...] Advance Directives For more information, please contact: [phone] * Full Code (Latest Code Status on [...] 8:57 AM 04/16/2012 12:29 PM Care Teams District Branch Manager Relationship Specialty Start Date End Date Len Tran MD [address] [place] [address] PCP - General 09/07/15
--- OUTSIDE RECORDS SUMMARY | 2024-11-29 17:33 | XMS_ITS | Encounter Summary ---
Author Organization [facility] Address [address] [place] [address] Phone Care Team Providers Care Floor Care Technician Name Role Phone Len Tran MD Primary Care Provider [phone] Murphy Osorio MD Unavailable Eli Phillips NP Unavailable [phone] Barron Rico DO Unavailable [phone] Judie Starks Unavailable Brenda Loomis MD Unavailable [phone] Francisco Javier Curry MD Unavailable Unique Dupont MD Unavailable Adina Taylor DNP Unavailable [phone] Encounter Details Date Type Department Care Team (Late st Contact Info) Description 11/09/2024 Results Follow-Up [facility] [address] [place] [address] Murphy Osorio MD [address] [facility] [address] [place] [address] Social History Tobacco Use Types [...] on file Legal Sex Female 7:58 PM PURIFICATION OPERATOR HELPER Gender Identity Female 09/25/2022 5:40 PM PURIFICATION OPERATOR HELPER Sexual Orientation Bisexual 09/25/2022 5: 40 PM PURIFICATION OPERATOR HELPER documented as of this encounter Plan of Treatment Not on file documented as of this encounter Visit Diagnoses Not on filedocumented in this encounter Care Teams Floor Care Technician Relationship Specialty Start Date End Date Len Tran MD [address] [place] [address] PCP - General 12/06/16 Murphy Osorio MD [address] [place] [address] Consulting Physician Rheumatology 07/16/22 Eli Phillips NP [address] [place] [address] Nurse Practitioner 10/03/22 Barron Rico DO [address] [place] [address] Primary Eye Care Provider Optometry 10/22/22 Judie Starks PA [address] [place] [address] Physician Director Global Strategic Publisher Sales Rheumatology 10/22/22 Brenda Loomis MD [address] [place] [address] Aircraft Pneudraulic Systems Mechanic Hematology 10/22/22 Francisco Javier Curry MD [address] [facility] [address] [place] [address] Debt And Budget Counselor Gastroenterology 11/05/22 [place] [address] [address] [address] [place] [address] Consulting Physician Pain Management 01/20/24 Adina Taylor DNP [address] [place] [address] Nurse Practitioner Neurology 07/16/24 documented as of this encounter
--- OUTSIDE RECORDS SUMMARY | 2024-11-29 17:33 | XMS_ITS | Encounter Summary ---
Author Organization [facility] Address [address] [facility] [place] [address] Care Team Providers Care Forest Fire Prevention Specialist Name Role Phone Len Tran MD Primary Care Provider [phone] Reason for Visit * Reason Onset Date Comments Appointment 05/06/2023 Encounter Details Date Type Department Care Team (Late st Contact Info) Description 05/06/2023 Telephone [facility] - CUPOLA OPERATOR INSULATION [address] [place] [address] Rd [address] [place] [address] Roya Kimble MD [address] [place] [address] Appointment Social History Tobacco Use [...] Description 02/28/2025 2:15 PM CDT Office Visit [facility] - [facility]UPOL[facility] OPERATOR INSULATION [address] [facility] [address] [place] [address] Roya Kimble MD [address] [place] [address] documented as of this encounter Visit Diagnoses Not on filedocumented in this encounter Care Teams Forest Fire Prevention Specialist Relationship Specialty Start Date End Date Len Tran MD [address] [place] [address] PCP - General Internal Medicine 10/25/17 documented as of this encounter
--- OUTSIDE RECORDS SUMMARY | 2024-11-29 17:33 | XMS_ITS | Continuity of Care Document ---
Author Organization [facility] Address [address] [place] [address] [address] [place] [address] Phone Care Team Providers Care Medical Intern Name Role Phone Camilo PT, DPTJolanta Unavailable Unavailab le Procedures Procedure Date Therapeutic Activities Neuromuscular Re-Ed Therapeutic Exercise Therapeutic Activities Neuromuscular Re-Ed Therapeutic Activities Neuromuscular Re-Ed Therapeutic Activities Neuromuscular Re-Ed Manual Therapy Therapeutic Activities Neuromuscular Re-Ed Manual Therapy Therapeutic Activities Neuromuscular Re-Ed Manual Therapy PT Evaluation Moderate Complexity Therapeutic Activities Neuromuscular Re-Ed Therapeutic Exercise THERAPEUTIC EXERCISES NEUROMUSCULAR RE-ED FUNC ACTIVITY THERAPEUTIC EXERCISES NEUROMUSCULAR RE-ED THERAPEUTIC EXERCISES NEUROMUSCULAR RE-ED MANUAL THERAPY THERAPEUTIC EXERCISES NEUROMUSCULAR RE-ED FUNC ACTIVITY THERAPEUTIC EXERCISES NEUROMUSCULAR RE-ED FUNC ACTIVITY THERAPEUTIC EXERCISES NEUROMUSCULAR RE-ED FUNC ACTIVITY THERAPEUTIC EXERCISES NEUROMUSCULAR RE-ED FUNC ACTIVITY THERAPEUTIC EXERCISES NEUROMUSCULAR RE-ED FUNC ACTIVITY THERAPEUTIC EXERCISES NEUROMUSCULAR RE-ED FUNC ACTIVITY THERAPEUTIC EXERCISES NEUROMUSCULAR RE-ED PT EVALUATION THERAPEUTIC EXERCISES Advance Directives Directive Yes / No Effective Date File Name No Information Encounters Encounter Description Practice Location Reason(s) For Visit Diagnoses Date Provider Providers Copied on Encounter [address] [place] [address], [place], [place], [id number], tel:[phone] [facility] No Information 3 Camilo Jolanta. . Referring Provider: Murphy Osorio [address], [place], [address]. tel:[phone] [facility] [address] [place] [address], [id number], tel:[phone] [facility] No Information 3 Camilo Jolanta. . Referring Provider: Murphy Osorio, [address], [place], [address]. tel:[phone] [facility] [address] [place] [place] [address] [place] [address], [id number], tel:[phone] [facility] No Information 3 Camilo Jolanta. . Referring Provider: Murphy Osorio, [address], [place], [address]. tel:[phone] [facility] [address], [place], [place], [id number], tel:[phone] [facility] No Information 3 Simone dominguez . Referring Provider: Murphy Osorio [address], [place], [address]. tel:[phone] [facility] [address], [place], [place], [address], [place] tel:[phone] [facility] No Information 3 Camilo Jolanta. . Referring Provider: Murphy Osorio, [address], [place], [address]. tel:[phone] [facility] [address], [place], [place], [id number], [place] tel:[phone] [facility] No Information 3 Camilo Jolanta. . Referring Provider: Murphy Osorio, [address], [place], [address]. tel:[phone] [facility] [address], [place], [address], [place] tel:[phone] [facility] No Information 3 Camilo Jolanta. . Referring Provider: Murphy Osorio, [address], [place], [address]. tel:[phone] [facility] [address], [place], [place], [id number], [place] tel:[phone] [facility] No Information 2 2 7 Rosa Benjamin. [address] [place] [address], [address], [place], [facility], . tel: [phone] [facility] [address], [place], [place], [id number], [place] tel:[phone] [facility] No Information 7 Rosa Benjamin. [address] [facility], [address], [place], [place], [facility], [place]. tel:[phone] [facility], [place], [place], [address], [place] tel:[phone] [facility] No Information b-0 3-201 7 Rosa Benjamin. [address] [facility], [address], [place], [address], [place]. tel: [phone] [facility], [address], [place], [place], [address], [place] tel:[phone] [facility] No Information 7-201 7 Rosa Benjamin. [address] [facility], [address], [place], [address], [place]. tel: [phone] [facility] [address], [place], [place], [address], [place] tel:[phone] [facility] No Information 0-201 7 Rosa Benjamin. [address] [facility], [address], [place], [address], [place]. tel: [phone] [facility], [place], [address], [place] tel:[phone] [facility] No Information 0 6-201 7 Rosa Benjamin. [address] [facility], [address], [place], [address], [place]. tel: [phone] [facility] [address], [place], [place], [address], [place] tel:[phone] [facility] No Information Aug-2 9-201 6 Rosa Benjamin. [address] [place] [address], [address], [place], [address], [place]. tel: [phone] [facility] [address], [place], [place], [address], [place] tel:[phone] [facility] No Information Aug-2 3-201 6 Rosa Benjamin. [address] [facility], [address], [place], [address], [place]. tel: [phone] [facility], [place], [place], [address], [place] tel:[phone] [facility] No Information Dec-0 7-201 6 Rosa Benjamin. [address] [facility], [address], [place], [address], [place]. tel: [phone] [employer], [address], [place], [place], [address], tel:[phone] [facility] No Information 6 Rosa Benjamin. [address] [facility], [address], [place], [facility], . tel: [phone] [employer], [place], [place], [address], tel:[phone] [facility] Abnormal postureMuscle weakness (generalized)Oth er intervertebral disc degeneration, lumbar region 6 Rosa Benjamin. [address] [facility], [address], [place], [facility], . tel: [phone] Family History Family Member Type Diagnosis Age At Onset No Information Payers Payer name Insurance type Covered constitution party ID Xavier augustin(s) Reynold CI [id number] Social History Type Description Quantity Date Captured Comments Sex Female Smoking Status No Information Chief Complaint And Reason For Visit No Information Reason For Referral Reason For Referral No Information History Of Present Illness Encounter Date Complaint History Of Prese nt Illness No Information Functional Status Date Functional Assessmen t No Information Instructions Date Instruction Additional Infor mansoor Giving encouragement to exercise Related to Overweight Giving encouragement to exercise Related to Overweight Assessments Type Assessment Date No Information Patient Care Teams Name Effective Dates (start - stop) Status Members No Information
--- OUTSIDE RECORDS SUMMARY | 2024-11-29 17:33 | XMS_ITS | Clinical Summary ---
Author Organization [facility] Address [address] [place] [address] Care Team Providers Care Copy Chief Name Role Phone Len Tran MD Primary Care Provider [phone] Murphy Osorio MD Unavailable Eli Phillips NP Unavailable Barron Rico DO Unavailable [phone] Judie Starks Unavailable Brenda Loomis MD Unavailable [phone] Francisco Javier Curry MD Unavailable Unique Dupont MD Unavailable Adina Taylor DNP Unavailable [phone] Allergies Active Allergy Reactions Criticality Noted [...] 11/08/2024 Assessment & Plan (11/08/2024 9:00 AM MECHANICAL LABORATORY TECHNICIAN): Advised pt to contact her gi and [...] 11/04/2022 Assessment & Plan (11/04/2022 5:31 PM MECHANICAL LABORATORY TECHNICIAN): Start PT. Osteoarthritis of both knees 11/04/2022 Assessment & Plan (11/04/2022 5:32 PM MECHANICAL LABORATORY TECHNICIAN): Check bilat knee xrays. Start PT. Discussed [...] 08/26/2022 Assessment & Plan (09/30/2022 7:47 AM MECHANICAL LABORATORY TECHNICIAN): H/H 9.6-31.1. Her ferritin and iron are [...] iron. Assessment & Plan (08/26/2022 1:50 PM MECHANICAL LABORATORY TECHNICIAN): H/H 9.6-31.1 Will check anemia panel. Has [...] examination. Assessment & Plan (11/08/2024 8:56 AM MECHANICAL LABORATORY TECHNICIAN): Low cdai. Greatly improved since we changed [...] wrist. Assessment & Plan (10/16/2023 10:13 AM MECHANICAL LABORATORY TECHNICIAN): Mod cdai. Having more joint pain since last visit, will see if insurance will approve humira weekly. Today she was given 2 boxes of humira to use one injection weekly. She was informed of increased risk of infection with humira weekly. F/u in 1 month to re-evaluate. If she continues to flare up in [facility] we can increase her imuran from 150mg [...] wrist. Assessment & Plan (08/01/2023 8:40 AM MECHANICAL LABORATORY TECHNICIAN): Low cdai. Not worse since last visit. Has improved on humira and imuran. If she flares up in [facility] we can increase her imuran from 150mg [...] and imuran. [facility]uran [facility] 150[facility] [...] wrist. Assessment & Plan (11/04/2022 5:30 PM MECHANICAL LABORATORY TECHNICIAN): High cdai. Failing stelara. Will stop it [...] wrist. Assessment & Plan (09/30/2022 9:47 AM MECHANICAL LABORATORY TECHNICIAN): Moderate CDAI. Tolerating imuran 50mg po every [...] wrist. Assessment & Plan (08/26/2022 3:07 PM MECHANICAL LABORATORY TECHNICIAN): Low moderate CDAI today. Has previous diagnosis [...] wrist. Assessment & Plan (08/12/2022 12:49 PM MECHANICAL LABORATORY TECHNICIAN): Low moderate CDAI. Has previous hx of [...] 08/12/2022 Assessment & Plan (11/08/2024 7:25 AM MECHANICAL LABORATORY TECHNICIAN): HLA B27 neg 11/2020 HLA B51 negative [...] 11/04/2022. Assessment & Plan (10/16/2023 10:14 AM MECHANICAL LABORATORY TECHNICIAN): HLA B27 neg 11/2020 HLA B51 negative [...] 11/04/2022. Assessment & Plan (08/01/2023 8:40 AM MECHANICAL LABORATORY TECHNICIAN): HLA B27 neg 11/2020 HLA B51 negative [...] 11/04/2022. Assessment & Plan (11/04/2022 5:30 PM MECHANICAL LABORATORY TECHNICIAN): HLA B27 neg 11/2020 HLA B51 negative [...] 11/04/2022. Assessment & Plan (09/30/2022 7:53 AM MECHANICAL LABORATORY TECHNICIAN): HLA B27 neg 11/2020 HLA B51 negative 07/2022 Heb B negative 07/2022 Hep C Ab + but confirmatory Heb C RNA PCR negative 07/2022 Avise 07/2022:Anti thyroglobulin. Anti cardiolipin IgG Quant gold neg 07/2022 TPTM wnl 16 on 07/2022 Cxr 08/21---clear lungs but 9cm hiatal hernia suspected. Assessment & Plan (08/26/2022 10:08 AM MECHANICAL LABORATORY TECHNICIAN): HLA B27 neg 11/2020 HLA B51 negative 07/2022 Heb B negative 07/2022 Hep C Ab + but confirmatory Heb C RNA PCR negative 07/2022 Avise 07/2022:Anti thyroglobulin. Anti cardiolipin IgG Quant gold neg 07/2022 TPTM wnl 16 on 07/2022 Cxr 08/21---clear lungs but 9cm hiatal hernia suspected. Assessment & Plan (08/12/2022 8:18 AM MECHANICAL LABORATORY TECHNICIAN): HLA B27 neg 11/2020 Crohn's disease with [...] control. Assessment & Plan (08/26/2022 9:53 AM MECHANICAL LABORATORY TECHNICIAN): Seekrystian jama on Stelara. Assessment & Plan (08/12/2022 12:49 PM MECHANICAL LABORATORY TECHNICIAN): Seekrystian jama on Stelara. Intranasal ulcers 08/12/2022 Assessment & Plan (08/12/2022 12:50 PM MECHANICAL LABORATORY TECHNICIAN): Check serologies. Chronic pain of both knees 08/12/2022 Assessment & Plan (09/30/2022 7:43 AM MECHANICAL LABORATORY TECHNICIAN): Normal bilat knee xrays. If symptoms worse will start PT and consider MRI. Assessment & Plan (08/26/2022 1:54 PM MECHANICAL LABORATORY TECHNICIAN): Normal bilat knee xrays. If symptoms worse will start PT and consider MRI. Assessment & Plan (08/12/2022 12:50 PM MECHANICAL LABORATORY TECHNICIAN): Check bilat knee Xrays. Arthritis 04/02/2022 Overview (04/02/2022): Secondary to Crohn's Marijuana use 04/02/2022 Hypokalemia 02/18/2022 Intractable nausea and vomiting 02/18/2022 Leukocytosis (leucocytosis) 02/18/2022 Moderate episode of recurrent major depressive d isorder 02/17/2020 Spinal instabilities, lumbar region 12/22/2018 Overview (12/22/2018): Added automatically from request for surgery [id number] Assessment & Plan (09/30/2019 11:12 AM MECHANICAL LABORATORY TECHNICIAN): Assessment Healing fusion L4-5 and L5-S1 Plan [...] (12/22/2018): Added automatically from request for surgery [id number] Assessment & Plan (04/21/2019 11:34 AM CDT): [...] (12/22/2018): Added automatically from request for surgery [id number] Herniated nucleus pulposus, L5-S1 12/22/2018 Overview (12/22/2018): Added automatically from request for surgery [id number] Former smoker 11/18/2018 Other intervertebral disc displacement, lumbar r egion 11/18/2018 Assessment & Plan (11/18/2018 9:58 AM MECHANICAL LABORATORY TECHNICIAN): Assessment Segmental instability L4-5 L5-S1 central disc [...] Department Care Team Description 11/24/2024 Orders Only [address] [phone] Judie Starks PA 11/24/[address] [address] Sukhdev Diaz Script Error 11/12/[address] [address] Sukhdev Diaz Humira denied 11/09/2024 Results Follow-Up [address] [address] Murphy Osorio MD 11/08/2024 8:30 AM MECHANICAL LABORATORY TECHNICIAN Office Visit [address] [address] Judie Starks PA 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 Emergency Department [address] [place] [phone] Muna John MD Vomiting and diarrhea (Primary Dx); Anemia, unspecified type Discharge Disposition: Discharge to home or self care 10/05/2024 Orders Only [facility] Ophthalmology [address] [facility] [address] [place] [phone] Tracey Stovall MD Idiopathic intracranial hypertension (Primary Dx); 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; Papilledema 09/06/2024 Telephone [facility] Neuro Sleep [address] [place] [address] Adina Taylor DNP 09/06/2024 Orders Only [facility] Neuro Sleep [address] [place] [phone] Adina Taylor DNP JENNIFER (obstructive sleep apnea) [...] on file Legal Sex Female 7:58 PM MECHANICAL LABORATORY TECHNICIAN Gender Identity Female 09/25/2022 5:40 PM MECHANICAL LABORATORY TECHNICIAN Sexual Orientation Bisexual 09/25/2022 5: 40 PM MECHANICAL LABORATORY TECHNICIAN Obstetrics History Para Term AB IAB SAB Ectopic Multiple Livin g Live Births 0 0 0 0 0 0 0 0 0 0 0 Last Filed Vital Signs Vital Sign Reading Time Taken Comments Blood Pressure 122/84 11/08/2024 8:36 AM MECHANICAL LABORATORY TECHNICIAN Pulse 78 11/08/2024 8:36 AM MECHANICAL LABORATORY TECHNICIAN Temperature 36.4 C (97.6 F) 10/13/2024 5:55 PM MECHANICAL LABORATORY TECHNICIAN Respiratory Rate 18 10/13/2024 11:20 PM MECHANICAL LABORATORY TECHNICIAN Oxygen Saturation 97% 11/08/2024 8:36 AM MECHANICAL LABORATORY TECHNICIAN Inhaled Oxygen Concentration - - Weight 127 kg (280 lb) 11/08/2024 8:36 AM MECHANICAL LABORATORY TECHNICIAN Height 167.6 cm (5' 6 ) 11/08/2024 8:36 AM MECHANICAL LABORATORY TECHNICIAN Body Mass Index 45.19 11/08/2024 8:36 AM MECHANICAL LABORATORY TECHNICIAN Plan of Treatment Health Maintenance Due Date [...] this topic Medical Devices Implanted Type Area Pen Ruler Operator Device Identifier Shelf Expiration Date Model / Serial / Lot Medtronic Sofamor Danek [id number] Infuse 18mm 26mm Absorbable Sponge Sterile Water Syringe Needle - [id number] Implanted:Qty: 1 on 02/01/2019 by Len Dorantes MD at [facility] N/A: Spine Lumbar Medtronic Sofamor Danek 09/21/2020 [id number] / / [id number] Medtronic Sofamor Danek [id number] Infuse 14mm 23mm Absorbable Sponge Sterile Water Syringe Needle - [id number] Implanted:Qty: 1 on 02/01/2019 by Len Dorantes MD at [facility] N/A: Spine Lumbar Medtronic Sofamor Danek 12/20/2020 [id number] / / [id number] [employer] 2560-24 6mm 24mm Spine Lumbar Screw Bone Nonsterile - [id number] Implanted:Qty: 8 on 02/01/2019 by Len Dorantes MD at [facility] N/A: Spine Lumbar [employer] 2560-24 / / [employer] 34-B87-61-9 Contact [id number] 8d Spacer Spinal Peek Sterile Latex Free - [id number] Implanted:Qty: 1 on 02/01/2019 by Len Dorantes MD at [facility] N/A: Spine Lumbar [employer] [id number] 07/10/2023 34-A30-10- 8 / / [id number] Description:L5 - S1 [employer] 25-Lp-34 34mm Spine Lumbar Anterior Plate Bone Nonsterile - [id number] Implanted:Qty: 1 on 02/01/2019 by Len Dorantes MD at [facility] N/A: Spine Lumbar [employer] 25-LP-34 / / Description:L5 - S1 [employer] 34-F29-25-3 Contact Option Vbr [id number] Lordosis Back Cutting Teeth - [id number] Implanted:Qty: 1 on 02/01/2019 by Len Dorantes MD at [facility] N/A: Spine Lumbar [employer] [id number] 07/10/2023 34-A30-12- 4 / / [id number] Description:L 4-L5 [employer] 25-Lp-36 36mm Spine Lumbar Anterior Plate Bone Nonsterile - [id number] Implanted:Qty: 1 on 02/01/2019 by Len Dorantes MD at 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) Encounter for long-term (current) use of medications CBC WITH AUTO DIFFERENTIAL Routine 11/08/2024 9:06 AM MECHANICAL LABORATORY TECHNICIAN 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) Encounter for long-term (current) use of medications ERYTHROCYTE SEDIMENTATION RATE Routine 11/08/2024 9:06 AM MECHANICAL LABORATORY TECHNICIAN 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) Encounter for long-term (current) use of medications URINALYSIS, MICROSCOPIC ONLY STAT 10/13/2024 10:04 PM MECHANICAL LABORATORY TECHNICIAN URINALYSIS AND REFLEX TO MICROSCOPIC AND CULTURE STAT 10/13/2024 10:04 PM MECHANICAL LABORATORY TECHNICIAN POCT HCG, URINE Routine 10/13/2024 10:01 [address]CHANICAL LABORATORY TECHNICIAN CT ABDOMEN PELVIS W CONTRAST ED 10/13/2024 8:16 PM MECHANICAL LABORATORY TECHNICIAN EGFR STAT 10/13/2024 6:04 PM MECHANICAL LABORATORY TECHNICIAN DIFFERENTIAL AUTO STAT 10/13/2024 6:0 4 PM MECHANICAL LABORATORY TECHNICIAN COMPREHENSIVE METABOLIC PANEL STAT 10/13/2024 6:04 PM MECHANICAL LABORATORY TECHNICIAN CBC WITH AUTO DIFFERENTIAL STAT 10/13/2024 6:04 PM MECHANICAL LABORATORY TECHNICIAN PAP AND HIGH RISK HPV, REFLEX TO GENOTYPING Routine 12/05/2020 3:07 PM CDT Routine gynecological examination from Last 3 Months or Most Recently Relevant to Health Maintenance Results * (ABNORMAL) CBC with auto differential (11/08/2024 9:06 AM MECHANICAL LABORATORY TECHNICIAN) WBC 4.9 3.8 - 10.8 Thousand/u L [...] [facility] Blood 11/08/2024 9:06 AM MECHANICAL LABORATORY TECHNICIAN 11/08/2024 9:09 AM MECHANICAL LABORATORY TECHNICIAN Judie REYNOLDS LAB BLOOD ORDERAB LES Final Result Performing Organization Address [facility]/ZIP Co de Phone Number QUEST [facility] [address] [place] [address] * Erythrocyte sedimentation rate (11/08/2024 9:06 AM MECHANICAL LABORATORY TECHNICIAN) Erythrocyte sedimentation rate 11 < OR = 20 mm/h [facility] Blood 11/08/2024 9:06 AM MECHANICAL LABORATORY TECHNICIAN 11/08/2024 9:09 AM MECHANICAL LABORATORY TECHNICIAN Judie REYNOLDS LAB BLOOD ORDERAB LES Final Result Performing Organization Address [facility] Co de Phone Number [facility] [address] [place] [address] * CRP (acute phase) (11/08/2024 9:06 AM MECHANICAL LABORATORY TECHNICIAN) C-RP <3.0 <8.0 mg/L [facility] Blood 11/08/2024 9:06 AM MECHANICAL LABORATORY TECHNICIAN 11/08/2024 9:09 AM MECHANICAL LABORATORY TECHNICIAN Judie REYNOLDS LAB BLOOD ORDERAB LES Final Result Performing Organization Address [facility] Co de Phone Number [facility] [address] [place] [address] * Lipase (11/08/2024 9:06 AM MECHANICAL LABORATORY TECHNICIAN) LIPASE 21 7 - 60 U/L [facility] 11/08/2024 9:06 AM MECHANICAL LABORATORY TECHNICIAN 11/08/2024 9:09 AM MECHANICAL LABORATORY TECHNICIAN Judie REYNOLDS LAB BLOOD ORDERAB LES Final Result Performing Organization Address [facility]/ZIP Co de Phone Number [facility] [address] [place] [address] * (ABNORMAL) Amylase (11/08/2024 9:06 AM MECHANICAL LABORATORY TECHNICIAN) Pathologist [facility] Amylase 15(L) 21 - 101 U/L [facility] 11/08/2024 9:06 AM MECHANICAL LABORATORY TECHNICIAN 11/08/2024 9:09 AM MECHANICAL LABORATORY TECHNICIAN Judie Gabriela REYNOLDS LAB BLOOD ORDERAB LES Final Result Performing Organization Address [facility] de Phone Number [facility]ST [facility] [address] [place] [address] * (ABNORMAL) Comprehensive metabolic panel (11/08/2024 9:06 AM MECHANICAL LABORATORY TECHNICIAN) Pathologist [facility] Glucose 100(H) 65 - 99 mg/dL [facility] [...] [facility] Blood 11/08/2024 9:06 AM MECHANICAL LABORATORY TECHNICIAN 11/08/2024 9:09 AM MECHANICAL LABORATORY TECHNICIAN us Judie REYNOLDS LAB BLOOD ORDERAB LES Final Result [facility] [address] [address] [facility] [place] [address] * (ABNORMAL) Urinalysis reflex to microscopic and culture Urine (10/13/2024 10:04 PM MECHANICAL LABORATORY TECHNICIAN) Color, ur Straw Yellow Clarity, ur Clear Clear [facility] Specific gravity, ur 1.023 1.003 - 1.030 [facility] pH, urine 7.5 [facility] Comment: Interpretive Data U rine pH is affected by diet, medications, systemic acid-base disturbances, and renal tubular function. pH may affect urinary stone formation. For example, urine pH below 6.0 may help reduce the tendency for calcium phosphate stones and pH greater than 6.0 may reduce the tendency for uric acid stone formation. Source: [facility] Current Interpretive Data was last revised on 2017 Protein, ur ql Negative Negative [facility] Glucose, ur ql Trace(A) Negative [facility] Ketones, ur 1+(A) Negative [facility] Bilirubin, ur Negative Negative [facility] Blood, ur Trace(A) Negative [facility] Urobilinogen, ur <2.0 <2.0 mg/dL [facility] Nitrite, ur Negative Negative [facility] Leukocyte esterase, ur Negative Negative [facility] UA reflex comment Reflex to microscopic UA will be performed. [facility] Urine 10/13/2024 10:0 4 PM MECHANICAL LABORATORY TECHNICIAN 10/13/2024 10:04 PM MECHANICAL LABORATORY TECHNICIAN Result [facility] Muna John MD LAB MICROBIOLOGY - GENERAL ORDERABLES Final Result Performing Organization Address [facility] Co de Phone Number [facility] [address] [place] [address] * Urinalysis, microscopic only (10/13/2024 10:04 PM MECHANICAL LABORATORY TECHNICIAN) WBC, ur 0-5 0 - 5 /HPF RBC, ur 0-2 0 - 2 /HPF [facility] Epithelial cells, squamous, ur 1-5 0 - 5 /HPF [facility] Culture Reflex Comment Reflex conditions for urine culture (WBC >10) not met. [facility] Urine 10/13/2024 10:0 4 PM MECHANICAL LABORATORY TECHNICIAN 10/13/2024 10:22 PM MECHANICAL LABORATORY TECHNICIAN Yared Kim MD LAB URINE ORDERABLES Final R esult Performing Organization Address [facility] Co de Phone Number [facility] [address] Department [place] [address] * POCT hCG, urine (10/13/2024 10:01 PM MECHANICAL LABORATORY TECHNICIAN) HCG, ur, POC Negative Negative Lot Number [id number] QC Backgroud Clear Acceptable QC Control Line Acceptable Urine 10/13/2024 10:0 1 PM MECHANICAL LABORATORY TECHNICIAN Result [facility] Muna John MD POINT OF CARE TEST ORDERAB LES Final Result * CT Abdomen Pelvis W Contrast (10/13/2024 8:16 PM MECHANICAL LABORATORY TECHNICIAN) Anatomical Region Laterality Modality Body N/A Computed Tomogra phy 10/13/2024 8:10 PM MECHANICAL LABORATORY TECHNICIAN Impressions 10/14/2024 6:17 AM MECHANICAL LABORATORY TECHNICIAN 1. Completely collapsed colon with resultant wall prominence. No definite CT evidence of acute colitis 2. Moderate to large hiatal hernia 3. Subacute to chronic anterior left 6th rib fracture For the purposes of quality supervisor, this study was initially interpreted by teleradiology. There is no significant discrepancy. Electronically signed by: Caryl Zhu M.D. Narrative 10/14/2024 6:17 AM MECHANICAL LABORATORY TECHNICIAN EXAM: CT abdomen and pelvis with contrast [...] rib fracture For the purposes of quality supervisor, this study was initially interpreted by teleradiology. There is no significant discrepancy. Electronically signed by: Caryl Zhu M.D. Muna John MD IMG CT PROCEDURES Final Re sult * eGFR (10/13/2024 6:04 PM MECHANICAL LABORATORY TECHNICIAN) eGFR >90 >=60 mL/min/1. 73 m2 Comment: [...] last reviewed 2021. Blood 10/13/2024 6:04 PM MECHANICAL LABORATORY TECHNICIAN 10/13/2024 6:42 PM MECHANICAL LABORATORY TECHNICIAN Muna John MD LAB BLOOD ORDERABLES Final Result [facility] [address] Department [place] [address] * (ABNORMAL) Differential, auto (10/13/2024 6:04 PM MECHANICAL LABORATORY TECHNICIAN) Neutrophil abs 7.0(H) 1.5 - 6.5 K/cumm Imm gran abs 0.0 0.0 - 0.1 K/cumm [facility] Lymphocyte abs 0.8 0.8 - 3.3 K/cumm [facility] Monocyte abs 0.3 0.2 - 0.8 K/cumm [facility] Eosinophil abs 0.0 0.0 - 0.5 K/cumm [facility] Basophil abs 0.0 0.0 - 0.1 K/cumm [facility] Neutrophil pct 85.9 % [facility] Comment: Interpretive Data Percent cell count reference ranges are not reported, since discordance with absolute values may lead to misinterpretation of CBC data. Current Interpretive Data was last revised on 2017. Imm gran pct 0.2 % [facility] Comment: Interpretive Data Percent cell count reference ranges are not reported, since discordance with absolute values may lead to misinterpretation of CBC data. Current Interpretive Data was last revised on 2017. Lymphocyte pct 9.8 % [facility] Comment: Interpretive Data Percent cell count reference ranges are not reported, since discordance with absolute values may lead to misinterpretation of CBC data. Current Interpretive Data was last revised on 2017. Monocyte pct 3.5 % [facility] Comment: Interpretive Data Percent cell count reference ranges are not reported, since discordance with absolute values may lead to misinterpretation of CBC data. Current Interpretive Data was last revised on 2017. Eosinophil pct 0.1 % [facility] Comment: Interpretive Data Percent cell count reference ranges are not reported, since discordance with absolute values may lead to misinterpretation of CBC data. Current Interpretive Data was last revised on 2017. Basophil pct 0.5 % [facility] Comment: Interpretive Data Percent cell count reference ranges are not reported, since discordance with absolute values may lead to misinterpretation of CBC data. Current Interpretive Data was last revised on 2017. Blood 10/13/2024 6:04 PM MECHANICAL LABORATORY TECHNICIAN 10/13/2024 6:42 PM MECHANICAL LABORATORY TECHNICIAN us Muna John MD LAB BLOOD ORDERABLES Final Result Performing Organization Address City/[facility]/ZIP Co de Phone Number [facility] [address] [employer] [place] [address] * (ABNORMAL) CBC with auto differential (10/13/2024 6:04 PM MECHANICAL LABORATORY TECHNICIAN) Pathologist [facility] WBC 8.2 3.8 - 9.9 K/cumm Hgb 8.8(L) 11.9 - 15.5 g/dL [facility] Hct 31.2(L) 35.6 - 45.5 % [facility] Plt 342 150 - 400 K/cumm [facility] MPV 10.5 9.1 - 12.3 fL [facility] RBC 3.64(L) 3.90 - 5.20 M/cumm [facility] MCV 85.7 81.3 - 96.4 fL [facility] MCH 24.2(L) 27.1 - 33.3 pg [facility] MCHC 28.2(L) 32.3 - 35.7 g/dL [facility] RDW CV 17.4(H) 11.1 - 14.9 % [facility] RDW SD 53.9(H) 35.7 - 48.1 fL [facility] NRBC abs 0.00 0.00 - 0.01 K/cumm [facility] Blood Venous blood specimen / Unknown 10/13/2024 6:04 PM MECHANICAL LABORATORY TECHNICIAN 10/13/2024 6:42 PM MECHANICAL LABORATORY TECHNICIAN us Muna John MD LAB BLOOD ORDERABLES Final Result [facility] [address] Department [place] [address] * (ABNORMAL) Comprehensive metabolic panel (10/13/2024 6:04 PM MECHANICAL LABORATORY TECHNICIAN) Sodium 142 135 - 145 mmol/L Potassium, pl 4.3 3.3 - 4.9 mmol/L [facility] Chloride 107 97 - 110 mmol/L [facility] CO2 23 22 - 32 mmol/L [facility] Anion gap 12 2 - 15 mmol/L [facility] BUN 6 6 - 25 mg/dL [facility] Creatinine 0.64 0.60 - 1.10 mg/dL [facility] Glucose 145 70 - 199 mg/dL [facility] Comment: Interpretive Data Fasting glucose >/= 126 [...] 2022. Calcium 8.4(L) 8.5 - 10.3 mg/dL [facility] Bilirubin, total 0.2 0.1 - 1.2 mg/dL [facility] Protein, pl 7.5 6.5 - 8.5 g/dL [facility] Albumin 4.3 3.5 - 5.0 g/dL [facility] Alk phos 113 40 - 130 Units/L [facility] ALT 20 7 - 45 Units/L [facility] AST 31 10 - 45 Units/L [facility] Comment:Slightly Hemolyzed S pecimen Blood Venous blood specimen / Unknown 10/13/2024 6:04 PM MECHANICAL LABORATORY TECHNICIAN 10/13/2024 6:42 PM MECHANICAL LABORATORY TECHNICIAN us Muna John MD LAB BLOOD ORDERABLES Final Result [facility] [address] Department [place] [address] * Pap and High Risk HPV, reflex to Genotyping (12/05/2020 3:07 PM CDT) Swab (Pap test) 12/05/2020 3 :07 PM CDT 12/07/2020 12:53 PM CDT Narrative [facility] 12/08/2020 12:08 PM CDT [facility] results best viewed via link to PDF [address] [address] Tele: Bernadette Jama MD - Cooperative Education Director CYTOLOGY REPORT Patient Name: ANTONIA ARANDA Address: [address] [place] [address] 63 Gender: F : 1980 (Age: 40) Service: Laboratory Location: Lab Hospital #: [id number] Patient Type: [facility] Lab Taken: 12/05/2020 Reported: 12/08/2020 Physician(s): [...] LAB CYTOLOGY ORDERABLES F inal Result PATHOLOGY [facility] Laboratory Receiving [address] [place] [address] from Last 3 Months or Most Recently Relevant to Health Maintenance Insurance [employer] OPEN ACCESS CIGNA CIGNA OPEN ACCESS CIGNA Advance Directives For more information, please contact: [phone] * Full Code (Latest Code Status on File) Date Activated Date Inactivated Comments 02/01/2019 1:47 PM 02/02/2019 3:38 PM Care Teams Copy Chief Relationship Specialty Start Date End Date PreLen mascorro MD [address] [place] [address] PCP - General 12/06/16 Murphy Osorio MD [address] [place] [address] Consulting Physician Rheumatology 07/16/22 Eli Phillips NP [address] [place] [address] Nurse Practitioner 10/03/22 Barron Rico DO [address] [place] [address] Primary Eye Care Provider Optometry 10/22/22 Judie Starks PA [address] [place] [address] Physician Automatic Serging Machine Operator Rheumatology 10/22/22 Brenda Loomis MD [address] [place] [address] Plant Tech Hematology 10/22/22 Francisco Javier Curry MD [address] [place] [address] Oven Tender Gastroenterology 11/05/22 [place] [address] [address] [address] [place] [address] Consulting Physician Pain Management 01/20/24 Adina Taylor DNP [address] [place] [address] Nurse Practitioner Neurology 07/16/24
--- OUTSIDE RECORDS SUMMARY | 2024-11-29 17:33 | XMS_ITS | Referral Summary ---
Author Organization [facility] [employer] Address [address] [place] [address] Care Team Providers Care Conservation Educator Name Role Phone Len Tran MD Primary Care Provider [phone] Source Comments [facility] [employer],non-owned Affiliates and Associated Physician Practices is amultiple site organization consisting of ambulatory clinics and hospital sitesin [place], [place], [place] and [place]. This disclosure is being madepursuant to the Care Everywhere program and may not contain all information available regarding this patient. Last updated 18.[facility] [employer] Allergies Active Allergy Reactions Criticality Noted Date [...] Description 02/28/2025 2:15 PM CDT Office Visit [facility] - [facility] [address] [place] [address] Roya Kimble MD [address] [place] [address] Procedures Procedure Name Priority Date/Time Associated Diagnosis Comments PAP IMAGE-GUIDED W HPV Routine 06/02/2023 1:51 PM CDT Encounter for gynecological examination with abnormal finding COMPREHENSIVE METABOLIC PANEL STAT 05/09/2023 5:29 PM CDT from Last 3 Months or Most Recently Relevant to Health Maintenance Results * PAP IMAGE-GUIDED W HPV (06/02/2023 1:51 PM CDT) Case Report Gynecologic Cytology Report Case: [id number] Authorizing Provider: Roya Kimble, Collected: 06/02/2023 01:51 PM Ordering Location: [facility] - Received: 06/03/2023 12:36 [...] 3:22 PM CDT [facility] Interpretation HISTOLOGY TECHNOLOGIST Negative for intraepithelial lesion or malignancy. 06/06/2023 3:22 PM CDT [facility] Pap Footnote The Pap Smear is a screening test. False positive and false negative results occur. Negative results do not preclude abnormalities, thus clinical correlation is required. This specimen was evaluated by the ThinPrep Imaging System along with an additional manual rescreening by a signal engineer and/or pathologist. 06/06/2023 3:22 PM CDT [facility] Embedded Images 3:22 PM CDT [facility] Pathology/Cytolo gy MISCELLANEOUS SAMPLES / Unknown 06/02/2023 1:51 PM CDT 06/03/2023 12:36 PM CDT Roya Kimble MD LAB - PATHOL OGY/CYTOLOGY ORDERABLES Performing Organization Address City/State/[place] Co de Phone Number [facility] [address] [phone] * (ABNORMAL) COMPREHENSIVE METABOLIC PANEL (05/09/2023 5:29 [...] - 34 U/L 05/09/2023 5:52 PM CDT [facility] Protein Total 8.3 6.4 - 8.3 gm/dL 05/09/2023 5:52 PM CDT [facility] Albumin 4.1 3.4 - 5.0 gm/dL 05/09/2023 5:52 PM CDT [facility] Bilirubin Total 0.6 0.2 - 1.2 mg/dL 05/09/2023 5:52 PM CDT [facility] eGFR by CKD-EPI 82(L) >=90 mL/min/1.7 3 m2 05/09/2023 5:52 PM CDT [facility] Blood BLOOD SPECIMEN / Unknown Venipuncture / Unknown 05/09/2023 5:29 PM CDT 05/09/2023 5:34 PM CDT Bree London PA-C LAB - CHEMISTRY OR DERABLES [facility] [address] [place] [address] from Last 3 Months or Most Recently Relevant to Health Maintenance Care Teams Conservation Educator Relationship Specialty Start Date End Date PrelutLen montalvo MD [address] [place] [address] PCP - General Internal Medicine 10/25/17
--- OUTSIDE RECORDS SUMMARY | 2024-11-29 17:33 | XMS_ITS | Encounter Summary ---
Author Organization [facility] Address [address] [place] [address] Care Team Providers Care Paper Bag Machine Operator Name Role Phone Len Tran MD Primary Care Provider [phone] Encounter Details Date Type Department Care Team [...] week 11/19/2019 How often do you attend [facility] or yazdanism services? 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
[2024-11-29] MEDS: hydrOXYzine HCL 25 MG TABLET PO (18:22)
[2024-11-29 18:24] VITALS: BP 148/85; PULSE 92; RESP 25; O2SAT 99
== END 2024-11-29 19:41 | disposition home or self-care (01) ==
PROVIDERS: Emergency Provider Student in an Organized Health Care Education/Training Program
DX: R11.15 Cyclical vomiting syndrome unrelated to migraine (principal); K44.9 Diaphragmatic hernia without obstruction or gangrene; K50.90 Crohn's disease, unspecified, without complications; T83.32XA Displacement of intrauterine contraceptive device, initial encounter; M06.9 Rheumatoid arthritis, unspecified; Z98.1 Arthrodesis status; N20.0 Calculus of kidney; Y76.8 Miscellaneous obstetric and gynecological devices associated with adverse incidents, not elsewhere classified
CPT/HCPCS: 36415; 74177; 80053; 81001; 81025; 83690; 85025; 96361; 96374; 96375; 96376; 99284; A9270; J1200; J1630; J7121; Q9967